=== PATIENT | male | born 1975 | race Caucasian/White ===

== ENCOUNTER → 2018-07-10 08:10 | Outpatient (CLI) | payer OTHER, SELFPAY ==
[2018-07-10 10:08] LABS: Creatinine, Serum 1.18 mg/dL (0.70-1.30); EST Glomerular Filtration Rate 72 mL/min (>60); Est Glom Filt Rate - Afr Amer 87 mL/min (>60)
== END ==
PROVIDERS: Family Provider Family Medicine; PCP Family Medicine; Referring Provider Orthopaedic Surgery; Visit Provider Orthopaedic Surgery
DX: Z79.1 Long term (current) use of non-steroidal anti-inflammatories (NSAID) (principal)
CPT/HCPCS: 36415; 82565

== ENCOUNTER 2018-12-06 01:59 | Observation (INO) | payer OTHER, SELFPAY ==
[2018-12-06] VITALS (11 sets, daily range): BP systolic 124–162; BP diastolic 71–97; PULSE 60–83; RESP 10–16; TEMP 36.5–36.9; O2SAT 94–98; BMI 51.9; BMI 51.3; BMI 51.4
--- NOTE | 2018-12-06 02:00 | ED.RN ---
CALLED FOR EKG PER REQUEST, NO OLD EKGS IN MUSE
--- NOTE | 2018-12-06 02:12 | EKG12_ITS ---
Test Reason : CP Blood Pressure : / mmHG Vent. Rate : 078 BPM Atrial Rate : 078 BPM P-R Int : 154 ms QRS Dur : 104 ms QT Int : 400 ms P-R-T Axes : 046 021 036 degrees QTc Int : 456 ms Normal sinus rhythm Normal ECG Confirmed by POORNIMA PARMAR, JUSTINE ([id number]), publishing editor MARI EVANS ([id number]) on 12/09/2018 1:19:01 PM Referred By: RONEL Confirmed By:JUSTINE NOGUERA MD
--- NOTE | 2018-12-06 02:12 | RAD_ITS ---
HISTORY: chest pain EXAM:XR Chest 1 View portable COMPARISON: None FINDINGS: Portable overpenetrated technique. Mild elevation of the right hemidiaphragm compatible with chronic change. Normal heart size. No vascular congestion, pleural effusion, or acute pulmonary infiltration. No pneumothorax seen. The bony thorax appears intact. RAD/Chest 1 View (Portable) IMPRESSION: 1. No acute cardiopulmonary disease. at 0253 Reported and signed by: Keo Oates MD Electronically Signed: Keo Oates, at 2:52 EDT Tel , Service support ,
--- NOTE | 2018-12-06 02:22 | ED.DCSUM_ITS ---
- ER Visit Summary Date of Service: 12/06/18 Chief Complaint: Chest pain History of Present Illness: The patient is a 43 M presenting with chest pain. Patient states the pain is a tightness in his left and mid chest which radiates to his left arm and jaw. He has had associated diaphoresis and shortness of breath. He has had lightheadedness. This started 1 hour prior to arrival. He does not recall anything that makes this better or worse. He chews tobacco, his father had an OR age over 55. No other CAD risk factors. Denies PE/DVT risk factors. Physical Examination: Vitals are stable. Patient is afebrile. Alert no acute distress. HEENT exam is unremarkable. Neck is supple. Lungs are clear and equal bilaterally. Heart is regular rate and rhythm. Abdomen is soft nontender nondistended. Extremities are unremarkable. Skin is warm and dry. No focal neurologic deficit. Remainder of exam is unremarkable. Emergency Department Course and Treatment: Patient has an allergy to aspirin. EKG is sinus rate of 78 with no acute ischemic changes. Chest x-ray shows no acute process. CBC is normal except for white count 13.0. Chemistries unremarkable. Troponin is negative. On reevaluation patient is chest pain- free. Discussed with the hospitalist for observation. Disposition: Observation Impression: Chest pain This note was generated with [employer] dictation software. It may contain incorrect words, spelling, and punctuation that were not noted in review of the chart prior to signing ED Disposition - Plan for ED Patient: Referrals: Mau Encarnacion MD [Primary Care Provider] -
[2018-12-06 02:34] LABS: Absolute Lymphocyte Count 3.82 X10^3/ul (0.83-4.51); Absolute Neutrophil Count 7.7 X10^3/uL (2.0-7.7); Basophil# 0.04 X10^3/uL; Basophil% 0.3 % (0-1); Eosinophil# 0.24 X10^3/uL; Eosinophils% 1.8 % (0-5); Hematocrit 44.6 % (40-54); Hemoglobin 15.7 g/dl (13.0-16.5); Lymphocyte # 3.82 X10^3/ul (4.0); Lymphocyte % 29.4 % (19-41); Mean Corp Hgb Conc 35.2 g/gl (32-36); Mean Corpuscular Hgb 32.1 pg (27.0-32.0); Mean Corpuscular Volume 91.2 fL (80-94); Mean Platelet Vol. 10.9 fl (6.2-12.0); Monocyte# 1.15 X10^3/uL; Monocyte% 8.8 % (0-10); Neutrophil % 59.3 % (47-70); Platelet Count 268 K/mm3 (150-450); RBC Distribution Width CV 12.2 % (11.6-14.6); RBC Distribution Width SD 40.7 fl (35.1-43.9); Red Blood Count 4.89 M/mm3 (4.6-6.2)
[2018-12-06 02:37] LABS: POSITIVE COUNT NO; POSITIVE DIFFERENTIAL NO; POSITIVE MORPHOLOGY NO
[2018-12-06 02:47] LABS: Anion Gap 3 (5-15); BUN 18 mg/dL (7-18); BUN/Creat Ratio 14.5 RATIO (10-20); Calcium,Total 8.7 mg/dL (8.5-10.1); Chloride 105 mmol/L (98-107); Creatinine, Serum 1.24 mg/dL (0.70-1.30); EST Glomerular Filtration Rate 67 mL/min (>60); Est Glom Filt Rate - Afr Amer 82 mL/min (>60); Estimated Creatinine Clearance 79.31 ml/min; Glucose 94 mg/dL (74-106); Potassium 4.4 mmol/L (3.5-5.1); Sodium Level 138 mmol/L (136-145)
--- NOTE | 2018-12-06 03:41 | HP.PCM_ITS ---
Problem List (1) Chest pain at rest Status: Acute History of Present Illness Date of Admission: 12/06/18 Chief Complaint: chest pain The patient is a 43 year old M with a significant history of super morbid obesity who presented to the emergency department with chest pain at rest. His chest pain began a few hours before presented to the emergency department. His chest pain lasted for 10 minutes. The pain was substernal. It felt like a heaviness on his chest. Also he had a crampy sensation of his left. Further, he had pain in his jaw. He reports previous episodes of pain in his jaw and a crampy-like left arm pain and numbness of his fingers. His chest pain was relieved with walking up. He denies any aggravating factors. He was scared because of the chest pain. He reports restless leg associated with his chest pain. He denies any nausea, vomiting or diaphoresis. Past Medical History Medical History: Medical History (Last Updated 12/06/18 @ 07:17 by Rajinder Rdz MD) Morbid obesity E66.01 Allergies aspirin Allergy (Verified 12/06/18 01:59) Hives Home Medications: Ambulatory Orders Medication Instructions Recorded Celecoxib 200 mg PO DAILY 04/26/17 traMADol [Ultram] 50 - 100 mg PO Q8H PRN PRN #0 04/27/17 Surgical History: herniorrhaphy, - - Two back surgery; and two right ankle surgery. Lives: With Family Smoking Status: Current every day smoker Tobacco Use: Chew Alcohol: None - *Family History Maternal History Items: - - Patient do not know. Paternal History Items: Heart Disease, - - Leukemia Review of Systems Constitutional: Denies: Chills, Fever, Weight Change HEENT: Denies: Head Aches, Sinus Congestion, Sinus Drainage Cardiovascular: Reports: Chest Pain. Denies: Palpitations Respiratory: Denies: Cough, Shortness of breath at rest, Sputum production Gastrointestinal: Denies: Abdominal Pain, Nausea, Vomiting Genitourinary: Denies: Dysuria Musculoskeletal: Reports: Arm Pain. Denies: Joint Pain, Joint Tenderness Skin: Denies: Rash, Wounds Neurological: Denies: Numbness, Tingling, Focal weakness Psychiatric: Denies: Anxiety, Depression, Homicidal Ideations, Suicidal Ideations Hematologic/ Lymphatic: Denies: Easy Bruising, Easy Bleeding VTE Information - Inpt Only VTE Present on Admission: No VTE Mechan Device Prophylaxis: None VTE Pharm Prophylaxis ordered?: Yes Patient Problems: Active and Suspected Problems Chest pain at rest (Acute) - Physical Exam General: Alert, Oriented x3, Cooperative, - - Super morbidly obese. HEENT: Atraumatic, PERRLA, EOMI, Normocephalic Neck: Supple, No JVD, Negative Carotid Bruits Lungs: Clear to auscultation, Normal air movement Cardiovascular: Regular rate, No murmurs Abdomen: Bowel Sounds Present, Soft, Non Tender Extremities: No edema, Capillary Refill Less than 3 Seconds Skin: No rashes, No breakdown Musculoskeletal: No Tenderness to Palpation of Joints or Extremities Neurological: Cranial nerves II-XII grossly intact Psych/Mental Status: Normal Affect, Appropriate Vital Signs Temp Pulse Resp BP Pulse Ox 98.4 F 73 12 130/80 H 98 12/06/18 02:00 12/06/18 03:09 12/06/18 03:09 12/06/18 03:09 12/06/18 03:09 Oxygen Delivery Method Room Air Weight: 164.1 kg Body Mass Index (BMI) 51.9 Laboratory Tests Past 24 Hrs 12/06/18 12/06/18 02:25 02:25 WBC 13.0 H RBC 4.89 Hgb 15.7 Hct 44.6 MCV 91.2 MCH 32.1 H MCHC 35.2 RDW 12.2 RDW Differential 40.7 Plt Count 268 MPV 10.9 Immature Gran % (Auto) 0.400 Neut % (Auto) 59.3 Lymph % (Auto) 29.4 [place] % (Auto) 8.8 Eos % (Auto) 1.8 Baso % (Auto) 0.3 Absolute Neuts (auto) 7.7 Absolute Lymphs (auto) 3.82 Total Counted Not Reportable Sodium 138 Potassium 4.4 Chloride 105 Carbon Dioxide 30.0 Anion Gap 3 L BUN 18 Creatinine 1.24 Estim Creat Clear Calc 79.31 Est GFR (MDRD) Af Amer 82 Est GFR (MDRD) Non-Af 67 BUN/Creatinine Ratio 14.5 Glucose 94 Calcium 8.7 Troponin I < 0.015 Assessment/Plan All Active Problems Chest pain at rest (Acute) Injury of spinal nerve root at S1 level (Acute) Acute back pain (Acute) The patient is a 43 year old M with a significant history of super morbid obesity who presented to the emergency department with chest and numbness as well as pain in his jaw concerning for cardiac source of chest pain. Chest pain Admit to a monitored bed on PCU CXR independently reviewed confirms no acute cardiopulmonary process. EKG independently reviewed confirms EKG ASA 81 mg p.o. daily SL NTG 0.4 mg prn as needed for chest pain Morphine as needed for pain He reported that recently he had lipid level that was unremarkable. First cardiac enzymes was unremarkable. Serial cardiac enzymes Stat EKG as needed for chest pain Chemical stress test in the AM if the cardiac enzymes are negative. Because of right ankle surgery patient reported that he is unable to walk on a treadmill. Chronic pain Home NSAID held because of chest pain Home tramadol held because patient has PRN morphine ordered for pain. Tobacco abuse Chew tobacco . Counselled. DVT prophylaxis Continuous heparin ordered. Code Visit OBSV E&M: 89575 Initial observation care L3
--- NOTE | 2018-12-06 04:22 | EKG12_ITS ---
Test Reason : ADMIT EKG Blood Pressure : / mmHG Vent. Rate : 063 BPM Atrial Rate : 063 BPM P-R Int : 158 ms QRS Dur : 102 ms QT Int : 406 ms P-R-T Axes : 052 030 052 degrees QTc Int : 415 ms Normal sinus rhythm Normal ECG When compared with ECG of 06-DEC-2018 02:06, MANUAL COMPARISON REQUIRED, DATA IS UNCONFIRMED Confirmed by POORNIMA PARMAR, JUSTINE ([id number]), book or script editor MARI EVANS ([id number]) on 12/09/2018 2:02:47 PM Referred By: DR LOVETT Confirmed By:JUSTINE NOGUERA MD
--- NOTE | 2018-12-06 05:55 | NM_ITS ---
CLINICAL: 43-year-old male with reported history of chest discomfort. REST-REGADENOSON 99m Tc SESTAMIBI STRESS MYOCARDIAL PERFUSION SPECT COMPARISON: None available FINDINGS: Following the intravenous administration of 15.0 mCi of 99m Tc sestamibi, the resting myocardial perfusion acquisitions demonstrate relatively uniform perfusion noted throughout all left ventricular myocardial segments. The patient was administered intravenous regadenoson (0.4 mgm). Following the intravenous administration of 45.0 mCi of 99m Tc sestamibi, the post regadenoson images reveal decreased perfusion in the inferior, basal inferior and mid to basal anterior segments. The post stress resting left ventricular ejection fraction is calculated to be 64.0 % by gated SPECT technique. Wall motion and end systolic thickening are considered normal. NM/Nuclear Stress Test - Chemical IMPRESSION: 1. ABNORMAL REST-REGADENOSON STRESS 99m Tc SESTAMIBI MYOCARDIAL PERFUSION SPECT. A. Pharmacologic induced left ventricular ischemia involving the inferior, basal inferior, mid to basal anterior segments. B. Preservation of resting left ventricular myocardial systolic function. (Jodi et al, J Nucl Med 37: 105P, 1996). C. If false positive stress cardiac perfusion SPECT results are a diagnostic consideration, correlation with a stress echocardiogram may be of benefit for further evaluation in the setting of questionable cardiac perfusion SPECT imaging results. (Schinkel et al, Eur J Heart 24: 789, 2003). Electronically Signed: Kenrick Ontiveros DO at 13:55 EDT Tel , Service support ,
[2018-12-06 06:45] LABS: Prothrombin Time (Protime)PT. 13.1 SECONDS (11.7-14.9)
[2018-12-06 09:41] LABS: Bedside Glucose 86 mg/dL (70-110)
--- NOTE | 2018-12-06 14:41 | PN_ITS ---
<Damien Lr - Last Filed: 12/06/18 14:37> Patient Problems: Active and Suspected Problems (Last Updated 12/06/18 @ 07:17 by Rajinder Rdz MD) Chest pain at rest (Acute) Subjective: No further chest pain since admission. He had a positive stress test today. He has no prior hx cardiac dz. + father had UT. + uses chewing tobacco. 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 Chest pain has occurred intermittently for the past several weeks. is frustrated and wants answers. - Physical Exam General: Alert, Oriented x3, Cooperative HEENT: Atraumatic, PERRLA, EOMI, Normocephalic Neck: Supple, No JVD, Negative Carotid Bruits Lungs: Clear to auscultation, Normal air movement Cardiovascular: Regular rate, No murmurs Abdomen: Bowel Sounds Present, Soft, Non Tender, Obese Extremities: No edema, Capillary Refill Less than 3 Seconds Skin: No rashes, No breakdown Musculoskeletal: No Tenderness to Palpation of Joints or Extremities Neurological: Cranial nerves II-XII grossly intact Psych/Mental Status: Normal Affect, Appropriate, Alert and oriented to time, place, person, mood and affect Vital Signs Temp Pulse Resp BP Pulse Ox 97.9 F 83 16 124/71 H 95 12/06/18 14:08 12/06/18 14:08 12/06/18 14:08 12/06/18 14:08 12/06/18 14:08 Oxygen Delivery Method Room Air Weight: 358 lb 14.601 oz Body Mass Index (BMI) 51.3 Laboratory Tests Past 24 Hrs 12/06/18 12/06/18 12/06/18 02:25 02:25 05:30 WBC 13.0 H RBC 4.89 Hgb 15.7 Hct 44.6 MCV 91.2 MCH 32.1 H MCHC 35.2 RDW 12.2 RDW Differential 40.7 Plt Count 268 MPV 10.9 Immature Gran % (Auto) 0.400 Neut % (Auto) 59.3 Lymph % (Auto) 29.4 [place] % (Auto) 8.8 Eos % (Auto) 1.8 Baso % (Auto) 0.3 Absolute Neuts (auto) 7.7 Absolute Lymphs (auto) 3.82 Total Counted Not Reportable PT INR APTT Sodium 138 Potassium 4.4 Chloride 105 Carbon Dioxide 30.0 Anion Gap 3 L BUN 18 Creatinine 1.24 Estim Creat Clear Calc 79.31 Est GFR (MDRD) Af Amer 82 Est GFR (MDRD) Non-Af 67 BUN/Creatinine Ratio 14.5 Glucose 94 Calcium 8.7 Troponin I < 0.015 < 0.015 12/06/18 12/06/18 05:30 08:20 WBC RBC Hgb Hct MCV MCH MCHC RDW RDW Differential Plt Count MPV Immature Gran % (Auto) Neut % (Auto) Lymph % (Auto) [place] % (Auto) Eos % (Auto) Baso % (Auto) Absolute Neuts (auto) Absolute Lymphs (auto) Total Counted PT 13.1 INR 1.0 APTT 32.0 Sodium Potassium Chloride Carbon Dioxide Anion Gap BUN Creatinine Estim Creat Clear Calc Est GFR (MDRD) Af Amer Est GFR (MDRD) Non-Af BUN/Creatinine Ratio Glucose Calcium Troponin I < 0.015 POC Glucose 12/06/18 04:31 POC Glucose 86 Medical Necessity - Tobacco Use Smoking Status: Current every day smoker Tobacco Use: Chew Assessment/Plan All Active Problems (Last Updated 12/06/18 @ 07:17 by Rajinder Rdz MD) Acute back pain (Acute) Injury of spinal nerve root at S1 level (Acute) Chest pain at rest (Acute) 1. Chest pain - troponin neg. Tele neg. EKG neg. -Stress abnormal -Pt agreeable to further eval/cath/staying till saturday if needed -cardiology consulted -risk factors include tobacco use, family hx, obesity -recurrent episodic chest pain for several weeks. -he is allergic to aspirin 2. Tobacco abuse - chewing tobacco - patch if desired 3. Obesity - dietary eval 4. Htn - no prior hx - somewhat elevated, fluctuant while here, continue to trend, defer starting meds at this point. DC planning: pending further workup This patient was seen by Damien Lr PA-C under the supervision of Dr. Feng. <Luann Feng - Last Filed: 12/06/18 14:50> - Physical Exam Vital Signs Temp Pulse Resp BP Pulse Ox 97.9 F 83 16 124/71 H 95 12/06/18 14:08 12/06/18 14:08 12/06/18 14:08 12/06/18 14:08 12/06/18 14:08 Oxygen Delivery Method Room Air Weight: 358 lb 14.601 oz Body Mass Index (BMI) 51.3 Laboratory Tests Past 24 Hrs 12/06/18 12/06/18 12/06/18 02:25 02:25 05:30 WBC 13.0 H RBC 4.89 Hgb 15.7 Hct 44.6 MCV 91.2 MCH 32.1 H MCHC 35.2 RDW 12.2 RDW Differential 40.7 Plt Count 268 MPV 10.9 Immature Gran % (Auto) 0.400 Neut % (Auto) 59.3 Lymph % (Auto) 29.4 [place] % (Auto) 8.8 Eos % (Auto) 1.8 Baso % (Auto) 0.3 Absolute Neuts (auto) 7.7 Absolute Lymphs (auto) 3.82 Total Counted Not Reportable PT INR APTT Sodium 138 Potassium 4.4 Chloride 105 Carbon Dioxide 30.0 Anion Gap 3 L BUN 18 Creatinine 1.24 Estim Creat Clear Calc 79.31 Est GFR (MDRD) Af Amer 82 Est GFR (MDRD) Non-Af 67 BUN/Creatinine Ratio 14.5 Glucose 94 Calcium 8.7 Troponin I < 0.015 < 0.015 12/06/18 12/06/18 05:30 08:20 WBC RBC Hgb Hct MCV MCH MCHC RDW RDW Differential Plt Count MPV Immature Gran % (Auto) Neut % (Auto) Lymph % (Auto) [place] % (Auto) Eos % (Auto) Baso % (Auto) Absolute Neuts (auto) Absolute Lymphs (auto) Total Counted PT 13.1 INR 1.0 APTT 32.0 Sodium Potassium Chloride Carbon Dioxide Anion Gap BUN Creatinine Estim Creat Clear Calc Est GFR (MDRD) Af Amer Est GFR (MDRD) Non-Af BUN/Creatinine Ratio Glucose Calcium Troponin I < 0.015 POC Glucose 12/06/18 04:31 POC Glucose 86 Assessment/Plan Patient seen by Damien Lr PA-C under my supervision Patient was admitted with a complaint of chest pain. Troponins x 3 were negative, and EKG showed no acute ST changes. Patient seen and examined this morning. He had no complaints. Chest pain had not recurred. However he states last day he had similar chest pain. Review of systems otherwise negative. Labs and vitals reviewed. o/e: Vital Signs Height 5 ft 10.08 in Weight: 358 lb 14.601 oz Weight in Pounds 358.9 lbs Pulse Ox 95 Temperature 97.9 F Pulse Rate 83 Respiratory Rate 16 Blood Pressure 124/71 Blood Pressure Position Supine General: Alert, Oriented x3, Cooperative HEENT: Atraumatic, PERRLA, EOMI, Normocephalic Neck: Supple, No JVD, Negative Carotid Bruits Lungs: Clear to auscultation, Normal air movement Cardiovascular: Regular rate, No murmurs Abdomen: Bowel Sounds Present, Soft, Non Tender, Obese Extremities: No edema, Capillary Refill Less than 3 Seconds Skin: No rashes, No breakdown Musculoskeletal: No Tenderness to Palpation of Joints or Extremities Neurological: Cranial nerves II-XII grossly intact Psych/Mental Status: Normal Affect, Appropriate, Alert and oriented to time, place, person, mood and affect Patient had stress test this morning which was abnormal, which showed pharmacologic induced left ventricular ischemia involving the inferior, basal inferior and mid to basal anterior segments. Plan is for cardiac cath on Saturday. Rest of management as per Damien Lr PA-C's note, which I have reviewed and endorsed. Code Visit OBSV E&M: 61062 Subsequent observation care L2
--- NOTE | 2018-12-06 15:00 | CASEMGMT ---
Insurance Review for In Network Facilities if transfer is recommended: Chloe Panchal Aultman, [facility], [facility], , [employer]. Daphnie Iqbal, CASSCM
[2018-12-06] MEDS: Heparin Injection (Vial) 5,000 UNIT/ML VIAL 5000 UNIT SC ×2 (15:45→21:37)
[2018-12-06] MEDS: 0.9% NaCl Peripheral Flush Adult/Peds IV (19:59)
[2018-12-07] VITALS (10 sets, daily range): BP systolic 126–141; BP diastolic 66–86; PULSE 60–90; RESP 16; TEMP 36.4–36.8; O2SAT 95–96
[2018-12-07] MEDS: Heparin Injection (Vial) 5,000 UNIT/ML VIAL 5000 UNIT SC ×3 (05:02→20:14)
[2018-12-07] MEDS: 0.9% NaCl Peripheral Flush Adult/Peds IV (05:03)
[2018-12-07 06:28] LABS: Absolute Lymphocyte Count 3.51 X10^3/ul (0.83-4.51); Absolute Neutrophil Count 5.9 X10^3/uL (2.0-7.7); Basophil# 0.04 X10^3/uL; Basophil% 0.4 % (0-1); Eosinophil# 0.26 X10^3/uL; Eosinophils% 2.5 % (0-5); Hematocrit 43.9 % (40-54); Hemoglobin 15.2 g/dl (13.0-16.5); Lymphocyte # 3.51 X10^3/ul (4.0); Lymphocyte % 33.2 % (19-41); Mean Corp Hgb Conc 34.6 g/gl (32-36); Mean Corpuscular Hgb 31.7 pg (27.0-32.0); Mean Corpuscular Volume 91.6 fL (80-94); Mean Platelet Vol. 11.1 fl (6.2-12.0); Monocyte# 0.79 X10^3/uL; Monocyte% 7.5 % (0-10); Neutrophil # 5.94 X10^3/uL (2.7-7.7); Platelet Count 259 K/mm3 (150-450); RBC Distribution Width CV 12.3 % (11.6-14.6); RBC Distribution Width SD 41.5 fl (35.1-43.9); Red Blood Count 4.79 M/mm3 (4.6-6.2); White Blood Count 10.6 K/mm3 (4.4-11.0)
[2018-12-07 06:32] LABS: POSITIVE COUNT NO; POSITIVE DIFFERENTIAL NO; POSITIVE MORPHOLOGY NO
[2018-12-07 09:03] LABS: Cholesterol 174 mg/dL (200); High Density Lipoprotein 43 mg/dL; Triglycerides 192 mg/dL; Very Low Density Lipoprotein 38 mg/dL (5-40)
[2018-12-07 09:08] LABS: Hemoglobin A1c 5.5 % (4.2-6.3)
--- NOTE | 2018-12-07 09:13 | PCM.CONS.C ---
Problem List (1) Chest pain at rest Status: Acute Reason for Consult Date of Consultation: 12/07/18 History of Present Illness: The patient is a 43 year old M with past medical history significant for morbid obesity. He presented to the emergency room with complaints of anterior chest discomfort with radiation to the left arm neck and jaw. He describes this as pressure. The discomfort lasted about 10 minutes and was relieved on its own. In the hospital, his troponins were noted to be negative. He had a Lexiscan stress Cardiolite done which has been reported as showing possible inferior ischemia. Patient denies any history of exertional angina. According to him, he does get short of breath with moderate exertion. According to his , he snores loudly at night and seems to stop breathing on occasions. Denies any ankle edema. [] Past Medical History Allergies/Adverse Reactions: Allergies aspirin Allergy (Verified 12/06/18 01:59) Hives Home Medications: Ambulatory Orders Medication Instructions Recorded Celecoxib 200 mg PO DAILY 04/26/17 traMADol [Ultram] 50 - 100 mg PO Q8H PRN PRN #0 04/27/17 Surgical History: herniorrhaphy, - - Two back surgery; and two right ankle surgery. - *Family History Maternal History Items: - - Patient do not know. Paternal History Items: Heart Disease, - - Leukemia Lives: With Family Smoking Status: Current every day smoker Tobacco Use: Chew Alcohol: None Review of Systems - Review of Systems General: Denies: Fever, Chills, Anorexia Cardiovascular: Reports: Chest Discomfort at Rest, Shortness of Breath with Exertion, PND. Denies: Orthopnea Skin: Denies: Jaundice Neurological: Denies: History of TIA, History of CVA Hematologic/ Lymphatic: Denies: Easy Brusing, Easy Bleeding Subjectve: Comfortable. No apparent distress Objective: Vital Signs Temp Pulse Resp BP Pulse Ox 97.9 F 72 16 126/81 H 95 12/07/18 08:15 12/07/18 08:15 12/07/18 08:15 12/07/18 08:15 12/07/18 08:15 Oxygen Delivery Method Room Air Weight: 162.8 kg Body Mass Index (BMI) 51.3 Intake and Output for Last 24 Hours 12/05/18 12/06/18 12/07/18 23:59 23:59 23:59 Intake Total 840 / 840 Balance 840 / 840 General: Awake, Alert, Oriented x 3, Obese HEENT: Atraumatic, Normocephalic Oral: Moist Mucosa Neck: Supple Lungs: Clear to auscultation Cardiovascular: Regular Rhythm, Normal S1, Normal S2 Abdomen: Bowel Sounds Present, Soft, Non Tender, Obese Extremities: No edema Neurological: No Focal Motor or Sensory Deficit Psych/Mental Status: Appropriate 12/06/18 08:20: Troponin I < 0.015 12/07/18 06:00: WBC 10.6, RBC 4.79, Hgb 15.2, Hct 43.9, MCV 91.6, MCH 31.7, MCHC 34.6, RDW 12.3, RDW Differential 41.5, Plt Count 259, MPV 11.1, Immature Gran % (Auto) 0.400, Neut % (Auto) 56.0, Lymph % (Auto) 33.2, [place] % (Auto) 7.5, Eos % (Auto) 2.5, Baso % (Auto) 0.4, Absolute Neuts (auto) 5.9, Total Counted Not Reportable 12/07/18 06:00: Triglycerides 192, Cholesterol 174, LDL Cholesterol 93, VLDL Cholesterol 38, HDL Cholesterol 43 12/07/18 06:00: Hemoglobin A1c 5.5 Rhythm: Normal sinus rhythm EKG: Normal sinus rhythm ECHO: Stress Test: Pharmacologic induced left ventricular ischemia involving the inferior, basal inferior, mid to basal anterior segments Cardiac Cath: PCI: CT Surgery: Holter monitor: EPS: PPM: CXR: Chest CT Scan: Assessment/Plan 1. Episode of chest arm and jaw tightness. Abnormal stress test. Consider ischemia. Options discussed with patient. Coronary angiography with possible revascularization was offered. Risks benefits and alternatives were explained. He understands these and wishes to proceed. 2. Patient allergic to aspirin with history of hives. Load with clopidogrel in anticipation of possible revascularization. 3. Obesity. Counseled to lose weight. 4. History of nicotine dependence. Stop smoking. 5. Possible sleep apnea. Consider work-up for sleep apnea.
--- NOTE | 2018-12-07 09:46 | ECHOCS_ITS ---
Reason For Study: Chest Pain Procedure This was a 2D Doppler, Color Flow transthoracic echocardiogram. The study was technically difficult. Contrast injection was performed. Exam performed portable in patient room. Left Ventricle Normal LV size. Left ventricular systolic function is normal. The estimated ejection fraction is 60 %. Normal diastology for age. No regional wall motion abnormalities noted. Right Ventricle Normal RV size. Normal systolic function. Atria Normal left atrium. Normal right atrium. Mitral Valve Normal mitral valve. Tricuspid Valve Normal tricuspid valve. Unable to estimate RV systolic pressure due to inadequate jet, pulmonary artery pressure probably normal. Aortic Valve Normal aortic valve. Pulmonic Valve Normal pulmonic valve. Great Vessels Normal aortic root. The pulmonary artery is normal size. Normal inferior vena cava. Pericardium/Pleural No pericardial effusion. Medication Diluted definity 3ml given slow IV push to enhance endocardial definition. MMode/2D Measurements & Calculations LVIDd: 5.4 cm IVSd: 1.1 cm Ao root diam: 3.4 cm LVIDs: 3.2 cm LVPWd: 1.2 cm RVDd: 3.3 cm FS: 40.8 % LAV(MOD-bp): 35.8 ml LVAd ap4: 37.3 cm2 SV(MOD-sp4): 85.5 ml LAV(MOD-bp) Indexed: 13.4 ml/m2 EDV(MOD-sp4): 134.2 ml LAV(MOD-sp2): 40.1 ml EDV(sp4-el): 140.3 ml LAV(MOD-sp4): 31.2 ml LVAs ap4: 19.8 cm2 ESV(MOD-sp4): 48.8 ml ESV(sp4-el): 47.6 ml EF(MOD-sp4): 63.7 % EF(sp4-el): 66.0 % SV(sp4-el): 92.6 ml LA A4 area: 14.4 cm2 LA dimension(2D): 4.1 cm RA A4 area: 14.9 cm2 Doppler Measurements & Calculations MV E max jose: 87.9 cm/sec Lat Peak E' Jose: 12.9 cm/sec Med Peak E' Jose: 8.6 cm/sec MV A max jose: 72.6 cm/sec E/E' lat: 6.8 E/E' med: 10.2 MV E/A: 1.2 Ao V2 max: 121.7 cm/sec LV V1 max: 108.8 cm/sec PA V2 max: 96.3 cm/sec Ao max P.9 mmHg LV V1 max P.7 mmHg Ao V2 mean: 91.3 cm/sec Ao mean P.6 mmHg Ao V2 VTI: 25.4 cm Interpretation Summary Normal LV size. Left ventricular systolic function is normal. The estimated ejection fraction is 60 %. Normal diastology for age. Contrast injection was performed. Ordering Physician: Iza White Referring Physician: Navdeep Encarnacion Performed By: Svitlana Lo, LUZ, RVT
[2018-12-07] MEDS: Clopidogrel Bisulfate 300 MG Tablet PO (10:44)
--- NOTE | 2018-12-07 12:56 | PCM.PROGNOTE ---
<Damien Lr - Last Filed: 12/07/18 12:56> Patient Problems: Active and Suspected Problems (Last Updated 12/06/18 @ 07:17 by Rajinder Rdz MD) Chest pain at rest (Acute) Subjective: No issues overnight. No further CP, no SOB, no palp, no dizziness, no LH. concerned about possible sleep apnea. She did confirm that he has witnessed apneic episodes. Denies snoring We discussed the need for outpatient sleep study. He is agreeable. Pt agreeable to heart cath in AM. - Physical Exam General: Alert, Oriented x3, Cooperative HEENT: Atraumatic, PERRLA, EOMI, Normocephalic Neck: Supple, No JVD, Negative Carotid Bruits Lungs: Clear to auscultation, Normal air movement Cardiovascular: Regular rate, No murmurs Abdomen: Bowel Sounds Present, Soft, Non Tender, Obese Extremities: No edema, Capillary Refill Less than 3 Seconds Skin: No rashes, No breakdown Musculoskeletal: No Tenderness to Palpation of Joints or Extremities Neurological: Cranial nerves II-XII grossly intact Psych/Mental Status: Normal Affect, Appropriate, Alert and oriented to time, place, person, mood and affect Vital Signs Temp Pulse Resp BP Pulse Ox 97.9 F 72 16 126/81 H 95 12/07/18 08:15 12/07/18 08:15 12/07/18 08:15 12/07/18 08:15 12/07/18 08:15 Oxygen Delivery Method Room Air Weight: 358 lb 14.601 oz Body Mass Index (BMI) 51.3 Intake and Output for Last 24 Hours 12/05/18 12/06/18 12/07/18 23:59 23:59 23:59 Intake Total 840 / 840 Balance 840 / 840 Laboratory Tests Past 24 Hrs 12/07/18 12/07/18 12/07/18 06:00 06:00 06:00 WBC 10.6 RBC 4.79 Hgb 15.2 Hct 43.9 MCV 91.6 MCH 31.7 MCHC 34.6 RDW 12.3 RDW Differential 41.5 Plt Count 259 MPV 11.1 Immature Gran % (Auto) 0.400 Neut % (Auto) 56.0 Lymph % (Auto) 33.2 [place] % (Auto) 7.5 Eos % (Auto) 2.5 Baso % (Auto) 0.4 Absolute Neuts (auto) 5.9 Absolute Lymphs (auto) 3.51 Total Counted Not Reportable Hemoglobin A1c 5.5 Triglycerides 192 Cholesterol 174 LDL Cholesterol 93 VLDL Cholesterol 38 HDL Cholesterol 43 Medical Necessity - Tobacco Use Smoking Status: Current every day smoker Tobacco Use: Chew Assessment/Plan All Active Problems (Last Updated 12/06/18 @ 07:17 by Rajinder Rdz MD) Acute back pain (Acute) Injury of spinal nerve root at S1 level (Acute) Chest pain at rest (Acute) 1. Chest pain - troponin neg. Tele neg. EKG neg. -Stress abnormal -Cardiology following -Cath in AM 2. Tobacco abuse - chewing tobacco - patch if desired 3. Morbid Obesity - dietary eval 4. Htn - no prior hx - somewhat elevated, fluctuant while here, continue to trend, defer starting meds at this point until we see results of Cath. 5. Suspected CITLALLI - STOPBANG at least 4 (htn, morbid obesity, male, witnessed apnea) needs o/p sleep study. Overnight trending pulse ox. DC planning: pending further workup This patient was seen by Damien Lr PA-C under the supervision of Dr. Feng. <Luann Feng - Last Filed: 12/07/18 13:20> - Physical Exam Vital Signs Temp Pulse Resp BP Pulse Ox 97.9 F 72 16 126/81 H 95 12/07/18 08:15 12/07/18 08:15 12/07/18 08:15 12/07/18 08:15 12/07/18 08:15 Oxygen Delivery Method Room Air Weight: 358 lb 14.601 oz Body Mass Index (BMI) 51.3 Intake and Output for Last 24 Hours 12/05/18 12/06/18 12/07/18 23:59 23:59 23:59 Intake Total 840 / 840 Balance 840 / 840 Laboratory Tests Past 24 Hrs 12/07/18 12/07/18 12/07/18 06:00 06:00 06:00 WBC 10.6 RBC 4.79 Hgb 15.2 Hct 43.9 MCV 91.6 MCH 31.7 MCHC 34.6 RDW 12.3 RDW Differential 41.5 Plt Count 259 MPV 11.1 Immature Gran % (Auto) 0.400 Neut % (Auto) 56.0 Lymph % (Auto) 33.2 [place] % (Auto) 7.5 Eos % (Auto) 2.5 Baso % (Auto) 0.4 Absolute Neuts (auto) 5.9 Absolute Lymphs (auto) 3.51 Total Counted Not Reportable Hemoglobin A1c 5.5 Triglycerides 192 Cholesterol 174 LDL Cholesterol 93 VLDL Cholesterol 38 HDL Cholesterol 43 Assessment/Plan Patient seen by Damien Lr PA-C under my supervision Patient was admitted with a complaint of chest pain. Troponins x 3 were negative, and EKG showed no acute ST changes. Patient seen and examined this morning. He had no complaints. Chest pain had not recurred. However he states last day he had similar chest pain. Review of systems otherwise negative. Labs and vitals reviewed. o/e: Vital Signs Height 5 ft 10.08 in Weight: 358 lb 14.601 oz Weight in Pounds 358.9 lbs Pulse Ox 95 Temperature 97.9 F Pulse Rate 72 Respiratory Rate 16 Blood Pressure 126/81 Blood Pressure Position Supine General: Alert, Oriented x3, Cooperative, morbidly obese HEENT: Atraumatic, PERRLA, EOMI, Normocephalic Neck: Supple, No JVD, Negative Carotid Bruits Lungs: Clear to auscultation, Normal air movement Cardiovascular: Regular rate, No murmurs Abdomen: Bowel Sounds Present, Soft, Non Tender, Obese Extremities: No edema, Capillary Refill Less than 3 Seconds Skin: No rashes, No breakdown Musculoskeletal: No Tenderness to Palpation of Joints or Extremities Neurological: Cranial nerves II-XII grossly intact Psych/Mental Status: Normal Affect, Appropriate, Alert and oriented to time, place, person, mood and affect Patient is to have cardiac cath tomorrow o/a of abnormal stress test. Lipid panel checked and was WNL; A1C was also 5.5. Rest of management as per Damien Lr PA-C's note, which I have reviewed and endorsed. Code Visit Inpatient E&M: 87213 Subs Hosp L2
[2018-12-08] VITALS (11 sets, daily range): BP systolic 115–136; BP diastolic 65–89; PULSE 62–84; RESP 16–18; TEMP 36.6–36.9; O2SAT 93–97
[2018-12-08 00:13] LABS: Bacteria 0 SEEN /hpf (None Seen); Mucous, Urine 0 SEEN /hpf (<or=2+); Red Blood Cells-Urine 0 SEEN /hpf (0-5); Squamous Epithelial Cells - UA 0 SEEN /hpf (0-5); White Blood Cells 0 SEEN /hpf (0-5)
[2018-12-08 00:39] LABS: Color, Urine Yellow (Yellow); Glucose, Dipstick Normal (Normal); Ketone-Dipstick Negative (Negative); Leukocyte Esterase-Dipstick Negative /ul (Negative); Nitrite-Dipstick Negative (Negative); Occult Blood-Urine 10 /ul (Negative); Protein-Dipstick Negative (Negative); Urine Bilirubin Dipstick Negative (Negative); Urine Clarity Clear (Clear); Urine Urobilinogen Normal (Normal)
[2018-12-08] MEDS: LORazepam 1 MG Tablet 2 MG PO (03:08)
--- NOTE | 2018-12-08 04:00 | EKG12_ITS ---
Test Reason : AM EKG Blood Pressure : / mmHG Vent. Rate : 070 BPM Atrial Rate : 070 BPM P-R Int : 154 ms QRS Dur : 100 ms QT Int : 390 ms P-R-T Axes : 036 035 026 degrees QTc Int : 421 ms Normal sinus rhythm Normal ECG When compared with ECG of 06-DEC-2018 04:33, MANUAL COMPARISON REQUIRED, DATA IS UNCONFIRMED Confirmed by POORNIMA PARMAR, JUSTINE ([id number]), news copy editor MARI EVANS ([id number]) on 12/09/2018 2:00:18 PM Referred By: BREONNA Confirmed By:JUSTINE NOGUERA MD
[2018-12-08 04:51] LABS: Hemoglobin 14.9 g/dl (13.0-16.5); Mean Corp Hgb Conc 34.7 g/gl (32-36); Mean Corpuscular Hgb 31.2 pg (27.0-32.0); Mean Platelet Vol. 11.1 fl (6.2-12.0); Platelet Count 245 K/mm3 (150-450); RBC Distribution Width CV 12.1 % (11.6-14.6); RBC Distribution Width SD 39.6 fl (35.1-43.9); Red Blood Count 4.78 M/mm3 (4.6-6.2); White Blood Count 10.8 K/mm3 (4.4-11.0)
[2018-12-08 04:54] LABS: Prothrombin Time (Protime)PT. 12.7 SECONDS (11.7-14.9)
[2018-12-08 04:55] LABS: Partial Thromboplast Time 32.3 Seconds (24.1-36.2)
[2018-12-08 04:59] LABS: Scan Indicated on CBC? Y/N NO
[2018-12-08 05:00] LABS: Anion Gap 7 (5-15); BUN 18 mg/dL (7-18); BUN/Creat Ratio 14.9 RATIO (10-20); Chloride 108 mmol/L (98-107); Creatinine, Serum 1.21 mg/dL (0.70-1.30); EST Glomerular Filtration Rate 69 mL/min (>60); Est Glom Filt Rate - Afr Amer 84 mL/min (>60); Estimated Creatinine Clearance 81.28 ml/min; Glucose 94 mg/dL (74-106); Potassium 4.1 mmol/L (3.5-5.1); Sodium Level 141 mmol/L (136-145)
[2018-12-08] MEDS: Clopidogrel Bisulfate 75 MG Tablet PO (06:19)
--- NOTE | 2018-12-08 06:45 | NURSING ---
report called to lab support service tech. spoke with CASS Umana. patient okay to go down.
--- NOTE | 2018-12-08 08:01 | PCM.PN.CARD ---
Subjectve: Patient seen and evaluated. Appears to be doing well. Objective: Vital Signs Temp Pulse Resp BP Pulse Ox 98.1 F 72 16 136/89 H 95 12/08/18 06:16 12/08/18 06:16 12/08/18 06:16 12/08/18 06:16 12/08/18 06:16 Oxygen Flow Rate (L/min) 80 Oxygen Delivery Method Room Air Weight: 358 lb 14.601 oz Body Mass Index (BMI) 51.3 Intake and Output for Last 24 Hours 12/06/18 12/07/18 12/08/18 23:59 23:59 23:59 Intake Total 1440 / 1440 60 / 60 Balance 1440 / 1440 60 / 60 General: Awake, Alert, Oriented x 3 HEENT: PERRL, EOMI, Sclera Non Icteric Neck: Supple, Good ROM, No Lymph Node Enlargement Lungs: Clear to auscultation Cardiovascular: Regular Rhythm, Normal S1, Normal S2, No Murmurs, No Rubs, No Gallops Vascular: No Carotid Bruits, Normal Femoral Pulses, Normal Radial Pulses, Normal Dorsalis Pedal Pulse, Normal Posterior Tibial Pulses Abdomen: Bowel Sounds Present, Soft, Non Tender, No HSM, No Organomegaly Extremities: No Cyanosis, No Clubbing, No edema Neurological: No Focal Motor or Sensory Deficit 12/07/18 06:00: Triglycerides 192, Cholesterol 174, LDL Cholesterol 93, VLDL Cholesterol 38, HDL Cholesterol 43 12/07/18 06:00: Hemoglobin A1c 5.5 12/07/18 23:45: Urine Color Yellow, Urine Clarity Clear, Urine pH 6.0, Ur Specific [place] 1.020, Urine Protein Negative, Urine Glucose (UA) Normal, Urine Ketones Negative, Urine Occult Blood 10 H, Urine Nitrite Negative, Urine Bilirubin Negative, Urine Urobilinogen Normal, Ur Leukocyte Esterase Negative, Urine RBC 0 SEEN, Urine WBC 0 SEEN 12/08/18 04:32: WBC 10.8, RBC 4.78, Hgb 14.9, Hct 43.0, MCV 90.0, MCH 31.2, MCHC 34.7, RDW 12.1, RDW Differential 39.6, Plt Count 245, MPV 11.1 12/08/18 04:32: PT 12.7, INR 1.0, APTT 32.3 12/08/18 04:32: Sodium 141, Potassium 4.1, Chloride 108 H, Carbon Dioxide 26.0, Anion Gap 7, BUN 18, Creatinine 1.21, Est GFR (MDRD) Af Amer 84, Est GFR (MDRD) Non-Af 69, BUN/Creatinine Ratio 14.9, Glucose 94, Calcium 9.0 Rhythm: EKG: ECHO: Stress Test: Cardiac Cath: PCI: CT Surgery: Holter monitor: EPS: PPM: CXR: Chest CT Scan: Medical Necessity - Tobacco Use Smoking Status: Current every day smoker Tobacco Use: Chew Assessment/Plan 1. Chest pain with abnormal stress test Patient underwent cardiac catheterization which demonstrated essentially normal coronary arteries. At this juncture I would suggest discharge the patient for outpatient follow-up. Thank you for allowing me to participate in the care of your patient. Please don't hesitate to call if any issues arise
--- NOTE | 2018-12-08 08:05 | PN.CARD_ITS ---
Subjectve: Patient seen and evaluated. Appears to be doing well. Objective: Vital Signs Temp Pulse Resp BP Pulse Ox 98.1 F 72 16 136/89 H 95 12/08/18 06:16 12/08/18 06:16 12/08/18 06:16 12/08/18 06:16 12/08/18 06:16 Oxygen Flow Rate (L/min) 80 Oxygen Delivery Method Room Air Weight: 358 lb 14.601 oz Body Mass Index (BMI) 51.3 Intake and Output for Last 24 Hours 12/06/18 12/07/18 12/08/18 23:59 23:59 23:59 Intake Total 1440 / 1440 60 / 60 Balance 1440 / 1440 60 / 60 General: Awake, Alert, Oriented x 3 HEENT: PERRL, EOMI, Sclera Non Icteric Neck: Supple, Good ROM, No Lymph Node Enlargement Lungs: Clear to auscultation Cardiovascular: Regular Rhythm, Normal S1, Normal S2, No Murmurs, No Rubs, No Gallops Vascular: No Carotid Bruits, Normal Femoral Pulses, Normal Radial Pulses, Normal Dorsalis Pedal Pulse, Normal Posterior Tibial Pulses Abdomen: Bowel Sounds Present, Soft, Non Tender, No HSM, No Organomegaly Extremities: No Cyanosis, No Clubbing, No edema Neurological: No Focal Motor or Sensory Deficit 12/07/18 06:00: Triglycerides 192, Cholesterol 174, LDL Cholesterol 93, VLDL Cholesterol 38, HDL Cholesterol 43 12/07/18 06:00: Hemoglobin A1c 5.5 12/07/18 23:45: Urine Color Yellow, Urine Clarity Clear, Urine pH 6.0, Ur Specific [place] 1.020, Urine Protein Negative, Urine Glucose (UA) Normal, Urine Ketones Negative, Urine Occult Blood 10 H, Urine Nitrite Negative, Urine Bilirubin Negative, Urine Urobilinogen Normal, Ur Leukocyte Esterase Negative, Urine RBC 0 SEEN, Urine WBC 0 SEEN 12/08/18 04:32: WBC 10.8, RBC 4.78, Hgb 14.9, Hct 43.0, MCV 90.0, MCH 31.2, MCHC 34.7, RDW 12.1, RDW Differential 39.6, Plt Count 245, MPV 11.1 12/08/18 04:32: PT 12.7, INR 1.0, APTT 32.3 12/08/18 04:32: Sodium 141, Potassium 4.1, Chloride 108 H, Carbon Dioxide 26.0, Anion Gap 7, BUN 18, Creatinine 1.21, Est GFR (MDRD) Af Amer 84, Est GFR (MDRD) Non-Af 69, BUN/Creatinine Ratio 14.9, Glucose 94, Calcium 9.0 Rhythm: EKG: ECHO: Stress Test: Cardiac Cath: PCI: CT Surgery: Holter monitor: EPS: PPM: CXR: Chest CT Scan: Medical Necessity - Tobacco Use Smoking Status: Current every day smoker Tobacco Use: Chew Assessment/Plan 1. Chest pain with abnormal stress test * Patient underwent cardiac catheterization which demonstrated essentially normal coronary arteries. At this juncture I would suggest discharge the patient for outpatient follow-up. * * Thank you for allowing me to participate in the care of your patient. Please don't hesitate to call if any issues arise
--- NOTE | 2018-12-08 08:44 | CL.D_ITS ---
Patient Name: NABEEL IBARRA Study Date: 12/08/2018 Performing: Alfredito Tamayo MD Ht: 70 inches 178 cm : 1975 Wt: 359.8 lbs 163 kg Age: 43 Gender: male BSA: 2.68 PROCEDURE(S) PERFORMED [id number]-AHW/COR/LV CLINICAL PROFILE AND INDICATIONS Indications: Suspected CAD Heart Failure: None Stress/Imaging Date: 12/06/2018Stress Test with SPECT MPI: Positive Low Risk CAD Presentations: Symptom unlikely to be ischemic. CONCLUSIONS Normal coronary arteries Normal LV size, wall motion,and systolic function RECOMMENDATIONS Medical therapy DESCRIPTION OF PROCEDURE The patient arrived to the procedure lab. The risks and benefits of the procedure as well as a full d escription of our services here and current unavailability of surgical backup were fully explained to the patient and/or their significant other prior to the catheterization. The Timeout was completed, verifying the correct patient and procedure. The patient's procedural site was prepped and draped in the usual fashion. Local anesthetic was given subcutaneously to right radial region with Lidocaine 2% . Using a modified Seldinger technique, arterial access was obtained via the right radial artery, a 6 Fr sheath was inserted. Left Coronary Artery selective angiography was performed in multiple views u sing a 5 Fr. 4.0 [place] catheter. Right Coronary Artery selective angiography was then performed in mu ltiple views using a 5 Fr. 4.0 [place] catheter. Left Ventriculography was performed in MILLER projection using a 5 Fr. Pig[place] catheter. LV to AO pullback pressures were then recorded.The arterial sheath was pulled and a TR Band was applied for hemostasis CORONARY ANGIOGRAPHY DOMINANCE: Right Dominant LEFT HEART ASSESSMENT Left Ventricular Ejection Fraction: by LV Gram 60 % Normal Left Ventricular systolic function Normal Left Ventricular systolic function LEFT MAIN: Angiographically normal LEFT ANTERIOR DECENDING ARTERY: Angiographically normal CIRCUMFLEX ARTERY: Angiographically normal RIGHT CORONARY ARTERY: Angiographically normal COMPLICATIONS No Complications PROCEDURE MEDICATIONS Fentanyl 50 mcg IV Versed 1 mg IV Versed 1 mg IV Oxygen: 2 L/min via nasal cannula Heparin diluted in 23cc Heparinized saline. Patient given 10cc IA of this solution. 12/08/2018 07:32:3 0 Verapamil 2.5mg, Ntg 100mcgs, 2000 units of Heparin diluted in 23cc Heparinized saline. Patient give n 10cc IA of this solution. 12/08/2018 07:32:30 SUMMARY OF HEMODYNAMIC DATA Time AIR REST ECG 07:13:31 AO 105/81 (89) SA 07:35:41 LV 109/3, 10 07:43:38 LV 94/4, 10 07:43:44 LV 115/-5, 7 07:44:35 LV 114/-5, 7 07:44:41 LVp 120/0, 9 07:44:44 AOp 115/71 (90) 07:44:49 Signed By Alfredito Tamayo MD On 12/08/2018 08:43:37 Alfredito Tamayo MD
--- NOTE | 2018-12-08 10:59 | PCM.CONS.PUL ---
Reason for Consult Date of Consultation: 12/08/18 Reason for Consultation: Suspected CITLALLI History of Present Illness: The patient is a 43-year-old male, with a history as outlined below, who initially presented to the emergency department on December 06 with complaints of chest pain. The patient was subsequently evaluated by cardiology and underwent a cardiac catheterization, which demonstrated essentially normal coronary arteries. Medical management was recommended. The patient does have a history of smokeless tobacco dependency. His , who is present at the bedside, does admit that the patient not only audibly snores when sleeping, but also becomes apneic at times throughout the night. The patient does report that he sleeps on average 6 to 7 hours per night. He does endorse the presence of daytime fatigue/hypersomnolence. He does report falling asleep easily with mundane tasks like watching TV. The patient has never undergone a diagnostic PSG previously. An overnight oximetry study was completed last evening which did reveal significant oxygen desaturation with sleeping. Past Medical History Medical History: Medical History (Last Updated 12/06/18 @ 07:17 by Rajinder Rdz MD) Morbid obesity E66.01 Allergies aspirin Allergy (Verified 12/06/18 01:59) Hives Home Medications: Ambulatory Orders Medication Instructions Recorded Celecoxib 200 mg PO DAILY 04/26/17 traMADol [Ultram] 50 - 100 mg PO Q8H PRN PRN #0 04/27/17 Surgical History: herniorrhaphy, - - Two back surgery; and two right ankle surgery. Lives: With Family Smoking Status: Current every day smoker Tobacco Use: Chew Alcohol: None - *Family History Maternal History Items: - - Patient do not know. Paternal History Items: Heart Disease, - - Leukemia Review of Systems Constitutional: Denies: Chills, Fever, Weight Change HEENT: Denies: Head Aches, Sinus Congestion, Sinus Drainage Cardiovascular: Reports: Chest Pain Respiratory: Denies: Cough, Shortness of breath at rest, Sputum production Gastrointestinal: Denies: Abdominal Pain, Nausea, Vomiting Genitourinary: Denies: Dysuria Musculoskeletal: Denies: Joint Pain, Joint Tenderness Skin: Denies: Rash, Wounds Neurological: Denies: Numbness, Tingling, Focal weakness Psychiatric: Denies: Anxiety, Depression, Homicidal Ideations, Suicidal Ideations Hematologic/ Lymphatic: Denies: Easy Bruising, Easy Bleeding Patient Problems: Active and Suspected Problems (Last Updated 12/06/18 @ 07:17 by Rajinder Rdz MD) Chest pain at rest (Acute) Objective: The patient's most recent lab work, culture data and imaging studies have all been personally reviewed. - Physical Exam General: Alert, Oriented x3, Cooperative, No apparent distress HEENT: Atraumatic, PERRLA, Normocephalic Oral: No Gingival or Mucosal Lesions/ Ulcerations Neck: Supple, No Nodes, Trachea Midline, - - Large neck circumference with redundant soft tissue Lungs: No rhonchi, No wheeze, No rales, Diminished Cardiovascular: Regular rate, Regular Rhythm, Normal S1, Normal S2, No murmurs Abdomen: Bowel Sounds Present, Soft, Non Tender, Obese Extremities: No clubbing, No cyanosis, No edema Skin: No breakdown Musculoskeletal: No Tenderness to Palpation of Joints or Extremities, No Muscle Wasting Lymphatic: No Cervical, Supraclavicular, or Inguinal Adenopathy Neurological: Cranial nerves II-XII grossly intact, Neuro grossly intact Psych/Mental Status: Alert and oriented to time, place, person, mood and affect Vital Signs Temp Pulse Resp BP Pulse Ox 97.8 F 74 18 126/84 H 93 12/08/18 09:00 12/08/18 09:30 12/08/18 09:30 12/08/18 09:30 12/08/18 10:52 Oxygen Flow Rate (L/min) 80 Oxygen Delivery Method Room Air Weight: 358 lb 14.601 oz Body Mass Index (BMI) 51.3 Intake and Output for Last 24 Hours 12/06/18 12/07/18 12/08/18 23:59 23:59 23:59 Intake Total 1440 / 1440 710 / 710 Balance 1440 / 1440 710 / 710 Laboratory Tests Past 24 Hrs 12/07/18 12/08/18 12/08/18 23:45 04:32 04:32 WBC 10.8 RBC 4.78 Hgb 14.9 Hct 43.0 MCV 90.0 MCH 31.2 MCHC 34.7 RDW 12.1 RDW Differential 39.6 Plt Count 245 MPV 11.1 PT 12.7 INR 1.0 APTT 32.3 Sodium Potassium Chloride Carbon Dioxide Anion Gap BUN Creatinine Estim Creat Clear Calc Est GFR (MDRD) Af Amer Est GFR (MDRD) Non-Af BUN/Creatinine Ratio Glucose Calcium Urine Color Yellow Urine Clarity Clear Urine pH 6.0 Ur Specific [place] 1.020 Urine Protein Negative Urine Glucose (UA) Normal Urine Ketones Negative Urine Occult Blood 10 H Urine Nitrite Negative Urine Bilirubin Negative Urine Urobilinogen Normal Ur Leukocyte Esterase Negative Urine RBC 0 SEEN Urine WBC 0 SEEN Ur Squamous Epith Cells 0 SEEN Urine Bacteria 0 SEEN Urine Mucus 0 SEEN 12/08/18 04:32 WBC RBC Hgb Hct MCV MCH MCHC RDW RDW Differential Plt Count MPV PT INR APTT Sodium 141 Potassium 4.1 Chloride 108 H Carbon Dioxide 26.0 Anion Gap 7 BUN 18 Creatinine 1.21 Estim Creat Clear Calc 81.28 Est GFR (MDRD) Af Amer 84 Est GFR (MDRD) Non-Af 69 BUN/Creatinine Ratio 14.9 Glucose 94 Calcium 9.0 Urine Color Urine Clarity Urine pH Ur Specific [place] Urine Protein Urine Glucose (UA) Urine Ketones Urine Occult Blood Urine Nitrite Urine Bilirubin Urine Urobilinogen Ur Leukocyte Esterase Urine RBC Urine WBC Ur Squamous Epith Cells Urine Bacteria Urine Mucus Clinical Impression(s) from Imaging Studies Chest X-Ray 12/06/18 02:12 IMPRESSION: 1. No acute cardiopulmonary disease. at 0253 Reported and signed by: Keo Oates MD Electronically Signed: Keo Oates at 2:52 EDT Tel , Service support , Stress Test Nuclear Medicine 12/06/18 05:55 IMPRESSION: 1. ABNORMAL REST-REGADENOSON STRESS 99m Tc SESTAMIBI MYOCARDIAL PERFUSION SPECT. A. Pharmacologic induced left ventricular ischemia involving the inferior, basal inferior, mid to basal anterior segments. B. Preservation of resting left ventricular myocardial systolic function. (Jodi et al, J Nucl Med 37: 105P, 1996). C. If false positive stress cardiac perfusion SPECT results are a diagnostic consideration, correlation with a stress echocardiogram may be of benefit for further evaluation in the setting of questionable cardiac perfusion SPECT imaging results. (Suman et al, Eur J Heart 24: 789, 2003). Electronically Signed: Kenrick Ontiveros DO at 13:55 EDT Tel , Service support , Assessment/Plan All Active Problems (Last Updated 12/06/18 @ 07:17 by Rajinder Rdz MD) Acute back pain (Acute) Injury of spinal nerve root at S1 level (Acute) Chest pain at rest (Acute) RECOMMENDATIONS: 1. Outpatient diagnostic polysomnogram. 2. 2 L/min of supplemental oxygen nightly until sleep study completion. 3. Outpatient pulmonary follow-up upon completion of sleep study. IMPRESSIONS: 1. Suspected obstructive sleep apnea The patient's symptoms along with his pulse oximetry study are certainly concerning for underlying obstructive sleep apnea. The patient undoubtedly should be referred to the sleep lab to undergo a polysomnogram. He is agreeable to doing so. Orders will be placed accordingly. In the interim, would recommend that the patient be placed on 2 L/min of supplemental oxygen nightly, until the completion of his polysomnogram. The patient should follow-up in the pulmonary medicine clinic upon completion of his sleep study. This note was generated with [employer] dictation software. It may contain incorrect words, spelling, and punctuation that were not noted in checking the note before signing. Code Visit Inpatient E&M: 54408 Init Hosp L2
--- NOTE | 2018-12-08 11:05 | DCINST_ITS ---
- Discharge Diagnoses Current Active Problems: Current Active and Chronic Problems (Last Updated 12/06/18 @ 07:17 by Rajinder Rdz MD) Chest pain at rest (Acute) You will use the following diet at home:: Cardiac - <3000 mg sodium daily Your food should be the consistency of: Regular Your liquids should be the consistency of: Regular/Thin Discharge Activity: Return to Normal Activity Allergies/Adverse Reactions: Allergies aspirin Allergy (Verified 12/06/18 01:59) Hives Medications to take at Discharge Celecoxib 200 mg PO DAILY 04/26/17 traMADol [Ultram] 50 - 100 mg PO Q8H PRN PRN #0 04/27/17 Primary Care Physician: Mau Encarnacion MD [Primary Care Provider] - Please follow up with your Primary Care Physician in: 1-2 weeks Test Results: Test results from this visit will be discussed in further detail at your follow- up appointment, if applicable. Please Follow Up With: Chaim Meier DO When: 2 weeks Proposed Discharge Date: 12/08/18
--- NOTE | 2018-12-08 11:53 | CASEMGMT ---
Addendum entered by Kristal Gallagher 12/08/18 12:55: F2F faxed to [facility] [place] at this time. Bhavin ODELL CM Original Note: Pt had overnight trending pulse ox and is going to need to have a sleep study set up but does qualify for home oxygen at bedtime until sleep study completed. This RN CM to room to speak with pt/ at this time and pt/ state [employer] is good for referral at this time. Referral faxed to [facility] [place] at this time and F2F will be faxed once obtained. Pt/ voice no further questions/concerns/needs at this time. Bhavin ODELL CM
--- NOTE | 2018-12-08 12:24 | PCM.DC.SUM ---
<Damien Lr - Last Filed: 12/08/18 12:24> Discharge Date and Diagnosis Date of Admission: 12/06/18 Date of Discharge: 12/08/18 - Primary Discharge Diagnosis Chest pain - musculoskeletal Suspected CITLALLI Morbid obesity Nicotine abuse Osteoarthritis Mild htn Hospital Course and Treatment Imaging Results: RAD/Chest 1 View (Portable) IMPRESSION: 1. No acute cardiopulmonary disease. at 0253 Reported and signed by: Keo Oates MD NM/Nuclear Stress Test - Chemical IMPRESSION: 1. ABNORMAL REST-REGADENOSON STRESS 99m Tc SESTAMIBI MYOCARDIAL PERFUSION SPECT. A. Pharmacologic induced left ventricular ischemia involving the inferior, basal inferior, mid to basal anterior segments. B. Preservation of resting left ventricular myocardial systolic function. (Jodi et al, J Nucl Med 37: 105P, 1995). C. If false positive stress cardiac perfusion SPECT results are a diagnostic consideration, correlation with a stress echocardiogram may be of benefit for further evaluation in the setting of questionable cardiac perfusion SPECT imaging results. (Suman et al, Eur J Heart 24: 789, 2003). Left Heart Cath: CONCLUSIONS Normal coronary arteries Normal LV size, wall motion,and systolic function RECOMMENDATIONS Medical therapy ECHO: Results pending. Consults: Cardiology - [facility] Pulmonology - [place] Operations: None Procedures: 2-D Echocardiogram, Cardiac catheterization, Stress test Summary of Care Provided: Hospital course: The patient is a 43 year old M with pmhx morbid obesity, nicotine abuse, osteoarthritis, who presented the emergency room with complaints of several weeks of intermittent chest pain. This was described as substernal, heaviness, with pain in his jaw and left arm. He has risk factors for coronary disease including morbid obesity, hypertension in the ER, nicotine abuse, and a positive family history of heart disease. In the ER chest x-ray was negative, troponin was negative, and EKG was negative. He was admitted to the PCU and placed on telemetry. He had no events overnight on telemetry. Troponin was negative x3. He underwent a stress test which was positive. Cardiology was consulted. Patient underwent a heart catheterization that was essentially normal. The patient and his also expressed concern about difficulty sleeping, witnessed apneic events at night, hypersomnolence, snoring. An overnight pulse oximeter was done which revealed desaturation to 61%, and multiple apneic events. Pulmonology was consulted. They recommended a outpatient sleep study. With his overnight hypoxia he will need to go home with 2 L/min nasal cannula supplemental oxygen until he is able to have a sleep study and have further recommendations from there. The patient was discharged home in stable condition. He will need to follow-up with his PCP in 1 to 2 weeks, and pulmonology in 2 weeks. This patient was seen by Damien Lr PA-C under the supervision of Doctor Ping. [] - Physical Exam Vital Signs Temp Pulse Resp BP Pulse Ox 97.8 F 74 18 126/84 H 93 12/08/18 09:00 12/08/18 09:30 12/08/18 09:30 12/08/18 09:30 12/08/18 10:52 Oxygen Flow Rate (L/min) 80 Oxygen Delivery Method Room Air Weight: 358 lb 14.601 oz Body Mass Index (BMI) 51.3 Intake and Output for Last 24 Hours 12/06/18 12/07/18 12/08/18 23:59 23:59 23:59 Intake Total 1440 / 1440 710 / 710 Balance 1440 / 1440 710 / 710 Laboratory Tests Past 24 Hrs 12/07/18 12/08/18 12/08/18 23:45 04:32 04:32 WBC 10.8 RBC 4.78 Hgb 14.9 Hct 43.0 MCV 90.0 MCH 31.2 MCHC 34.7 RDW 12.1 RDW Differential 39.6 Plt Count 245 MPV 11.1 PT 12.7 INR 1.0 APTT 32.3 Sodium Potassium Chloride Carbon Dioxide Anion Gap BUN Creatinine Estim Creat Clear Calc Est GFR (MDRD) Af Amer Est GFR (MDRD) Non-Af BUN/Creatinine Ratio Glucose Calcium Urine Color Yellow Urine Clarity Clear Urine pH 6.0 Ur Specific [place] 1.020 Urine Protein Negative Urine Glucose (UA) Normal Urine Ketones Negative Urine Occult Blood 10 H Urine Nitrite Negative Urine Bilirubin Negative Urine Urobilinogen Normal Ur Leukocyte Esterase Negative Urine RBC 0 SEEN Urine WBC 0 SEEN Ur Squamous Epith Cells 0 SEEN Urine Bacteria 0 SEEN Urine Mucus 0 SEEN 12/08/18 04:32 WBC RBC Hgb Hct MCV MCH MCHC RDW RDW Differential Plt Count MPV PT INR APTT Sodium 141 Potassium 4.1 Chloride 108 H Carbon Dioxide 26.0 Anion Gap 7 BUN 18 Creatinine 1.21 Estim Creat Clear Calc 81.28 Est GFR (MDRD) Af Amer 84 Est GFR (MDRD) Non-Af 69 BUN/Creatinine Ratio 14.9 Glucose 94 Calcium 9.0 Urine Color Urine Clarity Urine pH Ur Specific [place] Urine Protein Urine Glucose (UA) Urine Ketones Urine Occult Blood Urine Nitrite Urine Bilirubin Urine Urobilinogen Ur Leukocyte Esterase Urine RBC Urine WBC Ur Squamous Epith Cells Urine Bacteria Urine Mucus Discharge Diet: Low fat/ Low Cholesterol, - - <3000 mg sodium daily Discharge Activity: Return to Normal Activity Home Medications: Medications to take at Discharge Celecoxib 200 mg PO DAILY 04/26/17 traMADol [Ultram] 50 - 100 mg PO Q8H PRN PRN #0 04/27/17 Primary Care Physician: Mau Encarnacion MD [Primary Care Provider] - Please follow up with your Primary Care Physician in: 1-2 weeks Please Follow Up With: Chaim Meier DO When: 2 weeks Disposition: Home Minutes spent on discharge:: 35 Patient Condition:: Stable Medical Necessity - Tobacco Use Smoking Status: Current every day smoker Tobacco Use: Chew Meaningful Use Info Meaningful Use Diagnoses (Choose all that apply): None applicable <Luann Feng - Last Filed: 12/08/18 13:18> Hospital Course and Treatment Summary of Care Provided: Patient seen by Damien Lr PA-C under my supervision The patient is a 43 year old M was admitted through the ED on 12/06/2018 with a complaint of chest pain. Troponins x3 were negative. He had a positive stress test which showed pharmacologic induced left ventricular ischemia involving the inferior, basal inferior and mid to basal anterior segments. Cardiology was consulted and he had a cardiac cath on 12/08/2018 which showed clean coronaries. His lipid panel was also within normal limits. Of note, patient was noted to desaturate during the night and had an overnight pulse oximeter which showed desaturation to 61% and multiple apneic events. Pulmonology was consulted and they recommended an outpatient sleep study. He was also discharged home with 2 L of nasal cannula supplemental oxygen for overnight hypoxia until he is able to have the sleep study. He was discharged home on 12/08/2018 and is follow-up with his primary care doctor and pulmonology in 1 to 2 weeks. Patient seen and examined prior to discharge. He had no complaints and felt well. Review of systems otherwise negative. Labs and vitals reviewed. Home medication reviewed and reconciled. o/e: Vital Signs Height 5 ft 10.08 in Weight: 358 lb 14.601 oz Weight in Pounds 358.9 lbs Pulse Ox 93 Temperature 97.8 F Pulse Rate 74 Respiratory Rate 18 Blood Pressure 126/84 Blood Pressure Position Semi-Fowlers General: Alert, Oriented x3, Cooperative, morbidly obese HEENT: Atraumatic, PERRLA, EOMI, Normocephalic Neck: Supple, No JVD, Negative Carotid Bruits Lungs: Clear to auscultation, Normal air movement Cardiovascular: Regular rate, No murmurs Abdomen: Bowel Sounds Present, Soft, Non Tender, Obese Extremities: No edema, Capillary Refill Less than 3 Seconds Skin: No rashes, No breakdown Musculoskeletal: No Tenderness to Palpation of Joints or Extremities Neurological: Cranial nerves II-XII grossly intact Psych/Mental Status: Normal Affect, Appropriate, Alert and oriented to time, place, person, mood and affect Plan as above. Rest of management as per Damien Lr PA-C's note, which I have reviewed and endorsed. [] - Physical Exam Vital Signs Temp Pulse Resp BP Pulse Ox 97.8 F 74 18 126/84 H 93 12/08/18 09:00 12/08/18 09:30 12/08/18 09:30 12/08/18 09:30 12/08/18 10:52 Oxygen Flow Rate (L/min) 80 Oxygen Delivery Method Room Air Weight: 358 lb 14.601 oz Body Mass Index (BMI) 51.3 Intake and Output for Last 24 Hours 12/06/18 12/07/18 12/08/18 23:59 23:59 23:59 Intake Total 1440 / 1440 710 / 710 Balance 1440 / 1440 710 / 710 Laboratory Tests Past 24 Hrs 12/07/18 12/08/18 12/08/18 23:45 04:32 04:32 WBC 10.8 RBC 4.78 Hgb 14.9 Hct 43.0 MCV 90.0 MCH 31.2 MCHC 34.7 RDW 12.1 RDW Differential 39.6 Plt Count 245 MPV 11.1 PT 12.7 INR 1.0 APTT 32.3 Sodium Potassium Chloride Carbon Dioxide Anion Gap BUN Creatinine Estim Creat Clear Calc Est GFR (MDRD) Af Amer Est GFR (MDRD) Non-Af BUN/Creatinine Ratio Glucose Calcium Urine Color Yellow Urine Clarity Clear Urine pH 6.0 Ur Specific [place] 1.020 Urine Protein Negative Urine Glucose (UA) Normal Urine Ketones Negative Urine Occult Blood 10 H Urine Nitrite Negative Urine Bilirubin Negative Urine Urobilinogen Normal Ur Leukocyte Esterase Negative Urine RBC 0 SEEN Urine WBC 0 SEEN Ur Squamous Epith Cells 0 SEEN Urine Bacteria 0 SEEN Urine Mucus 0 SEEN 12/08/18 04:32 WBC RBC Hgb Hct MCV MCH MCHC RDW RDW Differential Plt Count MPV PT INR APTT Sodium 141 Potassium 4.1 Chloride 108 H Carbon Dioxide 26.0 Anion Gap 7 BUN 18 Creatinine 1.21 Estim Creat Clear Calc 81.28 Est GFR (MDRD) Af Amer 84 Est GFR (MDRD) Non-Af 69 BUN/Creatinine Ratio 14.9 Glucose 94 Calcium 9.0 Urine Color Urine Clarity Urine pH Ur Specific [place] Urine Protein Urine Glucose (UA) Urine Ketones Urine Occult Blood Urine Nitrite Urine Bilirubin Urine Urobilinogen Ur Leukocyte Esterase Urine RBC Urine WBC Ur Squamous Epith Cells Urine Bacteria Urine Mucus Code Visit OBSV E&M: 74110 Observation care discharge
--- NOTE | 2018-12-08 16:23 | STRESSREP ---
Stress Test Report Pharmacologic myocardial perfusion stress test. 43-year-old male with a history of chest pain. Resting EKG demonstrates normal sinus rhythm with a rate of 79 bpm. Stress protocol. 0.4 mg of regadenoson was infused per usual protocol followed by rapid intravenous saline flush injection. The resting heart rate susana from 79 bpm her maximum [address]-T wave changes were noted with no criteria for ischemia. The resting blood pressure was 124/72 with a final blood pressure 118/74. Myocardial perfusion protocol. Technetium 99m sestamibi was injected at rest. 0.4 mg of regadenoson was infused. At peak infusion technetium 99m sestamibi was injected. Stress and rest images were reconstructed and compared in the short axis vertical and horizontal long axis. Gated images were also obtained per Myocardial perfusion scan will be reported under separate cover. Conclusion: Pharmacologic myocardial perfusion stress test with no EKG changes for ischemia. Nuclear images dictated separately by radiologist.
== END 2018-12-08 11:05 | disposition home or self-care (01) ==
LOC: ED 03:29 → PCU 04:32
PROVIDERS: Internal Medicine Cardiovascular Disease; Physician Assistant; Admitting Provider Hospitalist; Emergency Provider Emergency Medicine; Family Provider Family Medicine; PCP Family Medicine; Visit Provider Student in an Organized Health Care Education/Training Program
DX: R07.89 Other chest pain (principal); R06.02 Shortness of breath; F17.220 Nicotine dependence, chewing tobacco, uncomplicated; R42 Dizziness and giddiness; E66.01 Morbid (severe) obesity due to excess calories; M79.602 Pain in left arm; R20.0 Anesthesia of skin; G25.81 Restless legs syndrome; G89.29 Other chronic pain; M13.872 Other specified arthritis, left ankle and foot; R94.39 Abnormal result of other cardiovascular function study; I10 Essential (primary) hypertension; Z79.899 Other long term (current) drug therapy; Z82.49 Family history of ischemic heart disease and other diseases of the circulatory system; Z68.43 Body mass index [BMI] 50.0-59.9, adult; Z71.3 Dietary counseling and surveillance; G47.10 Hypersomnia, unspecified
CPT/HCPCS: 36415; 71045; 78452; 80048; 80061; 81001; 82962; 83036; 84484; 85025; 85027; 85610; 85730; 93005; 93017; 93306; 93458; 94762; 96372; 99152; 99153; 99218; 99285; A9500; J7040; Q9957; A4216; C1769; C1894; C8929; G0378; J2785; Q9967

== ENCOUNTER → 2018-12-10 20:00 | Outpatient (CLI) | payer OTHER, SELFPAY ==
[2018-12-06 04:23] VITALS: BMI 51.3
== END ==
PROVIDERS: Family Provider Family Medicine; PCP Family Medicine; Visit Provider Internal Medicine Critical Care Medicine
DX: G47.10 Hypersomnia, unspecified (principal)
CPT/HCPCS: 95811

== ENCOUNTER → 2020-05-26 06:39 | Outpatient (CLI) | payer OTHER, SELFPAY ==
[2019-03-26 08:48] VITALS: BMI 53.1
[2020-05-26 07:43] LABS: Creatinine, Serum 1.23 mg/dL (0.70-1.30); EST Glomerular Filtration Rate 68 mL/min (>60); Est Glom Filt Rate - Afr Amer 82 mL/min (>60)
== END ==
PROVIDERS: PCP Family Medicine
DX: M19.171 Post-traumatic osteoarthritis, right ankle and foot (principal); Z79.1 Long term (current) use of non-steroidal anti-inflammatories (NSAID)
CPT/HCPCS: 36415; 82565

== ENCOUNTER → 2020-09-23 15:15 | Outpatient (CLI) | payer OTHER, SELFPAY ==
[2020-09-23 14:02] VITALS: BMI 57.1
[2020-09-23 15:37] LABS: Mucous, Urine 0 SEEN /hpf (<or=2+); Red Blood Cells-Urine 0 SEEN /hpf (0-5); Squamous Epithelial Cells - UA 0 SEEN /hpf (0-5)
[2020-09-23 16:00] LABS: Color, Urine Yellow (Yellow); Glucose, Dipstick Normal (Normal); Ketone-Dipstick Negative (Negative); Leukocyte Esterase-Dipstick 500 /ul (Negative); Nitrite-Dipstick Negative (Negative); Occult Blood-Urine 10 /ul (Negative); Protein-Dipstick Negative (Negative); Urine Bilirubin Dipstick Negative (Negative); Urine Clarity Sl. Cloudy (Clear); Urine Urobilinogen Normal (Normal)
[2020-09-23 16:24] LABS: Bacteria RARE /hpf (None Seen); White Blood Cells 5-10 SEEN /hpf (0-5)
== END ==
PROVIDERS: PCP Family Medicine; Referring Provider Physician Assistant Surgical; Visit Provider Physician Assistant Surgical
DX: R39.15 Urgency of urination (principal)
CPT/HCPCS: 81001; 87086; 87088; 87186

== ENCOUNTER → 2024-03-20 | Outpatient (CLI) | payer OTHER, SELFPAY ==
[2024-03-20 17:56] LABS: Cholesterol 188 mg/dL (200); High Density Lipoprotein 48 mg/dL; PSA,Total - Annual Screen 0.76 ng/mL (0.00-4.00); Triglycerides 173 mg/dL; Very Low Density Lipoprotein 35 mg/dL (5-40)
[2024-03-20 18:00] LABS: Hemoglobin A1c 5.5 % (3.8-5.6)
== END | disposition home or self-care (01) ==
PROVIDERS: PCP Family Medicine; Referring Provider Family Medicine; Visit Provider Family Medicine
DX: Z13.220 Encounter for screening for lipoid disorders (principal); Z12.5 Encounter for screening for malignant neoplasm of prostate; Z13.1 Encounter for screening for diabetes mellitus
CPT/HCPCS: 36415; 80061; 83036; 84153; G0103

== ENCOUNTER 2024-11-16 10:22 | Emergency (ER) | payer OTHER, SELFPAY ==
[2024-11-16 10:23] VITALS: BP 174/99; PULSE 74; RESP 16; TEMP 36.8; O2SAT 98; BMI 53.0
--- NOTE | 2024-11-16 10:26 | ED.RN ---
No stroke alert called per ED MD
--- NOTE | 2024-11-16 11:13 | CT_ITS ---
PROCEDURE: CTA HEAD AND NECK W/ CONTRAST 11/16/2024 REASON FOR EXAM: LEFT VISUAL DISTURBANCE TECHNIQUE: CTA imaging of the head and neck from the aortic arch to the skull vertex with out constrast and with intravenous contrast. Coronal and Sagittal reconstruction series were provided. 3D post processing with reformations, Maximum intensity projection (MIPs) Volume rendering and Shaded surface rendering was provided. CONTRAST: Isovue 370 VOLUME: 100 mL One or more dose reduction techniques were used (e.g., Automated exposure control, adjustment of the mA and/or kV according to patient size, use of iterative reconstruction technique). RADIATION DOSE SUMMARY: CTDlvol: 25 mGy DLP: 856.3 mGycm COMPARISON: Prior unenhanced CT scan of the head done earlier in the day. FINDINGS: Aortic Arch: Normal size and branching pattern. No significant atherosclerotic plaque. Brachiocephalic and Subclavians: Unremarkable RIGHT Carotid: Right CCA: Unremarkable. Right ICA: Unremarkable. Right ECA: Unremarkable. LEFT Carotid: Left CCA: Unremarkable. Left ICA: Unremarkable. Left ECA: Unremarkable. Vertebrals: Codominant. Arise from the subclavians. Both vertebrals form the basilar. RIGHT Vertebral: Unremarkable. LEFT Vertebral: Unremarkable. Anatomy: Knik of Miranda anatomy is normal. Aneurysm or avm: No intracranial aneurysms or large vascular malformations are identified. Anterior cerebral arteries: Unremarkable: Middle cerebral arteries: Unremarkable. Basilar artery: Unremarkable. Posterior cerebral arteries: Unremarkable. Other major branches of the posterior circulation: Unremarkable. Major venous structures: Unremarkable. Other findings: Neck: No lymphadenopathy. Lungs: Bones: CT/CTA Head AND Neck W/ Contrast IMPRESSION: Unremarkable examination. Reading Location: [facility]-
--- NOTE | 2024-11-16 11:13 | CT_ITS ---
PROCEDURE: BRAIN/HEAD WITHOUT CONTRAST 11/16/2024 REASON FOR EXAM: VISION DISTURBANCE TECHNIQUE: Head CT without intravenous contrast. Coronal and Sagittal reconstruction series were provided. One or more dose reduction techniques were used (e.g., Automated exposure control, adjustment of the mA and/or kV according to patient size, use of iterative reconstruction technique. RADIATION DOSE SUMMARY: CTDlvol: 44.99 mGy DLP: 880.47 mGycm COMPARISON: None FINDINGS: Brain: Normal CSF Spaces: Normal Sinuses/Mastoids: Clear at visualized levels Bones: Unremarkable CT/Brain/Head without Contrast IMPRESSION: NO ACUTE FINDINGS Reading Location: [place] [id number]
--- NOTE | 2024-11-16 11:14 | EX.ED.VIS.EY ---
HPI <WALT Diallo - Last Filed: 11/16/24 13:31> History of Present Illness Chief Complaint: Vision Prob Narrative Narrative: 49-year-old male with PMH of obesity states he was driving to work this morning when he developed small blurry spots or floaters in his right eye. He then developed this in his left eye and the temporal portion of his left eye had a black obstruction which lasted a few minutes and then resolved on its own. His vision now feels back to normal. He wears contacts. He denies headache or ocular pain. PFSH <WALT Diallo - Last Filed: 11/16/24 13:31> PFSH Medical History (Updated 11/16/24 @ 13:15 by WALT Diallo) Chronic back pain Morbid obesity Home Medications ?Medication ?Instructions ?Recorded ?Last Taken ?Type acetaminophen 325 mg capsule 325 mg PO ONCE PRN 09/23/20 Unknown History (Tylenol) celecoxib 200 mg capsule mg PO DAILY 08/25/24 Unknown History tramadol 50 mg tablet mg PO 08/25/24 Unknown History Allergy/AdvReac Type Severity Reaction Status Date / Time aspirin Allergy Hives Verified 11/16/24 10:25 Family History Father Heart disease Myocardial infarction Cancer Surgical History History of back surgery History of ankle surgery History of left heart catheterization (12/08/18) Social History (Updated 11/16/24 @ 11:35 by Tracey Sanabria) household members: spouse housing: house Smoking Status: Never smoker alcohol intake: never ROS <WALT Diallo - Last Filed: 11/16/24 13:31> ROS ED ROS Narrative Constitutional: Negative for fever, chills, malaise. Eyes: Positive for visual change. GI: Negative for nausea, vomiting Neuro: Negative for headache. EXAM <WALT Diallo - Last Filed: 11/16/24 13:31> Physical Exam Narrative Exam Narrative: CONST: Patient sitting in no acute distress. EYES: Normal inspection. PERRL, EOMI. No major abnormalities on funduscopic exam. NECK: Normal inspection. RESP: No respiratory distress, CTAB. CVS: Regular rate and rhythm, no murmur, no gallop. SKIN: Color normal, no rash, warm, dry, intact. EXTREMITIES: Normal appearance, no pedal edema. NEURO: Alert and answering questions appropriately. PSYCH: Normal affect. Const Vital Signs: 11/16/24 10:23 Temperature 98.2 F Temperature Source Oral Pulse Rate 74 Respiratory Rate 16 Blood Pressure 174/99 H Blood Pressure Mean 124 Pulse Ox 98 Oxygen Delivery Method Room Air [facility] <WALT Diallo - Last Filed: 11/16/24 13:31> [facility] Narrative Medical decision making narrative: Differential includes but not limited to, retinal detachment, intraocular process, amaurosis fugax/CVA 49-year-old male presents with visual disturbance. He initially had blurry floaters in the right eye which then occurred in the left eye. He subsequently developed a black curtain like vision loss in the left temporal field which has resolved. He is back to baseline. His vital signs are stable and his exam is unremarkable. Basic labs are obtained and are unremarkable. CT and CTA of the head and neck show no acute abnormalities. I consulted ophthalmology and Dr. Verma will see him in the office at 3 PM this afternoon. He was discharged in stable condition. I have personally performed a face to face assessment of the patient and have reviewed the LEONARD Note. I performed a substantive portion of the visit including all aspects of the following. My helton findings include: History is [patient presents to the emergency department complaint of vision loss. Patient states initially had some symptoms that started in his right eye while driving where he would have just patchy loss of vision. Subsequently then symptoms developed in his left eye where he had patchy vision loss but not complete vision loss in that eye. While waiting in the waiting room in the ED he had like a curtain come over the left eye lasted several seconds and then it resolved. His vision is currently totally resolved. He has never had symptoms like that before. He denies headache. Denies recent illness. He did not have any difficulty with speech. He did not have any focal weakness or paresthesias. Patient currently on tirzepatide and did have a dose today.] Exam is [HEENT-PERRLA, EOMI. Cranial nerves II through XII grossly intact. TMs clear. Mucous membranes moist. No adenopathy. Cardiovascular-regular rate and rhythm without murmur or ectopy Lungs-clear to auscultation, chest wall stable without crepitus or subcu emphysema Abdomen-normoactive bowel sounds, soft, nontender, no rebound or rigidity, no peritoneal signs. Extremities-intact ?4, normal range of motion, normal pulses, atraumatic] Medical Decison Making [ ] Other additions or changes: [None] <Dr. Jose L Gan, DO - Last Filed: 11/16/24 13:34> [facility] Narrative Medical decision making narrative: Differential includes but not limited to, retinal detachment, intraocular process, amaurosis fugax/CVA 49-year-old male presents with visual disturbance. He initially had blurry floaters in the right eye which then occurred in the left eye. He subsequently developed a black curtain like vision loss in the left temporal field which has resolved. He is back to baseline. His vital signs are stable and his exam is unremarkable. Basic labs are obtained and are unremarkable. CT and CTA of the head and neck show no acute abnormalities. I consulted ophthalmology and Dr. Verma will see him in the office at 3 PM this afternoon. He was discharged in stable condition. I have personally performed a face to face assessment of the patient and have reviewed the LEONARD Note. I performed a substantive portion of the visit including all aspects of the following. My helton findings include: History is [patient presents to the emergency department complaint of vision loss. Patient states initially had some symptoms that started in his right eye while driving where he would have just patchy loss of vision. Subsequently then symptoms developed in his left eye where he had patchy vision loss but not complete vision loss in that eye. While waiting in the waiting room in the ED he had like a curtain come over the left eye lasted several seconds and then it resolved. His vision is currently totally resolved. He has never had symptoms like that before. He denies headache. Denies recent illness. He did not have any difficulty with speech. He did not have any focal weakness or paresthesias. Patient currently on tirzepatide and did have a dose today.] Exam is [HEENT-PERRLA, EOMI. Cranial nerves II through XII grossly intact. TMs clear. Mucous membranes moist. No adenopathy. Cardiovascular-regular rate and rhythm without murmur or ectopy Lungs-clear to auscultation, chest wall stable without crepitus or subcu emphysema Abdomen-normoactive bowel sounds, soft, nontender, no rebound or rigidity, no peritoneal signs. Extremities-intact ?4, normal range of motion, normal pulses, atraumatic] Medical Decison Making [patient presents with odd symptoms of vision change. Currently resolved. CBC with differential was normal. Chemistries unremarkable. CTA head and neck were unremarkable. We discussed case with ophthalmology who will see him this afternoon at 3 PM. Patient discharged to home stable condition. Etiology of symptoms unclear. Low suspicion for TIA as patient's symptoms were bilateral.] Other additions or changes: [None] Lab Data Attestation: I reviewed the patient's lab results. Discharge Plan Triage Chief Complaint: Vision Prob ED Midlevel Provider: Lupis Vu ED Provider: Jose L Gan Dx/Rx/DC Orders Clinical Impression: Visual disturbance Instructions: Understanding Vision Problems Prescriptions: No Action acetaminophen [Tylenol] 325 mg capsule 325 mg PO ONCE PRN celecoxib 200 mg capsule PO DAILY tramadol 50 mg tablet PO Primary Care Provider: Navdeep Encarnacion Referrals: cheve [Other] Navdeep Encarnacion MD [Primary Care Provider] - Devendra Verma MD [Med Staff - Active Staff] - Activity Restrictions/Additional Instructions: You have an appointment at the ophthalmology office at [address] Verma at the address above. Please arrive 10 minutes early. Print Language: Burkinan Disposition Disposition: Home, Self Care Discharge Date/Time: 11/16/24 13:30
[2024-11-16 11:32] LABS: Absolute Lymphocyte Count 1.76 X10^3/uL (0.83-4.51); Absolute Neutrophil Count 4.1 X10^3/uL (2.0-7.7); Basophil# 0.07 X10^3/uL; Eosinophil# 0.17 X10^3/uL; Eosinophils% 2.5 % (0-5); Hematocrit 42.1 % (40-54); Hemoglobin 14.6 g/dL (13.0-16.5); Lymphocyte # 1.76 X10^3/ul (0.83-4.51); Lymphocyte % 26.1 % (19-41); Mean Corp Hgb Conc 34.7 g/dL (32-36); Mean Corpuscular Volume 92.3 fL (80-94); Mean Platelet Vol. 11.6 fl (6.2-12.0); Monocyte# 0.57 X10^3/uL; Monocyte% 8.5 % (0-10); NRBC Flagged by Analyzer 0 % (0-5); Neutrophil # 4.12 X10^3/uL (2.7-7.7); Neutrophil % 61.2 % (47-70); Platelet Count 223 K/mm3 (150-450); RBC Distribution Width CV 11.9 % (11.6-14.6); RBC Distribution Width SD 40.4 fl (35.1-43.9); Red Blood Count 4.56 M/mm3 (4.6-6.2); White Blood Count 6.7 K/mm3 (4.4-11.0)
[2024-11-16 11:34] VITALS: BP 138/78; PULSE 81; RESP 16; O2SAT 98
[2024-11-16 12:00] VITALS: BP 128/78; PULSE 70; RESP 18; O2SAT 98
[2024-11-16 12:14] LABS: Anion Gap 10 (5-15); BUN 14 mg/dL (4-19); BUN/Creat Ratio 12.6 RATIO (10-20); Calcium,Total 9.2 mg/dL (7.6-11.0); Carbon Dioxide 25.9 mmol/L (21.0-32.0); Chloride 104 mmol/L (98-108); EST Glomerular Filtration Rate 82 (>60); Estimated Creatinine Clearance 123.58 ml/min (50-250); Glucose 85 mg/dL (70-99); Potassium 4.1 mmol/L (3.3-5.1); Sodium Level 139 mmol/L (133-145)
[2024-11-16 13:00] VITALS: BP 141/81
[2024-11-16 13:29] VITALS: BP 141/81; PULSE 78; RESP 16; TEMP 36.6; O2SAT 99
== END 2024-11-16 13:30 | disposition home or self-care (01) ==
PROVIDERS: Physician Assistant; Emergency Provider Emergency Medicine; PCP Family Medicine; Visit Provider Emergency Medicine
DX: H53.9 Unspecified visual disturbance (principal); E66.01 Morbid (severe) obesity due to excess calories
CPT/HCPCS: 70450; 70496; 70498; 80048; 85025; 99283; Q9967; A4216

== ENCOUNTER → 2024-12-04 | Outpatient (CLI) | payer OTHER, SELFPAY ==
--- NOTE | 2024-12-04 07:39 | ECHOCS_ITS ---
Reason For Study Reason For Study: Amaurosis Fugax Procedure This was a 2D Doppler, Color Flow transthoracic echocardiogram. The study was technically difficult. Contrast injection was performed. Exam performed in department. Left Ventricle Normal LV size. Left ventricular systolic function is normal. The left ventricular ejection fraction is 60 %. No regional wall motion abnormalities noted. Right Ventricle Normal RV size. Normal systolic function. Atria Normal left atrium. Normal right atrium. Bubble contrast study is negative for PFO/ASD. Mitral Valve Normal mitral valve. Tricuspid Valve Normal tricuspid valve. Aortic Valve Trisinus/trileaflet aortic valve. Pulmonic Valve Normal pulmonic valve. Great Vessels Normal aortic root. The pulmonary artery is normal size. Inferior vena cava collapse with respiration. Pericardium/Pleural No pericardial effusion. Medication 22 gauge I.V. with prn adaptor inserted into right arm. Diluted definity 2ml given slow IV push to enhance endocardial definition. Performed a rapid injection of agitated mix of 9 cc saline and 1cc air to assess for atrial septal defect. MMode/2D Measurements & Calculations LVIDd: 5.7 cm IVSd: 1.2 cm Ao root diam: 3.6 cm LVIDs: 4.2 cm LVPWd: 1.5 cm RVDd: 3.8 cm FS: 26.5 % LAV(MOD-bp): 53.8 ml LVAd ap4: 38.1 cm2 SV(MOD-sp4): 77.7 ml LAV(MOD-bp) Indexed: 20.6 ml/m2 LVLd ap4: 8.5 cm SI(MOD-sp4): 29.7 ml/m2 LAV(MOD-sp2): 52.4 ml EDV(MOD-sp4): 140.2 ml LAV(MOD-sp4): 47.1 ml EDV(sp4-el): 145.9 ml LVAs ap4: 23.2 cm2 LVLs ap4: 7.0 cm ESV(MOD-sp4): 62.6 ml ESV(sp4-el): 65.6 ml EF(MOD-sp4): 55.4 % EF(sp4-el): 55.0 % SV(sp4-el): 80.3 ml LA A4 area: 18.0 cm2 LA dimension(2D): 4.4 cm RA A4 area: 17.7 cm2 TAPSE: 2.4 cm Time Measurements MV dec time: 0.24 sec Doppler Measurements & Calculations MV E max jose: 98.8 cm/sec Lat Peak E' Jose: 11.0 cm/sec Med Peak E' Jose: 9.5 cm/sec MV A max jose: 93.3 cm/sec E/E' lat: 9.0 E/E' med: 10.4 MV E/A: 1.1 MV V2 max: 99.7 cm/sec MV P1/2t max jose: 99.7 cm/sec Ao V2 max: 136.9 cm/sec MV max P.0 mmHg MV P1/2t: 78.3 msec Ao max P.5 mmHg MV V2 mean: 57.3 cm/sec MV dec slope: 372.7 cm/sec2 Ao V2 mean: 97.3 cm/sec MV mean P.5 mmHg MVA(P1/2t): 2.8 cm2 Ao mean P.3 mmHg MV V2 VTI: 36.0 cm Ao V2 VTI: 31.3 cm AV (velocity ratio): 0.85 LV V1 max: 126.3 cm/sec PA V2 max: 103.0 cm/sec LV V1 max P.4 mmHg LV V1 mean P.3 mmHg LV V1 mean: 83.1 cm/sec LV V1 VTI: 26.7 cm ECHO/Echo Complete W/ Contrast Interpretation Summary Normal LV size. Left ventricular systolic function is normal. The left ventricular ejection fraction is 60 %. Contrast injection was performed. Ordering Physician: Devendra Verma Referring Physician: Devendra Verma Performed By: Edy Gerber RCS
== END | disposition home or self-care (01) ==
LOC: CVS 07:38
PROVIDERS: PCP Family Medicine; Referring Provider Ophthalmology; Visit Provider Ophthalmology
DX: G45.3 Amaurosis fugax (principal)
CPT/HCPCS: 93306; Q9957; A4216; C8929

== ENCOUNTER → 2025-05-26 | Outpatient (CLI) | payer OTHER, SELFPAY ==
--- OUTSIDE RECORDS SUMMARY | 2025-05-26 11:54 | XMS RPT_ITS | CCD ---
Author Organization [facility] Care Team Providers Care Plumber Cub Name Role Phone Jewels Encarnacion MD Primary Care Provider Shashank PARMAR, Dr. Sethi Primary Care Provider Shashank PARMAR, Dr. Sethi Referring Provider Shala Ontiveros Attending Provider Dr. Jose L Gan DO Emergency Provider Jewels Encarnacion MD Primary Care Provider JEWELS ENCARNACION Primary Care UnavailAMAN Newsome Referring Unavailable AMAN STEVENS Attending Unavailable JEWELS ENCARNACION Primary Care UnavailAMAN Newsome Attending Unavailable AMAN STEVENS Referring Unavailable JEWELS ENCARNACION Primary Care UnavailDevendra Morales Attending Unavailable Devendra Verma Referring Unavailable Jewels Encarnacion Primary Care Unavailable Jewels Encarnacion Primary Care Unavailable Jose L Gan Attending Unavailable Rylie Cabrera Attending Unavailable Jewels Encarnacion Primary Care Unavailable Jewels Encarnacion Primary Care Unavailable Jewels Encarnacion Referring Unavailable Shala Foster NP Attending Unavailable Alfredito Tamayo Attending [facility]available [facility] Unavailable Allergies Allergy Classification Reported Allergen(s) Allergy Type Date of Onset Reaction(s) Facility (20 sources) Aspirin; Translations: [ASPIRIN] Drug Allergy 4 Swelling, Anaphylaxis [facility] (1 source) Aspirin Drug Allergy 5 [facility] Repository Medications Current Medications Medication Drug Class(es) Dates Sig (Normalized) Sig (Original) acetaminophen 325 mg oral capsule (1 source) Start: 02-19-2021 take 1 capsule by mouth once as needed Acetaminophen (Tylenol) 325 mg capsule Active 325 mg PO ONCE as needed September 23, 2020 1:00am Completed/Discontinued Medications Medication Drug Class(es) Dates Sig (Normalized) Sig (Original) amoxicillin 875 mg / clavulanate 125 mg oral tablet (3 sources) Penicillin-class Antibacterial Start: 04-25-2024 End: 05-02-2024 Amoxicillin-Pot Clavulanate 875-125 mg tablet Discontinued 1 {tbl} PO TWICE A DAY 14 April 25, 2024 12:00am May 01, 2024 12:00am May 02, 2024 12:12am Start: 10-21-2022 End: 10-28-2022 Amoxicillin-Pot Clavulanate 875-125 mg tablet Discontinued 1 {tbl} PO TWICE A DAY 14 October 21, 2022 12:00am October 27, 2022 12:00am October 28, 2022 12:04am Start: 11-17-2021 End: 11-27-2021 Amoxicillin-Pot Clavulanate 875-125 mg tablet Discontinued 1 {tbl} PO Q12H 20 November 17, 2021 12:00am November 26, 2021 12:00am November 27, 2021 12:03am celecoxib 200 mg oral capsule (20 sources) Nonsteroidal Anti-inflammatory Drug Start: 06-26-2021 End: 01-04-2025 take 1 capsule by mouth once daily celecoxib (CELEBREX) 200 mg capsule Take 1 capsule by mouth once daily. 30 capsule 3 02/21/2024 01/04/2025 Discontinued Start: 04-26-2017 End: 09-23-2020 take 1 capsule by mouth once daily Celecoxib 200 MG capsule Discontinued 200 mg PO DAILY April 26, 2017 12:00am September 23, 2020 3:04pm Comment on above: Take 1 capsule by mo [facility] once daily. ciprofloxacin 500 mg oral tablet (1 source) Quinolone Antimicrobial Start: 09-23-19 End: 09-30-19 take 1 tablet by mouth every twelve hours Ciprofloxacin Hcl (Cipro) 500 mg tablet Discontinued 500 mg PO Q12H 14 September 23, 2020 1:00am September 29, 2020 1:00am September 30, 2020 1:03am doxycycline monohydrate 100 mg oral tablet (1 source) Tetracycline-class Drug Start: 05-07-20 End: 05-17-20 take 1 tablet by mouth twice daily Doxycycline Monohydrate 100 mg tablet Discontinued 100 mg PO TWICE A DAY 24 05May 07, 2024 12:00am May 16, 2024 12:00am May 17, 2024 12:08am ibuprofen 100 mg oral tablet (6 sources) Nonsteroidal Anti-inflammatory Drug Start: 09-23-19 End: 08-25-19 take 2 tablets by mouth every six hours Ibuprofen 100 mg tablet Discontinued 200 mg PO EVERY 6 HOURS September 23, 2020 1:00am August 25, 2024 4:15pm End: 03-16-2022 ibuprofen (MOTRIN ORAL) Take by mouth. 0 03/16/2022 Discontinued (Changing Therapy/Dosage Form) ibuprofen (MOTRI N ORAL) Take by mouth. 0 Active Comment on above: Take by mouth. methylPREDNISolone 4 mg oral tablet (1 source) Corticosteroid Start: End: take 1 tablet by mouth once Methylprednisolone (Medrol (Maximiliano)) 4 mg tablets,dose pack Discontinued 4 mg PO per package directions 23 01May 07, 2024 12:00am May 12, 2024 12:00am May 13, 2024 12:08am phenazopyridine hydrochloride 100 mg oral tablet (1 source) Start: End: take 1 tablet by mouth three times daily at mealtime for pain Phenazopyridine (Pyridium) 100 mg tablet Discontinued 100 mg PO THREE TIMES A DAY as needed for pain 7 0 September 23, 2020 1:00am April 25, 2024 8:48am administer with a full glass of water after each meal traMADol hydrochloride 50 mg oral tablet (20 sources) Opioid Agonist Start: End: take 1 tablet by mouth every eight hours as needed for pain traMADol (ULTRAM) 50 mg tablet Indications: Post-traumatic arthritis of ankle, right , Chronic pain of right ankle Take 1 tablet by mouth every 8 hours as needed for pain for up to 7 days. 21 tablet 11/23/2024 01/04/2025 Discontinued Start: 07-26-2023 End: 01-01-2024 take 1 tablet by mouth every eight hours as needed for pain traMADol (ULTRAM) 50 mg tablet Indications: Post-traumatic arthritis of ankle, right , Chronic pain of right ankle Take 1 tablet by mouth every 8 hours as needed for pain for up to 7 days. 21 tablet 0 12/25/2023 Active Start: 05-27-2023 take 1 tablet by margaret th every eight hours as needed for pain traMADol (ULTRAM) 50 mg tablet Indications: Post-traumatic arthritis of ankle, right , Chronic pain of right ankle Take 1 tablet by mouth every 8 hours as needed for pain for up to 7 days. 21 tablet 0 05/27/2023 Active Start: 06-12-2022 End: 02-26-2023 take 1 tablet by mouth every eight hours as needed for pain traMADol (ULTRAM) 50 mg tablet Indications: Post-traumatic arthritis of ankle, right , Chronic pain of right ankle Take 1 tablet by mouth every 8 hours as needed for pain for up to 7 days. 21 tablet 0 02/19/2023 Active Start: 08-16-2021 End: 02-22-2022 take 1 tablet by mouth every eight hours as needed for pain traMADol (ULTRAM) 50 mg tablet Indications: Post-traumatic arthritis of ankle, right , Chronic pain of right ankle Take 1 tablet by mouth every 8 hours as needed for pain for up to 7 days. 21 tablet 0 02/15/2022 Active Start: 04-26-2017 End: 09-23-2020 take 50-100 mg by mouth every eight hours as needed for pain Tramadol 50 MG tablet Discontinued 50 - 100 mg PO EVERY 8 HOURS NEEDED as needed for Pain 0 April 27, 2017 1:22pm September 23, 2020 3:05pm Comment on above: Take 1 tablet by margaret th every 8 hours as needed for pain for up to 7 days. Problems Active Problems Problem Classification Problem Date Documented Date Episodic/Chronic Abdominal pain (1 source) Left flank pain; Translations: [Unspecified abdominal pain] 09-23-2020 Episodic Joint disorders and dislocations; trauma-related (20 sources) Disorder of articular cartilage of ankle; Translations: [Other articular cartilage disorders, unspecified ankle] Onset: 11-06-2011 11-06-2011 Chronic Malaise and fatigue (1 source) Other fatigue; Translations: [Other fatigue] Onset: 05-14-2025 Episodic Nonspecific chest pain (1 source) Chest pain at rest; Translations: [Chest pain, unspecified] 12-06-2018 Episodic Osteoarthritis (20 sources) Arthritis of right ankle due to trauma; Translations: [Post-traumatic osteoarthritis, right ankle and foot] Onset: 03-15-2011 Chronic Other aftercare (1 source) Patient encounter status; Translations: [[facility] (current) use of non-steroidal anti-inflammatories (NSAID)] 03-25-2023 Episodic Other injuries and conditions due to external causes (1 source) Sacral nerve root injury - S1 ; Translations: [Injury of nerve root of sacral spine, initial encounter] 12-08-2018 Episodic Other non-traumatic joint disorders (17 sources) Chronic ankle pain; Translations: [Pain in right ankle and joints of right foot] Episodic Other nutritional; endocrine; and metabolic disorders (2 sources) Morbid obesity; Translations: [Morbid (severe) obesity due to excess calories] 08-25-2024 Chronic Other nutritional; endocrine; and metabolic disorders (1 source) Body mass index 40+ - severely obese; Translations: [Body mass index (BMI) 50.0-59.9, adult] 12-23-2018 Chronic Other screening for suspected conditions (not mental disorders or infectious disease) (3 sources) Thallium stress test abnormal; Translations: [Abnormal result of other cardiovascular function study] Onset: 05-14-2025 12-08-2018 Episodic Other upper respiratory infections (1 source) Sinusitis; Translations: [Chronic sinusitis, unspecified] 04-25-2024 Chronic Other upper respiratory infections (1 source) Acute sinusitis; Translations: [Acute sinusitis, unspecified] 11-17-2021 Episodic Residual codes; unclassified (2 sources) Obstructive sleep apnea syndrome; Translations: [Obstructive sleep apnea (adult) (pediatric)] 08-25-2024 Chronic Comment on above: BiPAP 19/15 cmH2O wi th a back-up rate of 10 Spondylosis; intervertebral disc disorders; other back problems (1 source) Backache; Translations: [Dorsalgia, unspecified] 12-08-2018 Episodic Transient cerebral ischemia (1 source) Amaurosis fugax; Translations: [Amaurosis fugax] Onset: 12-07-2024 Chronic Urinary tract infections (1 source) Urinary tract infectious disease; Translations: [Urinary tract infection, site not specified] 09-23-2020 Episodic Past or Other Problems Problem Classification Problem Date Documented Da te Episodic/Chronic Blindness and vision defects (2 sources) Visual disturbance; Translations: [Unspecified visual disturbance] Onset: 11-20-2024 11-16-2024 Episodic Fracture of lower limb (20 sources) Fracture of ankle; Translations: [Other fracture of right lower leg, initial encounter for closed fracture] Onset: 10-30-2010 10-30-2010 Episodic Results Test Name Value Interpretation Reference Range Facility XR Ankle - right AP and Late ral and obliqueon 12-25-2024 IMPRESSION: Degenerative changes. No acute abnormality Supervisor Inspection Department: [facility] Transcribe Date/Time: Dec 25 2024 7:12A Dictated by : MARIA ELENA BASS MD This examination was interpreted and the report reviewed and electronically signed by: MARIA ELENA BASS MD on Dec 25 2024 7:14AM [facility] * * *Final Report* * * DATE OF EXAM: Dec 23 2024 8:33AM FUNMILAYO 5297 - XR ANKLE 3V AP/LAT/OBL RT / PROCEDURE REASON: M19.265-[id number] tic arthritis of ankle, right * * * * Physician Interpretation * * * * PROCEDURE: Right ankle INDICATION: Post-traumatic arthritis of ankle, right .Follow-up for right ankle TECHNIQUE: XR ANKLE 3V AP/LAT/OBL RT COMPARISON: 12/20/2023 FINDINGS: Remote, healed distal fibular fracture with intact fixation hardware. Mild tibiotalar joint osteoarthrosis again noted. Well corticated ossification distal to the medial malleolus. No acute fracture or osseous lesion. Significant talonavicular joint osteoarthrosis. [facility] Provider, [facility] - 12/25/2024 * * *Final Report* * * DATE OF EXAM: Dec 23 2024 8:33AM FUNMILAYO 5297 - XR ANKLE 3V AP/LAT/OBL RT / PROCEDURE REASON: M19.007-Gero-[id number] tic arthritis of ankle, right * * * * Physician Interpretation * * * * PROCEDURE: Right ankle INDICATION: Post-traumatic arthritis of ankle, right .Follow-up for right ankle TECHNIQUE: XR ANKLE 3V AP/LAT/OBL RT COMPARISON: 12/20/2023 FINDINGS: Remote, healed distal fibular fracture with intact fixation hardware. Mild tibiotalar joint osteoarthrosis again noted. Well corticated ossification distal to the medial malleolus. No acute fracture or osseous lesion. Significant talonavicular joint osteoarthrosis. IMPRESSION IMPRESSION: Degenerative changes. No acute abnormality Supervisor Inspection Department: [facility] Transcribe Date/Time: Dec 25 2024 7:12A Dictated by : MARIA ELENA BASS MD This examination was interpreted and the report reviewed and electronically signed by: MARIA ELENA BASS MD on Dec 25 2024 7:14AM EST [facility] XR Ankle - right AP and Late ral and obliqueOrdered By: [facility] Provider on 12-25-2024 [facility] CNOVon 12-23-2024 CNOV Office Visit (ORMDNA) ---- NABEEL PITTS ([id number]) 1975 M Date Time Provider Department 12/23/24 8:00 AM AMAN STEVENS During your visit today, we recorded the following information about you: Aman Stevens MD 01/18/2025 9:54 AM Signed REASON FOR VISIT / CHIEF COMPLAINT CHIEF COMPLAINT: Nabeel Pitts is a 44 year old male who presents today for follow up office visit. Patient presents with: Right Ankle - Follow Up, Pain HISTORY OF PRESENT ILLNESS (HPI) PAIN EVALUATION 12/21/20242035 Pain Level: 5 Pain Location: Ankle-Right Description: Aching;Sharp;Throbb ing Duration Amount of Time: 6 Duration Units: Hours Frequency: Intermittent Intervention/Comfor t measure: Medication;Repositi on;Relaxation;Cold; Heat;Pillow support F/u right ankle arthritis s/p fracture dislocation of ankle . He reports that over the last month or so he is had an increase in his ankle pain feels it may be related to activity level and it may be related to weather changes. He has gone from taking his Celebrex intermittently to taking it on a daily basis. Any new injury, since being seen last: No Is there any overall improvement in your condition? No Does anything make it worse?: Yes, wt bearing Does anything make it better?: Yes, rest REVIEW OF SYMPTOMS: Integumentary: Any recent skin changes or rashes? No Neurologic: Any numbness or tingling in the LOCAL AREA? No Endocrine: Any diagnosis of diabetes? No Hematologic: Any recent bleeding episodes? No ALLERGIES ALLERGIES Allergen Reactions Aspirin Swelling, Anaphylaxis Took with percocet PAST MEDICAL HISTORY History reviewed. No pertinent past medical history. History reviewed. No pertinent surgical history. PHYSICAL EXAMINATION Vitals: There were no vitals taken for this visit. Body Habitus:no acute distress and alert and oriented Orientation: Normal: Oriented to person, place and time Psych: normal Sensation: sensation to light touch is grossly normal bilaterally Skin: Color, texture, turgor normal. No rashes or lesions Swelling: swelling noted of the ankle Stance: normal cervical posture, shoulder alignment, and no joint deformities or swelling noted Right Ankle Exam Tenderness The patient is experiencing tenderness in the medial malleolus (Patient is tender to palpation over the anterior joint line.). Swelling: mild Range of Motion Dorsiflexion: 10 Plantar flexion: 20 Eversion: 5 Inversion: 5 Muscle Strength Dorsiflexion: 4/5 Plantar flexion: 5/5 Anterior tibial: 4/5 Posterior tibial: 4/5 Gastrocsoleus: 5/5 Peroneal muscle: 4/5 Tests Anterior drawer: negative Varus tilt: negative Other Erythema: absent Scars: present Sensation: normal Pulse: present Imaging : X-rays of the ankle today show the ankle joint has maintained as previously noted alignment. There is still some mild narrowing of the tibial talar joint but it does not appear to have progressed since his last visit The fibular fracture remains healed and the hardware is in good position. 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 This plan was recommended he continue with Celebrex as needed for pain. If his symptoms progress we could consider a corticosteroid injection although these have had variable results in the past Plan: 1. Continue Celebrex daily and tramadol . He is using this sparingly. 2. Continue independent range of motion exercises and weightbearing as tolerated 3. Follow-up 6 months. He will need a BUN/creatinine at the time of his next Celebrex refill request Aman Stevens M.D. Department of Orthopaedic Surgery [facility] Referring Provider: AMAN STEVENS [[id number]] Allergies As of Date: 12/23/2024 Noted Allergy Reaction ASPIRIN 03/31/2014 7 - Swelling 10 - Anaphylaxis Comments: Took with percocet Date Reviewed: 12/23/2024 Reviewed by: Misty Andrade MA - Fully Assessed Reason for Visit: Follow Up [171] Pain [78] Primary Visit Diagnosis:Post-trau matic arthritis of ankle, right [M19.171] Order(s):XR ANKLE GENERAL 3V AP/LAT/OBL RIGHT [[id number]] Order #: [id number] FUTURE Prescriptions as of 01/18/2025 - traMADol (ULTRAM) 50 mg tablet Take 1 tablet by mouth every 8 hours as needed for pain for up to 7 days. - celecoxib (CELEBREX) 200 mg capsule Take 1 capsule by mouth once daily. 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 Follow-up and Disposition History for Encoun (more content not included)... Normal [facility] XR ANKLE 3V AP/LAT/OBL RTon 12-23-2024 XR ANKLE 3V AP/LAT/OBL RT * * *Final Rep ort* * * DATE OF EXAM: Dec 23 2024 8:33AM FUNMILAYO 5297 - XR ANKLE 3V AP/LAT/OBL RT / PROCEDURE REASON: M19.454-Rsdm-bbcuvf tic arthritis of ankle, right * * * * Physician Interpretation * * * * PROCEDURE: Right ankle INDICATION: Post-traumatic arthritis of ankle, right .Follow-up for right ankle TECHNIQUE: XR ANKLE 3V AP/LAT/OBL RT COMPARISON: 12/20/2023 FINDINGS: Remote, healed distal fibular fracture with intact fixation hardware. Mild tibiotalar joint osteoarthrosis again noted. Well corticated ossification distal to the medial malleolus. No acute fracture or osseous lesion. Significant talonavicular joint osteoarthrosis. IMPRESSION: Degenerative changes. No acute abnormality Supervisor Inspection Department: JACQUELYN Transcribe Date/Time: Dec 25 2024 7:12A Dictated by : MARIA ELENA BASS MD This examination was interpreted and the report reviewed and electronically signed by: MARIA ELENA BASS MD on Dec 25 2024 7:14AM EST [id number] ACN Normal [facility] XR Ankle - right AP and Late ral and obliqueon 12-23-2024 Radiology Study observation (narrative) [facility] Echo Complete W/ Contraston 12-04-2024 Echo Complete W/ Contrast [facility] [address] [place] [address] Echo Complete W/ Contrast 12/04/24 0803 MR#: [id number] Acct: [id number] Name: NABEEL PITTS Rep #: [id number] : 1975 49 From: Alfredito Tamayo MD Attending Dr: Dr. Devendra Verma MD Status: REG CLI Ordering Dr: Devendra Verma MD Date: 12/04/24 Location: [facility] Sex: M C Admitted: Reason For Study Reason For Study: Amaurosis Fugax Procedure This was a 2D Doppler, Color Flow transthoracic echocardiogram. The study was technically difficult. Contrast injection was performed. Exam performed in department. Left Ventricle Normal LV size. Left ventricular systolic function is normal. The left ventricular ejection fraction is 60 %. No regional wall motion abnormalities noted. Right Ventricle Normal RV size. Normal systolic function. Atria Normal left atrium. Normal right atrium. Bubble contrast study is negative for PFO/ASD. Mitral Valve Normal mitral valve. Tricuspid Valve Normal tricuspid valve. Aortic Valve Trisinus/trileaflet aortic valve. Pulmonic Valve Normal pulmonic valve. Great Vessels Normal aortic root. The pulmonary artery is normal size. Inferior vena cava collapse with respiration. Pericardium/Pleural No pericardial effusion. Medication 22 gauge I.V. with prn adaptor inserted into right arm. Diluted definity 2ml given slow IV push to enhance endocardial definition. Performed a rapid injection of agitated mix of 9 cc saline and 1cc air to assess for atrial septal defect. MMode/2D Measurements Calculations LVIDd: 5.7 cm IVSd: 1.2 cm Ao root diam: 3.6 cm LVIDs: 4.2 cm LVPWd: 1.5 cm RVDd: 3.8 cm FS: 26.5 % __ LAV(MOD-bp): 53.8 ml LVAd ap4: 38.1 cm2 SV(MOD-sp4): 77.7 ml LAV(MOD-bp) Indexed: 20.6 ml/m2 LVLd ap4: 8.5 cm SI(MOD-sp4): 29.7 ml/m2 LAV(MOD-sp2): 52.4 ml EDV(MOD-sp4): 140.2 ml LAV(MOD-sp4): 47.1 ml EDV(sp4-el): 145.9 ml LVAs ap4: 23.2 cm2 LVLs ap4: 7.0 cm ESV(MOD-sp4): 62.6 ml ESV(sp4-el): 65.6 ml EF(MOD-sp4): 55.4 % EF(sp4-el): 55.0 % __ SV(sp4-el): 80.3 ml LA A4 area: 18.0 cm2 LA dimension(2D): 4.4 cm __ RA A4 area: 17.7 cm2 TAPSE: 2.4 cm Time Measurements MV dec time: 0.24 sec Doppler Measurements Calculations MV E max jose: 98.8 cm/sec Lat Peak E' Jose: 11.0 cm/sec Med Peak E' Jose: 9.5 cm/sec MV A max jose: 93.3 cm/sec E/E' lat: 9.0 E/E' med: 10.4 MV E/A: 1.1 __ MV V2 max: 99.7 cm/sec MV P1/2t max jose: 99.7 cm/sec Ao V2 max: 136.9 cm/sec MV max P.0 mmHg MV P1/2t: 78.3 msec Ao max P.5 mmHg MV V2 mean: 57.3 cm/sec MV dec slope: 372.7 cm/sec2 Ao V2 mean: 97.3 cm/sec MV mean P.5 mmHg MVA(P1/2t): 2.8 cm2 Ao mean P.3 mmHg MV V2 VTI: 36.0 cm Ao V2 VTI: 31.3 cm AV (velocity ratio): 0.85 __ LV V1 max: 126.3 cm/sec PA V2 max: 103.0 cm/sec LV V1 max P.4 mmHg LV V1 mean P.3 mmHg LV V1 mean: 83.1 cm/sec LV V1 VTI: 26.7 cm ECHO/Echo Complete W/ Contrast Interpretation Summary Normal LV size. Left ventricular systolic function is normal. The left ventricular ejection fraction is 60 %. Contrast injection was performed. __ Ordering Physician: Devendra Verma Referring Physician: Devendra Verma Performed By: Edy Gerber, [facility] 12/04/24938 Date Alfredito Tamayo MD CC: Dr. Jewels Encarnacion MD; Dr. Devendra Verma MD Date Dictated: 12/04/24802 Date Transcribed: 12/04/24938 Supervisor Inspection Department: Signed Normal [facility] Absolute neutrophil countOrd ered By: Lupis Vu on 11-16-2024 Neutrophils (Bld) [#/Vol] 4.1 10*3/uL 2.0-7.7 [facility] Anion gap in Serum or Plasma Ordered By: Lupis Vu on 11-16-2024 Anion gap [Moles/Vol] 10 mmol/L 12-17 [facility] BUN/creatinine ratioOrdered By: Lupis Vu on 11-16-2024 Urea nitrogen/Creatinine [Mass ratio] 12.6 mg/mg - [facility] Basic Metabolic Profile (BMP )on 11-16-2024 BUN/CRE 12.6 RATIO Normal 10-20 [facility] Comment on above: Performed By: #### L 100.0100, L500.2500 #### [facility] [address] [place], [address] Calcium [Mass/Vol] 9.2 mg/dL Normal 7.6-11.0 [facility] Comment on above: Performed By: #### L 100.0100, L500.2500 #### [facility] [address] [place], [address] Chloride [Moles/Vol] 104 mmol/L Normal 98-[address] [facility] Comment on above: Performed By: #### L 100.0100, L500.2500 #### [facility] [address] [place], [address] CO2 [Moles/Vol] 25.9 mmol/L Normal 21.0-32.0 [facility] Comment on above: Performed By: #### L 100.0100, L500.2500 #### [facility] [address] [place], [address] Creatinine [Mass/Vol] 1.10 mg/dL Normal 0.70-1.20 [facility] Comment on above: Performed By: #### L 100.0100, L500.2500 #### [facility] [address] [place], [address] ECRCL 123.58 ml/min Normal 50-250 [facility] Comment on above: Performed By: #### L 100.0100, L500.2500 #### [facility] [address] [place], [address] GAP 10 Normal 5-15 [facility] Comment on above: Performed By: #### L 100.0100, L500.2500 #### [facility] [address] [place], [address] GFR/1.73 sq M.predicted among non-blacks MDRD (S/P/Bld) [Vol rate/Area] 82 mL/min/{1.73_m2} Normal >60 [facility] Comment on above: Result Comment: mL/m in/1.73m2 CKD-EPI Creatinine Equation (2020) Performed By: #### L 100.0100, L500.2500 #### [facility] [address] [place], [address] Glucose [Mass/Vol] 85 mg/dL Normal 70-99 [facility] Comment on above: Performed By: #### L 100.0100, L500.2500 #### [facility] [facility] [address] [place], [address] Potassium [Moles/Vol] 4.1 mmol/L Normal 3.3-5.1 [facility] Comment on above: Performed By: #### L 100.0100, L500.2500 #### [facility] [address] [place], [address] Sodium [Moles/Vol] 139 mmol/L Normal 133-145 [facility] Comment on above: Performed By: #### L 100.0100, L500.2500 #### [facility] [address] [place], [address] Urea nitrogen [Mass/Vol] 14 mg/dL Normal 4-19 [facility] Comment on above: Performed By: #### L 100.0100, L500.2500 #### [facility] [address] [place], [address] Basophil percentageOrdered B y: Lupis Vu on 11-16-2024 Basophils/100 WBC (Bld) 1.0 % 0-1 [facility] Brain/Head without Contrasto n 11-16-2024 Brain/Head without Contrast [facility] Imaging Services [address] [place] [address] Brain/Head without Contrast MR#: [id number] Acct: [id number] Name: NABEEL PITTS Rep #: [id number] : 1975 M 49 From: Bam pichardo MD PCP: Dr. Jewels Encarnacion MD Status: REG ER Study: Brain/Head without Contrast Date of Exam: 11/03 11/27 Exam# [id number] Ordering Dr: Lupis Vu PROCEDURE: BRAIN/HEAD WITHOUT CONTRAST 11/16/2024 REASON FOR EXAM: VISION DISTURBANCE TECHNIQUE: Head CT without intravenous contrast. Coronal and Sagittal reconstruction series were provided. One or more dose reduction techniques were used (e.g., Automated exposure control, adjustment of the mA and/or kV according to patient size, use of iterative reconstruction technique. RADIATION DOSE SUMMARY: CTDlvol: 44.99 mGy DLP: 880.47 mGycm COMPARISON: None FINDINGS: Brain: Normal CSF Spaces: Normal Sinuses/Mastoids: Clear at visualized levels Bones: Unremarkable CT/Brain/Head without Contrast IMPRESSION: NO ACUTE FINDINGS Reading Location: [place] [address] CC: Dr. Jewels Encarnacion MD; WALT Diallo Supervisor Inspection Department: Signed Normal [facility] CBC W/Diff, Automatedon 11-03 Absolute Lymph 1.76 X10 3/uL Normal 0.83-4.51 [facility] Comment on above: Performed By: #### L 100.0100, L500.2500 #### [facility] [address] [place], [address] Absolute Neut 4.1 X10 3/uL Normal 2.0-7.7 [facility] Comment on above: Performed By: #### L 100.0100, L500.2500 #### [facility] [address] [place], [address] Basophils/100 WBC (Bld) 1.0 % Normal 0-1 [facility] Comment on above: Performed By: #### L 100.0100, L500.2500 #### [facility] [address] [place], [address] Eosinophils/100 WBC (Bld) 2.5 % Normal 0-5 [facility] Comment on above: Performed By: #### L 100.0100, L500.2500 #### [facility] [address] [place], [address] Erythrocyte distribution width (RBC) [Ratio] 11.9 % Normal 11.6-14.6 [facility] Comment on above: Performed By: #### L 100.0100, L500.2500 #### [facility] [address] [place], [address] Hematocrit (Bld) [Volume fraction] 42.1 % Normal 40-54 [facility] Comment on above: Performed By: #### L 100.0100, L500.2500 #### [facility] [address] [place], [address] Hemoglobin (Bld) [Mass/Vol] 14.6 g/dL Normal 13.0-16.5 [facility] Comment on above: Performed By: #### L 100.0100, L500.2500 #### [facility] [address] [place], [address] IG% 0.700 Normal 0.0-0.9 [facility] Comment on above: Result Comment: IG% - Immature Granulocytes (promyelocytes, myelocytes and metamyelocytes) > 1% indicates that a LEFT SHIFT is Present. Performed By: #### L 100.0100, L500.2500 #### [facility] [address] [place], [address] Lymphocytes/100 WBC (Bld) 26.1 % Normal 19-41 [facility] Comment on above: Performed By: #### L 100.0100, L500.2500 #### [facility] [address] [place], [address] MCH (RBC) [Entitic mass] 32.0 pg Normal 27.0-32.0 [facility] Comment on above: Performed By: #### L 100.0100, L500.2500 #### [facility] [address] [place], [address] MCHC (RBC) [Mass/Vol] 34.7 g/dL Normal 32-36 [facility] Comment on above: Performed By: #### L 100.0100, L500.2500 #### [facility] [address] [place], [address] MCV (RBC) [Entitic vol] 92.3 fL Normal 80-94 [facility] Comment on above: Performed By: #### L 100.0100, L500.2500 #### [facility] [address] [place], [address] Monocytes/100 WBC (Bld) 8.5 % Normal 0-10 [facility] Comment on above: Performed By: #### L 100.0100, L500.2500 #### [facility] [address] [place], [address] Neutrophils/100 WBC (Bld) 61.2 % Normal 47-70 [facility] Comment on above: Performed By: #### L 100.0100, L500.2500 #### [facility] [address] [place], [address] Nucleated RBC (Bld) [#/Vol] 0 10*3/uL Normal 0-5 [facility] Comment on above: Performed By: #### L 100.0100, L500.2500 #### [facility] [address] [place], [address] Platelet mean volume (Bld) [Entitic vol] 11.6 fL Normal 6.2-12.0 [facility] Comment on above: Performed By: #### L 100.0100, L500.2500 #### [facility] [address] [place], [address] Platelets (Bld) [#/Vol] 223 10*3/uL Normal 150-450 [facility] Comment on above: Performed By: #### L 100.0100, L500.2500 #### [facility] [address] [place], [address] RBC (Bld) [#/Vol] 4.56 10*6/uL Low 4.6-6.2 [facility] Comment on above: Performed By: #### L 100.0100, L500.2500 #### [facility] [address] [place], [address] RDW SD 40.4 fl Normal 35.1-43.9 [facility] Comment on above: Performed By: #### L 100.0100, L500.2500 #### [facility] [address] [place], [address] WBC (Bld) [#/Vol] 6.7 10*3/uL Normal 4.4-11.0 [facility] Comment on above: Performed By: #### L 100.0100, L500.2500 #### [facility] [address] [place], [address] CTA Head AND Neck W/ Contras ton 11-16-2024 CTA Head AND Neck W/ Contrast [facility] Imaging Services [address] [place] [address] CTA Head AND Neck W/ Contrast MR#: [id number] Acct: [id number] Name: NABEEL PITTS Rep #: [id number] : 1975 M 49 From: Bam pichardo MD PCP: Dr. Jewels Encarnacion MD Status: [facility] ER Study: CTA Head AND Neck W/ Contrast Date of Exam: Exam# [id number] Ordering Dr: Lupis Vu PROCEDURE: CTA HEAD AND NECK W/ CONTRAST 11/16/2024 REASON FOR EXAM: LEFT VISUAL DISTURBANCE TECHNIQUE: CTA imaging of the head and neck from the aortic arch to the skull vertex with out constrast and with intravenous contrast. Coronal and Sagittal reconstruction series were provided. 3D post processing with reformations, Maximum intensity projection (MIPs) Volume rendering and Shaded surface rendering was provided. CONTRAST: Isovue 370 VOLUME: 100 mL One or more dose reduction techniques were used (e.g., Automated exposure control, adjustment of the mA and/or kV according to patient size, use of iterative reconstruction technique). RADIATION DOSE SUMMARY: CTDlvol: 25 mGy DLP: 856.3 mGycm COMPARISON: Prior unenhanced CT scan of the head done earlier in the day. FINDINGS: Aortic Arch: Normal size and branching pattern. No significant atherosclerotic plaque. Brachiocephalic and Subclavians: Unremarkable RIGHT Carotid: Right CCA: Unremarkable. Right ICA: Unremarkable. Right ECA: Unremarkable. LEFT Carotid: Left CCA: Unremarkable. Left ICA: Unremarkable. Left ECA: Unremarkable. Vertebrals: Codominant. Arise from the subclavians. Both vertebrals form the basilar. RIGHT Vertebral: Unremarkable. LEFT Vertebral: Unremarkable. Anatomy: [place] anatomy is normal. Aneurysm or avm: No intracranial aneurysms or large vascular malformations are identified. Anterior cerebral arteries: Unremarkable: Middle cerebral arteries: Unremarkable. Basilar artery: Unremarkable. Posterior cerebral arteries: Unremarkable. Other major branches of the posterior circulation: Unremarkable. Major venous structures: Unremarkable. Other findings: Neck: No lymphadenopathy. Lungs: Bones: CT/CTA Head AND Neck W/ Contrast IMPRESSION: Unremarkable examination. Reading Location: [place] [address] CC: Dr. Jewels Encarnacion MD; WALT Diallo Supervisor Inspection Department: Signed Normal [facility] Carbon dioxide, total [Moles /volume] in Central venous bloodOrdered By: Lupis Vu on 11-16-2024 CO2 [Moles/Vol] 25.9 mmol/L 21.0-32.0 [facility] Chloride assayOrdered By: Marcela Vu on 11-16-2024 Chloride [Moles/Vol] 104 mmol/L 98-[address] [facility] Emergency Department Summary on 11-16-2024 Emergency Department Summary [facility] Medical Records Department [address] [place] [address] Emergency Department Summary 11/16/24 MR#: [id number] Acct: [id number] Name: NABEEL PITTS Rep #: [id number] : 1975 49 From: Jose L Gan DO PCP: Dr. Jewels Encarnacion MD Status:DEP ER Location: ED HPI History of Present Illness Chief Complaint: Vision Prob Narrative Narrative: 49-year-old male with PMH of obesity states he was driving to work this morning when he developed small blurry spots or floaters in his right eye. He then developed this in his left eye and the temporal portion of his left eye had a black obstruction which lasted a few minutes and then resolved on its own. His vision now feels back to normal. He wears contacts. He denies headache or ocular pain. [facility] Medical History (Updated 11/16/24 @ 13:15 by WALT Diallo) Chronic back pain Morbid obesity Home Medications ???Medication ???Instructions ???Recorded ???Last Taken ???Type acetaminophen 325 mg capsule 325 mg PO ONCE PRN 09/23/20 Unknow n History (Tylenol) celecoxib 200 mg capsule mg PO DAILY 08/25/24 Unknown Histo ry tramadol 50 mg tablet mg PO 08/25/24 Unknown History Allergy/AdvReac Type Severity Reaction Status Date / Time aspirin Allergy Hives Verified 11/16/24 10:25 Family History Father Heart disease Myocardial infarction Cancer Surgical History History of back surgery History of ankle surgery History of left heart catheterization (12/08/18) Social History (Updated 11/16/24 @ 11:35 by Tracey Sanabria) household members: spouse housing: house Smoking Status: Never smoker alcohol intake: never ROS ROS ED ROS Narrative Constitutional: Negative for fever, chills, malaise. Eyes: Positive for visual change. GI: Negative for nausea, vomiting Neuro: Negative for headache. EXAM Physical Exam Narrative Exam Narrative: CONST: Patient sitting in no acute distress. EYES: Normal inspection. PERRL, EOMI. No major abnormalities on funduscopic exam. NECK: Normal inspection. RESP: No respiratory distress, CTAB. CVS: Regular rate and rhythm, no murmur, no gallop. SKIN: Color normal, no rash, warm, dry, intact. EXTREMITIES: Normal appearance, no pedal edema. NEURO: Alert and answering questions appropriately. PSYCH: Normal affect. Const Vital Signs: 11/16/24 10:23 Temperature 98.2 F Temperature Source Oral Pulse Rate 74 Respiratory Rate 16 Blood Pressure 174/99 H Blood Pressure Mean 124 Pulse Ox 98 Oxygen Delivery Method Room Air MDM MDM MDM Narrative Medical decision making narrative: Differential includes but not limited to, retinal detachment, intraocular process, amaurosis fugax/CVA 49-year-old male presents with visual disturbance. He initially had blurry floaters in the right eye which then occurred in the left eye. He subsequently developed a black curtain like vision loss in the left temporal field which has resolved. He is back to baseline. His vital signs are stable and his exam is unremarkable. Basic labs are obtained and are unremarkable. CT and CTA of the head and neck show no acute abnormalities. I consulted ophthalmology and Dr. Verma will see him in the office at 3 PM this afternoon. He was discharged in stable condition. I have personally performed a face to face assessment of the patient and have reviewed the LEONARD Note. I performed a substantive portion of the visit including all aspects of the following. My [place] findings include: History is [patient presents to the emergency department complaint of vision loss. Patient states initially had some symptoms that started in his right eye while driving where he would have just patchy loss of vision. Subsequently then symptoms developed in his left eye where he had patchy vision loss but not complete vision loss in that eye. While waiting in the waiting room in the ED he had like a curtain come over the left eye lasted several seconds and then it resolved. His vision is currently totally resolved. He has never had symptoms like that before. He denies headache. Denies recent illness. He did not have any difficulty with speech. He did not have any focal weakness or paresthesias. Patient currently on tirzepatide and did have a dose today.] Exam is [HEENT-PERRLA, EOMI. Cranial nerves II through XII grossly intact. TMs clear. Mucous membranes moist. No adenopathy. Cardiovascular-regu lar rate and rhythm without murmur or ectopy Lungs-clear to auscultation, chest wall stable without crepitus or subcu emphysema Abdomen-normoactive bowel sounds, soft, nontender, no rebound or rigidity, no peritoneal signs. Extremities-intact ???4, normal ra (more content not included)... Normal [facility] Eosinophil percentageOrdered By: Lupis Vu on 11-16-2024 Eosinophils/100 WBC (Bld) 2.5 % 0-5 [facility] Erythrocyte distribution wid th (RBC) [Ratio]Ordered By: Lupis Vu on 11-16-2024 Erythrocyte distribution width (RBC) [Entitic vol] 40.4 fL 35.1-43.9 [facility] Erythrocyte distribution wid th ratioOrdered By: Lupis Vu on 11-16-2024 Erythrocyte distribution width (RBC) [Ratio] 11.9 % 11.6-14.6 [facility] Estimation of creatinine kayla aranceOrdered By: Lupis Vu on 11-16-2024 Estimated Creatinine Clearance Calc 123.58 ml/min 50-250 [facility] GFR/1.73 sq M.predicted sean g non-blacks MDRD (S/P/Bld) [Vol rate/Area]Ordered By: Lupis Vu on 11-16-2024 Estimated GFR (MDRD) Non-Af Amer 82 >60 [facility] Comment on above: mL/min/1.73m2 CKD-EP I Creatinine Equation (2020) Hematocrit Auto (Bld) [Volum e fraction]Ordered By: Lupis Vu on 11-16-2024 Hematocrit (Bld) [Volume fraction] 42.1 % 40-54 [facility] Hemoglobin measurementOrdere d By: Lupis Vu on 11-16-2024 Hemoglobin (Bld) [Mass/Vol] 14.6 g/dL 13.0-16.5 [facility] Immature granulocytes/100 WB C Auto (Bld)Ordered By: Lupis Vu on 11-16-2024 Immature granulocytes/100 WBC (Bld) 0.700 % 0.0-0.9 [facility] Comment on above: IG% - Immature Granu locytes (promyelocytes, myelocytes and metamyelocytes) > 1% indicates that a LEFT SHIFT is Present. Lymphocytes Auto (Unsp spec) [#/Vol]Ordered By: Lupis Vu on 11-16-2024 Lymphocytes (Bld) [#/Vol] 1.76 10*3/uL 0.83-4.5 1 [facility] Lymphocytes/100 WBC Auto (Un sp spec)Ordered By: Lupis Vu on 11-16-2024 Lymphocytes/100 WBC (Bld) 26.1 % 19-41 [facility] MCV (mean corpuscular volume ) determinationOrdered By: Lupis Vu on 11-16-2024 MCV (RBC) [Entitic vol] 92.3 fL 80-94 [facility] Mean corpuscular hemoglobin (MCH) determinationOrdered By: Lupis Vu on 11-16-2024 MCH (RBC) [Entitic mass] 32.0 pg 27.0-32.0 [facility] Mean corpuscular hemoglobin concentration (MCHC) determinationOrdered By: Lupis Vu on 11-16-2024 MCHC (RBC) [Mass/Vol] 34.7 g/dL 32-36 [facility] Mean platelet volume determi nationOrdered By: Lupis Vu on 11-16-2024 Platelet mean volume (Bld) [Entitic vol] 11.6 fL 6.2-12.0 [facility] Monocyte percentageOrdered B y: Lupis Vu on 11-16-2024 Monocytes/100 WBC (Bld) 8.5 % 0-10 [facility] Neutrophil percentageOrdered By: Lupis Vu on 11-16-2024 Neutrophils/100 WBC (Bld) 61.2 % 47-70 [facility] Nucleated red blood cell per centageOrdered By: Lupis Vu on 11-16-2024 Nucleated RBC/100 WBC (Bld) [Ratio] 0 % 0-5 [facility] Platelet countOrdered By: Marcela Vu on 11-16-2024 Platelets (Bld) [#/Vol] 223 10*3/uL 150-450 [facility] Potassium (Unsp spec) [Mass/ Vol]Ordered By: Lupis Vu on 11-16-2024 Potassium [Moles/Vol] 4.1 mmol/L 3.3-5.1 [facility] RBC Auto (Bld) [#/Vol]Ordere d By: Lupis Vu on 11-16-2024 RBC (Bld) [#/Vol] 4.56 10*6/uL Low 4.6-6.2 [facility] Serum creatinine measurement (mass/volume)Ordered By: Lupis Vu on 11-16-2024 Creatinine [Mass/Vol] 1.10 mg/dL 0.70-1.20 [facility] Serum glucose measurement (m ass/volume)Ordered By: Lupis Vu on 11-16-2024 Glucose [Mass/Vol] 85 mg/dL 70-99 [facility] Serum or plasma calcium ne urement (mass/volume)Ordered By: Lupis Vu on 11-16-2024 Calcium [Mass/Vol] 9.2 mg/dL 7.6-11.0 [facility] Serum or plasma urea nitroge n measurement (mass/volume)Ordered By: Lupis Vu on 11-16-2024 Urea nitrogen [Mass/Vol] 14 mg/dL 4-19 [facility] Sodium levelOrdered By: Lupis Vu on 11-16-2024 Sodium [Moles/Vol] 139 mmol/L 133-145 [facility] White blood cell (WBC) count Ordered By: Lupis Vu on 11-16-2024 WBC (Bld) [#/Vol] 6.7 10*3/uL 4.4-11.0 [facility] Pulmonary Visit Reporton Pulmonary Visit Report [facility] [address] [place] [address] OFFICE VISIT Date of Service: 08/25/24 MR#: [id number] Acct: [id number] Name: NABEEL PITTS Rep #: [id number] : 1975 Provider: DAWNA Foster Age/Sex: 49/M [facility] Status: Signed Assessment and Plan Assessment and Plan (1) CITLALLI (obstructive sleep apnea): Status: Chronic Comment: BiPAP 19/15 cmH2O with a back-up rate of 10 Plan: He is using and benefiting from Pap therapy. No indication for titration study at this time. He is eligible for a new machine, which will be ordered. Contact the office for any new or worsening symptoms in the meantime. Follow-up in 1 year. (2) Morbid obesity: Status: Chronic Plan: Complicates exam, plan, care and prognosis. Encourage healthy weight loss. HPI HPI Comments Details: This patient presents to the office today to reestablish care regarding his obstructive sleep apnea. He is ambulatory and currently on room air. He has not recently been seen in the ED or urgent care for any respiratory illness. He has not required any antibiotics or prednisone for any breathing problems. If you recall, he was previously established with the office and being treated for sleep apnea. He states he "I was doing so good I did not think I needed to come back to the doctor". He continues to have excellent compliance with PAP therapy. He wakes feeling rested refreshed. He is not having difficulty with dry mouth or mask leaks. He is not requiring naps and is not nodding off to sleep unintentionally. 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 He sometimes works from home. He admits to a mostly sedentary lifestyle. He does have some concerns about weight loss. He states that is very difficult for him to lose weight. He has been successful in the past by counting calories and remaining in a 500-calorie deficit daily. He has a history of playing lots of sports and weight training. He is wondering if those new weight loss drugs" might be something that could help him. He denies any difficulty with shortness of breath. He denies any cough, sputum production or hemoptysis. He denies any wheezing, chest tightness, chest pain or palpitations. He has not had any fever, chills or body aches. Compliance report for the past 30 days shows 97% compliance and average use of 7 hours and 20 minutes per night. Current setting is BiPAP 19/15 cm with backup rate of 10 breaths/min. Residual AHI 0.7 events per hour. Leaks do not appear to be problematic. 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: [employer] Accompanied by: Self Allergies aspirin Allergy (Verified 08/25/24 15:13) Hives Medications ???Medication ???Instructions ???Recorded ???Confirmed ???Type acetaminophen 325 mg capsule 325 mg PO ONCE PRN 09/23/20 08/25/24 History (Tylenol) celecoxib 200 mg capsule mg PO DAILY 08/25/24 08/25/24 History tramadol 50 mg tablet mg PO 08/25/24 08/25/24 History PFSH Medical History (Updated 08/25/24 @ 16:12 by Shala Foster NP, WEATHERIZATION DIRECTOR-C) Chronic back pain Morbid obesity Surgical History History of back surgery History of ankle surgery History of left heart catheterization (12/08/18) Family History Father Heart disease Myocardial infarction Cancer Social History Smoking Status: Never smoker alcohol intake: never Review of Systems Resp Respiratory: Yes as per HPI Exam Const Constitutional: Positive conversant, cooperative, in no acute respiratory distress, healthy appearing, well developed, well nourished, good hygiene and obese Head Head: Yes normocephalic, Yes atraumatic and No cyanosis of lips/distal nose Eyes Eye: Positive clear conjunctiva; Negative nystagmus or scleral abnormality Ears Ear: Positive hearing normal and external ears normal Nose Nose: Yes external nose normal Mouth Mouth: Positive oral mucosae normal Neck Neck: Positive normal visual inspection, thick neck, full ROM and trachea midline Chest Wall Chest: Positive normal inspection of the chest and symmetric chest movement; (more content not included)... Normal [facility] Office Visit (ORMDNA) ---- NABEEL PITTS ([id number]) 1975 M Date Time Provider Department 06/24/24 8:45 AM AMAN STEVENS During your visit today, we recorded the following information about you: Aman Stevens MD 07/20/2024 8:23 AM Signed REASON FOR VISIT / CHIEF COMPLAINT CHIEF COMPLAINT: Nabeel Pitts is a 44 year old male who presents today for follow up office visit. Patient presents with: Right Ankle - Established Patient, Follow Up, Pain HISTORY OF PRESENT ILLNESS (HPI) PAIN EVALUATION 06/24/2024 0621 Pain Level: 5 Pain Location: Ankle-Right Description: Aching Duration Units: Days Frequency: Continuous Intervention/Comfor t measure: Medication;Repositi on;Cold;Pillow support F/u right ankle arthritis s/p fracture dislocation of ankle . He reports that over the last month or so he is had an increase in his ankle pain feels it may be related to activity level and it may be related to weather changes. He has gone from taking his Celebrex intermittently to taking it on a daily basis. Any new injury, since being seen last: No Is there any overall improvement in your condition? No Does anything make it worse?: Yes, wt bearing Does anything make it better?: Yes, rest REVIEW OF SYMPTOMS: Integumentary: Any recent skin changes or rashes? No Neurologic: Any numbness or tingling in the LOCAL AREA? No Endocrine: Any diagnosis of diabetes? No Hematologic: Any recent bleeding episodes? No ALLERGIES ALLERGIES Allergen Reactions Aspirin Swelling, Anaphylaxis Took with percocet PAST MEDICAL HISTORY No past medical history on file. No past surgical history on file. PHYSICAL EXAMINATION Vitals: There were no vitals taken for this visit. Body Habitus:no acute distress and alert and oriented Orientation: Normal: Oriented to person, place and time Psych: normal Sensation: sensation to light touch is grossly normal bilaterally Skin: Color, texture, turgor normal. No rashes or lesions Swelling: swelling noted of the ankle Stance: normal cervical posture, shoulder alignment, and no joint deformities or swelling noted Right Ankle Exam Tenderness The patient is experiencing tenderness in the medial malleolus (Patient is tender to palpation over the anterior joint line.). Swelling: mild Range of Motion Dorsiflexion: 10 Plantar flexion: 20 Eversion: 5 Inversion: 5 Muscle Strength Dorsiflexion: 4/5 Plantar flexion: 5/5 Anterior tibial: 4/5 Posterior tibial: 4/5 Gastrocsoleus: 5/5 Peroneal muscle: 4/5 Tests Anterior drawer: negative Varus tilt: negative Other Erythema: absent Scars: present Sensation: normal Pulse: present Imaging : X-rays of the ankle today show the ankle joint has maintained as previously noted alignment. There is still some mild narrowing of the tibial talar joint but it does not appear to have progressed since his last visit The fibular fracture remains healed and the hardware is in good position. 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 This plan was recommended he continue with Celebrex as needed for pain. If his symptoms progress we could consider a corticosteroid injection although these have had variable results in the past Plan: 1. Continue Celebrex new prescription for tramadol given. He is using this sparingly. 2. Continue independent range of motion exercises and weightbearing as tolerated 3. Follow-up 6 months Aman Stevens M.D. Department of Orthopaedic Surgery [facility] Referring Provider: SELF [200] Allergies As of Date: 06/24/2024 Noted Allergy Reaction ASPIRIN 03/31/2014 7 - Swelling 10 - Anaphylaxis Comments: Took with percocet Date Reviewed: 12/20/2023 Reviewed by: Aman Stevens MD - Fully Assessed Reason for Visit: Established Patient [175] Follow Up [171] Pain [78] Visit Diagnoses:Post-trau matic arthritis of ankle, right [M19.171] Chronic pain of right ankle [M25.571, G89.29] Order(s):traMADol (ULTRAM) 50 mg tabletTake 1 tablet by mouth every 8 hours as needed for pain for up to 7 days.Disp: 21 tabletRfl: 0 Prescriptions as of 07/20/2024 - traMADol (ULTRAM) 50 mg tablet Take 1 tablet by mouth every 8 hours as needed for pain for up to 7 days. - celecoxib (CELEBREX) 200 mg capsule Take 1 capsule by mouth once daily. 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 Normal [facility] XR Ankle - right AP and Late ral and obliqueon 12-21-2023 IMPRESSION: No acute abnormality. Remote postoperative change and degenerative change. Supervisor Inspection Department: JACQUELYN Transcribe Date/Time: Dec 21 2023 9:41A Dictated by : MARIA ELENA BASS MD This examination was interpreted and the report reviewed and electronically signed by: MARIA ELENA BASS MD on Dec 21 2023 9:42AM EST [facility] * * *Final Report* * * DATE OF EXAM: Dec 20 2023 8:46AM FUNMILAYO 5297 - XR ANKLE 3V AP/LAT/OBL RT / PROCEDURE REASON: M19.375-[id number] tic arthritis of ankle, right * * * * Physician Interpretation * * * * PROCEDURE: Right ankle INDICATION: Post-traumatic arthritis of ankle, right .pt states he has been having pain in his right ankle TECHNIQUE: XR ANKLE 3V AP/LAT/OBL RT COMPARISON: 12/25/2021 FINDINGS: Stable plate and screws in the distal fibula. No hardware fracture or loosening. No residual fracture line. No acute fracture or dislocation. There is mild asymmetric narrowing of the superolateral tibiotalar joint, little changed compared to previous and thought to be degenerative. Stable ossifications distal to the medial malleolus. Mild midfoot osteoarthrosis. [facility] Provider, [facility] - 12/21/2023 * * *Final Report* * * DATE OF EXAM: Dec 20 2023 8:46AM FUNMILAYO 5297 - XR ANKLE 3V AP/LAT/OBL RT / PROCEDURE REASON: M19.429-[id number] tic arthritis of ankle, right * * * * Physician Interpretation * * * * PROCEDURE: Right ankle INDICATION: Post-traumatic arthritis of ankle, right .pt states he has been having pain in his right ankle TECHNIQUE: XR ANKLE 3V AP/LAT/OBL RT COMPARISON: 12/25/2021 FINDINGS: Stable plate and screws in the distal fibula. No hardware fracture or loosening. No residual fracture line. No acute fracture or dislocation. There is mild asymmetric narrowing of the superolateral tibiotalar joint, little changed compared to previous and thought to be degenerative. Stable ossifications distal to the medial malleolus. Mild midfoot osteoarthrosis. IMPRESSION IMPRESSION: No acute abnormality. Remote postoperative change and degenerative change. Supervisor Inspection Department: JACQUELYN Transcribe Date/Time: Dec 21 2023 9:41A Dictated by : MARIA ELENA BASS MD This examination was interpreted and the report reviewed and electronically signed by: MARIA ELENA BASS MD on Dec 21 2023 9:42AM EST [facility] XR Ankle - right AP and Late ral and obliqueOrdered By: [facility] Provider on 12-21-2023 [facility] XR Ankle - right AP and Late ral and obliqueon 12-20-2023 Radiology Study observation (narrative) [facility] No Panel Informationon 12-25 [facility] Vital Signs Date Time Vital Sign Value Performing Clinician Octavio loza 11-16-2024 13:29-0400 Body temperature 98 [degF] Dr. Jewels Encarnacion MD Work Phone: [facility] 11-16-2024 13:29-0400 Diastolic blood pressure 81 mm[Hg] Dr. Jewels Encarnacion MD Work Phone: [facility] 11-16-2024 13:29-0400 Heart rate 78 /min Dr. Jewels Encarnacion MD Work Phone: [facility] 11-16-2024 13:29-0400 Respiratory rate 16 /min Dr. Jewels Encarnacion MD Work Phone: [facility] 11-16-2024 13:29-0400 SaO2% (BldA) [Mass fraction] 99 % Dr. Jewels Encarnacion MD Work Phone: [facility] 11-16-2024 13:29-0400 Systolic blood pressure 141 mm[Hg] Dr. Jewels Encarnacion MD Work Phone: 0(134)[phone] [place] [address] 11-16-2024 10:23-0400 Body height 175.[address] Jewels Encarnacion MD Work Phone: 5([phone])[phone] [place] [address] 11-16-2024 10:23-0400 Body mass index (BMI) [Ratio] 53 kg/m2 Dr. Jewels Encarnacion MD Work Phone: 2(431)[phone] [place] [address] 11-16-2024 10:23-0400 Body weight 162.[address] Jewels Encarnacion MD Work Phone: 6(898)[phone] [place] [address] 08-25-2024 08:50-0500 Body mass index (BMI) [Ratio] 57.6 kg/m2 Dr. Jewels Encarnacion MD Work Phone: 1(900)923-376123 [address] 08-25-2024 08:50-0500 Body temperature 96.9 [degF] Dr. Jewels Encarnacion MD Work Phone: 8(091)[phone] [place] [address] 08-25-2024 08:50-0500 Body weight 176.[address] Jewels Encarnacion MD Work Phone: 1(305)[phone] [address] 08-25-2024 08:50-0500 Diastolic blood pressure 90 mm[Hg] Dr. Jewels Encarnacion MD Work Phone: 2(616)925-835053 [place] [address] 08-25-2024 08:50-0500 Heart rate 69 /min Dr. Jewels Encarnacion MD Work Phone: 5([phone])[phone] [address] 08-25-2024 08:50-0500 Respiratory rate 18 /min Dr. Jewels Encarnacion MD Work Phone: [facility] 08-25-2024 08:50-0500 SaO2% (BldA) [Mass fraction] 96 % Dr. Jewels Encarnacion MD Work Phone: [facility] 08-25-2024 08:50-0500 Systolic blood pressure 158 mm[Hg] Dr. Jewels Encarnacion MD Work Phone: [facility] Encounters Encounter Date Encounter Type Care Provider Facility Start: 05-14-2025 ambulatory Rylie Cabrera Facility :[facility] Start: 01-04-2025 End: 01-04-2025 Refill Mo Ramsay PA-C Work Phone: Orthopaedics Comment on above: Refill Request Start: 12-23-2024 End: 12-23-2024 Patient encounter procedure Aman Stevens MD Work Phone: Orthopaedics Comment on above: Post-traumatic arthr itis of ankle, right (Primary Dx) Start: 12-23-2024 End: 12-23-2024 ambulatory JEWELS ENCARNACION Facility:[facility] Start: 12-04-2024 ambulatory Alfredito Tamayo Facility:[facility] Start: 12-04-2024 End: 12-04-2024 ambulatory Devendra Verma Facility:[facility] Start: 11-23-2024 End: 11-23-2024 Refill Aman Stevens MD Work Phone: Orthopaedics Comment on above: Refill Request Start: 11-21-2024 End: 11-23-2024 Refill Aman Stevens MD Work Phone: Orthopaedics Comment on above: Refill Request Start: 11-16-2024 End: 11-16-2024 Emergency department patient visit Dr. Jewels Encarnacion MD Work Phone: -Emergency Department Work Phone: Start: 08-25-2024 End: 08-25-2024 Patient encounter procedure Shala TONEY -[facility] Work Phone: Start: 08-25-2024 End: 08-25-2024 ambulatory Jewels Encarnacion Facility:[facility] Start: 06-24-2024 End: 06-24-2024 ambulatory AMAN STEVENS Facility:[facility] Start: 06-24-2024 End: 06-24-2024 Patient encounter procedure Aman Stevens MD Work Phone: Orthopaedics Comment on above: Post-traumatic arthr itis of ankle, right; Chronic pain of right ankle Start: 06-05-2024 End: 06-05-2024 ambulatory Aman Stevens MD Work Phone: Orthopaedics Comment on above: Tramadol Start: 06-03-2024 End: 06-05-2024 Refill Saleem Banks PA-C Work Phone: Orthopaedics Comment on above: Refill Request Start: 02-20-2024 Refill Saleem Banks PA-C Work Phone: Orthopaedics Comment on above: Refill Request Start: 02-12-2024 ambulatory Aman desir MD Work Phone: Orthopaedics Comment on above: Medical Records Start: 12-24-2023 Refill Saleem Banks PA-C Work Phone: Orthopaedics Comment on above: Refill Request Start: 12-20-2023 End: 12-20-2023 Subsequent hospital visit by physician Radio General Kelly Michael Work Phone: Radiology Comment on above: Post-traumatic arthr itis of ankle, right [M19.171] Start: 12-20-2023 End: 12-20-2023 Patient encounter procedure Aman Stevens MD Work Phone: Orthopaedics Comment on above: Post-traumatic arthr itis of ankle, right (Primary Dx) Start: 10-02-2023 Refill Saleem GODOY-C Work Phone: Orthopaedics Comment on above: Refill Request Start: 09-16-2023 Telephone encounter Aman Stevens MD Work Phone: Orthopaedics Comment on above: Appointment Cancelle d Start: 06-17-2023 End: 06-17-2023 Patient encounter procedure Aman Stevens MD Work Phone: Orthopaedics Comment on above: Post-traumatic arthr itis of ankle, right (Primary Dx) Start: 03-25-2023 Refill Saleem Banks PA-C Work Phone: Orthopaedics Comment on above: Refill Request Start: 03-25-2023 Refill Saleem Banks PA-C Work Phone: Orthopaedics Comment on above: Refill Request Start: 02-19-2023 Refill Aman desir MD Work Phone: Orthopaedics Comment on above: Refill Request Start: 12-24-2022 End: 12-24-2022 Patient encounter procedure Aman Stevens MD Work Phone: Orthopaedics Comment on above: Post-traumatic arthr itis of ankle, right; Chronic pain of right ankle Start: 09-18-2022 Refill Saleem GODOY-C Work Phone: Orthopaedics Comment on above: Refill Request Start: 08-02-2022 Refill Saleem Banks PA-C Work Phone: Orthopaedics Comment on above: Refill Request Start: 07-02-2022 End: 07-02-2022 Patient encounter procedure Aman Stevens MD Work Phone: Orthopaedics Comment on above: Post-traumatic arthr itis of ankle, right (Primary Dx); Chronic pain of right ankle Start: 03-16-2022 Refill Aman desir MD Work Phone: Orthopaedics Comment on above: Refill Request Start: 02-15-2022 Refill Aman desir MD Work Phone: Orthopaedics Comment on above: Refill Request Start: 12-25-2021 End: 12-25-2021 Subsequent hospital visit by physician Radio General Kelly Michael Work Phone: Radiology Comment on above: Post-traumatic arthr itis of ankle, right [M19.171] Start: 12-25-2021 End: 12-25-2021 Patient encounter procedure Aman Stevens MD Work Phone: Orthopaedics Comment on above: Post-traumatic arthr itis of ankle, right (Primary Dx); Chronic pain of right ankle Start: 11-22-2021 Refill Aman desir MD Work Phone: Orthopaedics Comment on above: Refill Request Procedures Date Procedure Procedure Detail Performing Clinician Start: 11-16-2024 CT angiography of he ad and neck Dr. Jewels Encarnacoin MD Work Phone: Start: 11-16-2024 CT of head without contrast Dr. Jewels Encarnacion MD Work Phone: Start: 12-20-2023 Radex ankle complete minimum 3 views Aman Stevens MD Work Phone: Start: 12-25-2021 Radex ankle complete minimum 3 views Aman Stevens MD Work Phone: Plan of Treatment Date Care Activity Detail Author Start: 06-25-2025 End: 06-25-2025 Patient encounter procedure 06/25/2025 8:00 AM EST Office Visit Orthopaedics [address] [phone] Aman Stevens MD [address] [phone] 6 m f/u, right ankle Orthopa[facility]ics Comment on above: 6 m f/u, right ankle Start: 04-05-2025 Influenza vaccination Influenz a Vaccine (Season Ended) [facility] Start: 12-23-2024 End: 12-23-2024 Patient encounter procedure 12/23/2024 8:00 AM EDT Office Visit Orthopa[facility]ics [address] [phone] Aman Stevens MD [address] [phone] 6 month follow up, right ankle, [facility] Orthopaedics Comment on above: 6 month follow up, r ight ankle, [facility] Start: 11-16-2024 [facility] Start: 06-24-2024 End: 06-24-2024 Patient encounter procedure 06/24/2024 8:45 AM EST Office Visit Orthopaedics [address] [phone] Aman Stevens MD [address] [phone] 6 month follow up, right ankle, [facility] Orthopaedics Comment on above: 6 month follow up, r ight ankle, [facility] Start: 04-05-2024 Covid-19 Vaccine ( season) Covid-19 Vaccine ( season) [facility] Start: 04-05-2024 Covid-19 Vaccine ( season) Covid-19 Vaccine ( season) [facility] Start: 04-05-2024 Influenza vaccination C [facility] Start: 08-05-2023 Behavioral Health Screening Behavioral Health Screening [facility] Start: 08-05-20[address] 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 non-steroidal anti-inflammatories (NSAID) Expected: 03/25/2023, Expires: 05/25/2023 [facility] Work Phone: Comment on above: Expected: 03/25/2023 , Expires: 05/25/2023 Start: 08-05-2022 DEPRESSION ASSESSMENT DEPRESSION ASS ESSMENT [facility] Start: 04-05-2022 Influenza vaccination C [facility] Start: 08-05-2021 DEPRESSION ASSESSMENT DEPRESSION ASS ESSMENT [facility] Start: 2020 COLOGUARD (FIT-DNA) COLOGUARD (FIT-D NA) [facility] Start: 2020 Colonoscopy COLONOSCOPY [facility] Start: 2020 COLORECTAL CANCER SCREENING COLORECTAL CANCER SCREENING [facility] Start: [address]GR[facility] Start: 2020 [facility] Start: 2020 Diabetes Screening Diabetes Screenin g [facility] Start: 2020 FECAL OCCULT BLOOD FECAL OCCULT BLOO D [facility] Start: 2020 Screening for malign ant neoplasm of colon [facility] Start: 2020 SIGMOIDOSCOPY SIGMOIDOSCOPY [facility] Start: 2010 Lipid 1996 panel - Serum or Plasma Lipid Screening [facility] Start: 2010 Lipid panel Lipid Screening [facility] Start: 2010 LIPID SCREEN LIPID SCREEN [facility] Start: 1994 Hepatitis B Vaccine (1 of 3 - 19+ 3-dose series) Hepatitis B Vaccine (1 of 3 - 19+ 3-dose series) [facility] Start: 1994 Urine microalbumin profile [facility] Start: 1993 Anxiety Screening Anxiety Screening [facility] Start: 1993 Depression Screening Depression Scre ening [facility] Start: 1993 HEPATITIS C SCREENING HEPATITIS C SC [facility] Start: 1993 Hepatitis C screening Hepatitis C Sc [facility] Start: 1993 HIV SCREENING HIV SCREENING [facility] Start: 1993 HIV screening HIV Screening [facility] Start: 1987 Adult depression screening assessment DEPRESSION SCREENING [facility] Start: 1980 COVID-19 VACCINE (#1) COVID-19 VACCI NE (#1) [facility] Start: 1980 COVID-19 VACCINE (1) COVID-19 VACCIN E (1) [facility] Start: 1975 COVID-19 VACCINE (#1) COVID-19 VACCI NE (#1) [facility] Start: 1975 HEPATITIS B (1 of 3 - 3-dose series) HEPATITIS B (1 of 3 - 3-dose series) [facility] Start: 1975 Hepatitis B Vaccine (1 of 3 - 3-dose series) Hepatitis B Vaccine (1 of 3 - 3-dose series) [facility] Patient Education Understanding Vision Problems [facility] Work Phone: Patient referral [facility] Work Phone: End: 01-18-2025 XR Ankle - right AP and Lateral and oblique XR ANKLE GENERAL 3V AP/LAT/OBL RIGHT Radiology Routine Post-traumatic arthritis of ankle, right 1 Occurrences starting 12/20/2023 until 01/18/2025 [facility] Work Phone: Comment on above: 1 Occurrences starti ng 12/20/2023 until 01/18/2025 XR Ankle - right AP and Lateral and oblique XR ANKLE GENERAL 3V AP/LAT/OBL RIGHT Radiology Routine Post-traumatic arthritis of ankle, right 12/20/2023 8:46 AM EDT [facility] [place] [facility] Payers Date Payer Category Payer Self-pay 2024 Unknown [id number] 2022 Private Health Insurance [id number] 2006 Government (not [employer] or Medicaid) [facility] [place] Address: [address] [place] [address] [id number] 2006 Unknown [facility] [id number] 2006-Present [phone] [address] [place] [address] [facility] [id number] 2006 Unknown [facility] [id number] 2006-Present [phone] [address] [place] [address] O [id number] 2006 Unknown [id number] Unknown [id number] Unknown [id number] Unknown [id number] Unknown [id number] Unknown [id number] Social History Date Type Detail Facility Start: 05-03-2011 End: 07-02-2022 Tobacco smoking status NYIS Never smoked tobacco [facility] Start: 05-03-2011 End: 07-02-2022 Tobacco use and exposure Former smokeless tobacco user [facility] End: 01-13-2019 History of tobacco use Chews Tobacco [facility] Start: 06-26-2021 End: 12-23-2024 Alcohol intake Not Asked [facility] Start: 1975 Sex Assigned At Not on file C [facility] Start: 1975 Sex Assigned At Male C [facility] Start: 12-15-2021 End: 12-25-2021 Exposure to SARS-CoV-2 (event) Not sure [facility] Start: 12-24-2022 End: 12-21-2024 History of Social function [facility] Start: 12-24-2022 End: 12-21-2024 Tobacco use panel [facility] National Score (1-10 0), lower number is lower risk 50 [facility] Start: 12-21-2021 Gender identity Identifies as male gender (finding) [facility] Start: 12-21-2021 Sexual orientation Heterosexual (fin ding) [facility] Start: 12-08-2018 None None [facility] Start: 12-08-2018 With Family With Family [facility] Start: 12-08-2018 Chew Chew [facility] Start: 11-16-2024 Sex Male (finding) [facility] Functional Status Date Assessment Result Facility 01-31-2015 Are you deaf, or do you have serious difficulty hearing No 01/31/2015 8:10 AM EDT Sanaz Stone MA No [facility] 01-31-2015 Are you blind, or do you have serious difficulty seeing, even when wearing glasses No 01/31/2015 8:10 AM EDT Sanaz Stone MA No [facility] 01-31-2015 Do you have serious difficulty walking or climbing stairs Yes 01/31/2015 8:10 AM EDT Sanza Stone MA Yes [facility] 01-31-2015 Do you have difficul ty dressing or bathing No 01/31/2015 8:10 AM EDT Sanaz Stone MA No [facility] 01-31-2015 Because of a physica l, mental, or emotional condition, do you have difficulty doing errands alone such as visiting a physician's office or shopping No 01/31/2015 8:10 AM EDT Sanaz Stone MA No [facility] Mental Status Date Assessment Result Facility 01-31-2015 Because of a physica l, mental, or emotional condition, do you have serious difficulty concentrating, remembering, or making decisions No 01/31/2015 8:10 AM EDT Sanaz Stone MA No [facility] Clinical Notes 11-22-2021 to 01-04-2025 Telephone Encounter - Saleem Banks PA-C - 01/04/2025 10:02 AM EDTTelephone Encounter - Saleem Banks PA-C - 01/04/2025 10:02 AM Aman Casarez MD - 12/23/2024 8:06 AM EDT Note Date & Type Note Facility 01-04-2025 Telephone encounter Note PDMP website reviewed and validated. Patient has been compliant and taking medication appropriately without evidence of suspicious activity. Will refill Rx. Saleem Banks PA-C [facility] 01-04-2025 Miscellaneous Notes PDMP website reviewed and validated. Patient has been compliant and taking medication appropriately without evidence of suspicious activity. Will refill Rx. Saleem Banks PA-C documented in this encounter [facility] 12-23-2024 Note HNO ID: [id number] Author: SANAZ STANFORD Tech Service: Radiology Author Type: Installers Mechanical Type: Progress Notes Filed: 12/23/2024 08:34 Note Text: Radiology Service Progress Note PATIENT NAME: Nabeel Pitts DATE OF SERVICE: December 23, 2024 TIME: 8:33 AM PATIENT IDENTITY VERIFICATION COMPLETED USING TWO (2) IDENTIFIERS: Name and Date of confirmed by patient verbally. FALL SCREENING: Has the patient had 2 falls in the last year or 1 fall with injury or currently using an Ambulatory Assistive Device (Walker, Cane, Wheelchair, Crutches, etc.)? No PATIENT GENDER DATA: Assigned male at PATIENT RELEVANT IMPLANT DATA REVIEWED: Not Applicable PATIENT PRESENTS WITH AN IMPLANTABLE OR ATTACHED CAGE CLERK: No RADIOLOGY DEPARTMENT: General X-ray: Exam(s) Completed: Lower Extremity X-Ray(s): Ankle, Right and Wt. Bearing PERIPHERAL IV DATA: Not applicable SIGNED BY: Chao Quesada December 23, 2024 8:33 AM [facility] 12-23-2024 Note HNO ID: [id number] Author: AMAN STEVENS MD Service: ? Author Type: Physician Type: Progress Notes Filed: 01/18/2025 09:54 Note Text: REASON FOR VISIT / CHIEF COMPLAINT CHIEF COMPLAINT: Nabeel Pitts is a 44 year old male who presents today for follow up office visit. Patient presents with: Right Ankle - Follow Up, Pain HISTORY OF PRESENT ILLNESS (HPI) PAIN EVALUATION 12/21/20242035 Pain Level: 5 Pain Location: Ankle-Right Description: Aching;Sharp;Throbbing Duration Amount of Time: 6 Duration Units: Hours Frequency: Intermittent Intervention/Comfort measure: Medication;Reposition;Relaxatio n;Cold;Heat;Pillow support F/u right ankle arthritis s/p fracture dislocation of ankle . He reports that over the last month or so he is had an increase in his ankle pain feels it may be related to activity level and it may be related to weather changes. He has gone from taking his Celebrex intermittently to taking it on a daily basis. Any new injury, since being seen last: No Is there any overall improvement in your condition? No Does anything make it worse?: Yes, wt bearing Does anything make it better?: Yes, rest REVIEW OF SYMPTOMS: Integumentary: Any recent skin changes or rashes? No Neurologic: Any numbness or tingling in the LOCAL AREA? No Endocrine: Any diagnosis of diabetes? No Hematologic: Any recent bleeding episodes? No ALLERGIES ALLERGIES Allergen Reactions Aspirin Swelling, Anaphylaxis Took with percocet PAST MEDICAL HISTORY History reviewed. No pertinent past medical history. History reviewed. No pertinent surgical history. PHYSICAL EXAMINATION Vitals: There were no vitals taken for this visit. Body Habitus:no acute distress and alert and oriented Orientation: Normal: Oriented to person, place and time Psych: normal Sensation: sensation to light touch is grossly normal bilaterally Skin: Color, texture, turgor normal. No rashes or lesions Swelling: swelling noted of the ankle Stance: normal cervical posture, shoulder alignment, and no joint deformities or swelling noted Right Ankle Exam Tenderness The patient is experiencing tenderness in the medial malleolus (Patient is tender to palpation over the anterior joint line.). Swelling: mild Range of Motion Dorsiflexion: 10 Plantar flexion: 20 Eversion: 5 Inversion: 5 Muscle Strength Dorsiflexion: 4/5 Plantar flexion: 5/5 Anterior tibial: 4/5 Posterior tibial: 4/5 Gastrocsoleus: 5/5 Peroneal muscle: 4/5 Tests Anterior drawer: negative Varus tilt: negative Other Erythema: absent Scars: present Sensation: normal Pulse: present Imaging : X-rays of the ankle today show the ankle joint has maintained as previously noted alignment. There is still some mild narrowing of the tibial talar joint but it does not appear to have progressed since his last visit The fibular fracture remains healed and the hardware is in good position. 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 This plan was recommended he continue with Celebrex as needed for pain. If his symptoms progress we could consider a corticosteroid injection although these have had variable results in the past Plan: 1. Continue Celebrex daily and tramadol . He is using this sparingly. 2. Continue independent range of motion exercises and weightbearing as tolerated 3. Follow-up 6 months. He will need a BUN/creatinine at the time of his next Celebrex refill request Aman Stevens M.D. Department of Orthopaedic Surgery [facility] 12-23-2024 History of Presen t illness Narrative Images from the original note were not included. REASON FOR VISIT / CHIEF COMPLAINT CHIEF COMPLAINT: Naebel Pitts is a 44 year old male who presents today for follow up office visit. Patient presents with: Right Ankle - Follow Up, Pain HISTORY OF PRESENT ILLNESS (HPI) PAIN EVALUATION 12/21/20242035 Pain Level: 5 Pain Location: Ankle-Right Description: Aching;Sharp;Throbbing Duration Amount of Time: 6 Duration Units: Hours Frequency: Intermittent Intervention/Comfort measure: Medication;Reposition;Relaxatio n;Cold;Heat;Pillow support F/u right ankle arthritis s/p fracture dislocation of ankle . He reports that over the last month or so he is had an increase in his ankle pain feels it may be related to activity level and it may be related to weather changes. He has gone from taking his Celebrex intermittently to taking it on a daily basis. Any new injury, since being seen last: No Is there any overall improvement in your condition? No Does anything make it worse?: Yes, wt bearing Does anything make it better?: Yes, rest REVIEW OF SYMPTOMS: Integumentary: Any recent skin changes or rashes? No Neurologic: Any numbness or tingling in the LOCAL AREA? No Endocrine: Any diagnosis of diabetes? No Hematologic: Any recent bleeding episodes? No ALLERGIES ALLERGIES Allergen Reactions Aspirin Swelling, Anaphylaxis Took with percocet PAST MEDICAL HISTORY History reviewed. No pertinent past medical history. History reviewed. No pertinent surgical history. PHYSICAL EXAMINATION Vitals: There were no vitals taken for this visit. Body Habitus:no acute distress and alert and oriented Orientation: Normal: Oriented to person, place and time Psych: normal Sensation: sensation to light touch is grossly normal bilaterally Skin: Color, texture, turgor normal. No rashes or lesions Swelling: swelling noted of the ankle Stance: normal cervical posture, shoulder alignment, and no joint deformities or swelling noted Right Ankle Exam Tenderness The patient is experiencing tenderness in the medial malleolus (Patient is tender to palpation over the anterior joint line.). Swelling: mild Range of Motion Dorsiflexion: 10 Plantar flexion: 20 Eversion: 5 Inversion: 5 Muscle Strength Dorsiflexion: 4/5 Plantar flexion: 5/5 Anterior tibial: 4/5 Posterior tibial: 4/5 Gastrocsoleus: 5/5 Peroneal muscle: 4/5 Tests Anterior drawer: negative Varus tilt: negative Other Erythema: absent Scars: present Sensation: normal Pulse: present Imaging : X-rays of the ankle today show the ankle joint has maintained as previously noted alignment. There is still some mild narrowing of the tibial talar joint but it does not appear to have progressed since his last visit The fibular fracture remains healed and the hardware is in good position. 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 This plan was recommended he continue with Celebrex as needed for pain. If his symptoms progress we could consider a corticosteroid injection although these have had variable results in the past Plan: 1. Continue Celebrex daily and tramadol . He is using this sparingly. 2. Continue independent range of motion exercises and weightbearing as tolerated 3. Follow-up 6 months. He will need a BUN/creatinine at the time of his next Celebrex refill request Aman Stevens M.D. Department of Orthopaedic Surgery [facility] documented in this encounter [facility] 11-23-2024 Telephone encounter Note PDMP website reviewed and validated. Patient has been compliant and taking medication appropriately without evidence of suspicious activity. Will refill Rx. Saleem Banks PA-C [facility] 11-23-2024 Miscellaneous Notes PDMP website reviewed and validated. Patient has been compliant and taking medication appropriately without evidence of suspicious activity. Will refill Rx. Saleem Banks PA-C Patients called stating they received a message an appt is needed. They are leaving for vacation and he will need his refill for the pain. She said he only asks for 1 rx per month. They are asking if he can still have this refill and come in after vacation. documented in this encounter [facility] 11-23-2024 Telephone encounter Note Patients called stating they received a message an appt is needed. They are leaving for vacation and he will need his refill for the pain. She said he only asks for 1 rx per month. They are asking if he can still have this refill and come in after vacation. [facility] 11-16-2024 Radiology Diagnostic study note [facility] Imaging Services [address] [place] [address] [id number] CTA Head AND Neck W/ Contrast MR#: [id number] Acct: [id number] Name: NABEEL PITTS Rep #: [id number] : 1975 M 49 From: Umer Baig MD PCP: Dr. Jewels Encarnacion MD Status: REG ER Study:CTA Head AND Neck W/ Contrast Date of E xam: 11/16/24 Exam# [id number] Ordering Dr: Lupis Ascencio PROCEDURE: CTA HEAD AND NECK W/ CONTRAST 11/16/2024 REASON FOR EXAM: LEFT VISUAL DISTURBANCE TECHNIQUE: CTA imaging of the head and neck from the aortic arch to the skull vertex with out constrast and with intravenous contrast. Coronal and Sagittal reconstruction series were provided. 3D post processing with reformations, Maximum intensity projection (MIPs) Volume rendering and Shaded surface rendering was provided. CONTRAST: Isovue 370 VOLUME: 100 mL One or more dose reduction techniques were used (e.g., Automated exposure control, adjustment of the mA and/or kV according to patient size, use of iterative reconstruction technique). RADIATION DOSE SUMMARY: CTDlvol: 25 mGy DLP: 856.3 mGycm COMPARISON: Prior unenhanced CT scan of the head done earlier in the day. FINDINGS: Aortic Arch: Normal size and branching pattern. No significant atherosclerotic plaque. Brachiocephalic and Subclavians: Unremarkable RIGHT Carotid: Right CCA: Unremarkable. Right ICA: Unremarkable. Right ECA: Unremarkable. LEFT Carotid: Left CCA: Unremarkable. Left ICA: Unremarkable. Left ECA: Unremarkable. Vertebrals: Codominant. Arise from the subclavians. Both vertebrals form the basilar. RIGHT Vertebral: Unremarkable. LEFT Vertebral: Unremarkable. Anatomy: [place] anatomy is normal. Aneurysm or avm: No intracranial aneurysms or large vascular malformations are identified. Anterior cerebral arteries: Unremarkable: Middle cerebral arteries: Unremarkable. Basilar artery: Unremarkable. Posterior cerebral arteries: Unremarkable. Other major branches of the posterior circulation: Unremarkable. Major venous structures: Unremarkable. Other findings: Neck: No lymphadenopathy. Lungs: Bones: CT/CTA Head AND Neck W/ Contrast IMPRESSION: Unremarkable examination. Reading Location: [place] [address] CC: Dr. Jewels Encarnacion MD; WALT Diallo ~ Supervisor Inspection Department: Signed [facility] 11-16-2024 Radiology Diagnostic study note [facility] Imaging Services [address] [place] [id number] Brain/Head without Contrast MR#: [id number] Acct: [id number] Name: NABEEL PITTS Rep #: [id number] : 1975 M 49 From: Umer Baig MD PCP: Dr. Jewels Encarnacion MD Status: REG ER Study:Brain/Head without Contrast Date of Exa m: 11/16/24 Exam# [id number] Ordering Dr: Lupis Ascencio PROCEDURE: BRAIN/HEAD WITHOUT CONTRAST 11/16/2024 REASON FOR EXAM: VISION DISTURBANCE TECHNIQUE: Head CT without intravenous contrast. Coronal and Sagittal reconstruction serieswere provided. One or more dose reduction techniques were used (e.g., Automated exposure control, adjustment of the mA and/or kV according to patient size, use of iterative reconstruction technique. RADIATION DOSE SUMMARY: CTDlvol: 44.99 mGy DLP: 880.47 mGycm COMPARISON: None FINDINGS: Brain: Normal CSF Spaces: Normal Sinuses/Mastoids: Clear at visualized levels Bones: Unremarkable CT/Brain/Head without Contrast IMPRESSION: NO ACUTE FINDINGS Reading Location: [place] [address] CC: Dr. Jewels Encarnacion MD; WALT Diallo ~ Supervisor Inspection Department: Signed [facility] 08-25-2024 Evaluation note Diagnosis Onset Date Resolution Morbid obesity chronic August 252024 3:02pm CITLALLI (obstructive sleep apnea) chronic August 25 3:02pm [facility] Work Phone: 1(216) 927-273111-20-2024 NoteHNO ID: [id number] Author: AMAN STEVENS MD Service: ? Author Type: Physician Type: Progress Notes Filed: 07/20/2024 08:23 Note Text: REASON FOR VISIT / CHIEF COMPLAINT CHIEF COMPLAINT: Nabeel Pitts is a 44 year old male who presents today for follow up office visit. Patient presents with: Right Ankle - Established Patient, Follow Up, Pain HISTORY OF PRESENT ILLNESS (HPI) PAIN EVALUATION 06/24/2024 0621 Pain Level: 5 Pain Location: Ankle-Right Description: Aching Duration Units: Days Frequency: Continuous Intervention/Comfort measure: Medication;Reposition;Cold;Pillow support F/u right ankle arthritis s/p fracture dislocation of ankle . He reports that over the last month or so he is had an increase in his ankle pain feels it may be related to activity level and it may be related to weather changes. He has gone from taking his Celebrex intermittently to taking it on a daily basis. Any new injury, since being seen last: No Is there any overall improvement in your condition? No Does anything make it worse?: Yes, wt bearing Does anything make it better?: Yes, rest REVIEW OF SYMPTOMS: Integumentary: Any recent skin changes or rashes? No Neurologic: Any numbness or tingling in the LOCAL AREA? No Endocrine: Any diagnosis of diabetes? No Hematologic: Any recent bleeding episodes? No ALLERGIES ALLERGIES Allergen Reactions Aspirin Swelling, Anaphylaxis Took with percocet PAST MEDICAL HISTORY No past medical history on file. No past surgical history on file. PHYSICAL EXAMINATION Vitals: There were no vitals taken for this visit. Body Habitus:no acute distress and alert and oriented Orientation: Normal: Oriented to person, place and time Psych: normal Sensation: sensation to light touch is grossly normal bilaterally Skin: Color, texture, turgor normal. No rashes or lesions Swelling: swelling noted of the ankle Stance: normal cervical posture, shoulder alignment, and no joint deformities or swelling noted Right Ankle Exam Tenderness The patient is experiencing tenderness in the medial malleolus (Patient is tender to palpation over the anterior joint line.). Swelling: mild Range of Motion Dorsiflexion: 10 Plantar flexion: 20 Eversion: 5 Inversion: 5 Muscle Strength Dorsiflexion: 4/5 Plantar flexion: 5/5 Anterior tibial: 4/5 Posterior tibial: 4/5 Gastrocsoleus: 5/5 Peroneal muscle: 4/5 Tests Anterior drawer: negative Varus tilt: negative Other Erythema: absent Scars: present Sensation: normal Pulse: present Imaging : X-rays of the ankle today show the ankle joint has maintained as previously noted alignment. There is still some mild narrowing of the tibial talar joint but it does not appear to have progressed since his last visit The fibular fracture remains healed and the hardware is in good position. 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 This plan was recommended he continue with Celebrex as needed for pain. If his symptoms progress we could consider a corticosteroid injection although these have had variable results in the past Plan: 1. Continue Celebrex new prescription for tramadol given. He is using this sparingly. 2. Continue independent range of motion exercises and weightbearing as tolerated 3. Follow-up 6 months Aman Stevens M.D. Department of Orthopaedic Surgery [facility]11-20-2024 History of Present illness Narrative* Aman Stevens MD - 06/24/2024 9:08 AM EST Images from the original note were not included. REASON FOR VISIT / CHIEF COMPLAINT CHIEF COMPLAINT: Nabeel Pitts is a 44 year old male who presents today for follow up office visit. Patient presents with: Right Ankle - Established Patient, Follow Up, Pain HISTORY OF PRESENT ILLNESS (HPI) PAIN EVALUATION 06/24/2024 0621 Pain Level: 5 Pain Location: Ankle-Right Description: Aching Duration Units: Days Frequency: Continuous Intervention/Comfort measure: Medication;Reposition;Cold;Pillow support F/u right ankle arthritis s/p fracture dislocation of ankle . He reports that over the last month or so he is had an increase in his ankle pain feels it may be related to activity level and it may berelated to weather changes. He has gone from taking his Celebrex intermittently to taking it on a daily basis. Any new injury, since being seen last: No Is there any overall improvement in your condition? No Does anything make it worse?: Yes, wt bearing Does anything make it better?: Yes, rest REVIEW OF SYMPTOMS: Integumentary: Any recent skin changes or rashes? No Neurologic: Any numbness or tingling in the LOCAL AREA? No Endocrine: Any diagnosis of diabetes? No Hematologic: Any recent bleeding episodes? No ALLERGIES ALLERGIES Allergen Reactions Aspirin Swelling, Anaphylaxis Took with percocet PAST MEDICAL HISTORY No past medical history on file. No past surgical history on file. PHYSICAL EXAMINATION Vitals: There were no vitals taken for this visit. Body Habitus:no acute distress and alert and oriented Orientation: Normal: Oriented to person, place and time Psych: normal Sensation: sensation to light touch is grossly normal bilaterally Skin: Color, texture, turgor normal. No rashes or lesions Swelling: swelling noted of the ankle Stance: normal cervical posture, shoulder alignment, and no joint deformities or swelling noted Right Ankle Exam Tenderness The patient is experiencing tenderness in the medial malleolus (Patient is tender to palpation overthe anterior joint line.). Swelling: mild Range of Motion Dorsiflexion: 10 Plantar flexion: 20 Eversion: 5 Inversion: 5 Muscle Strength Dorsiflexion: 4/5 Plantar flexion: 5/5 Anterior tibial: 4/5 Posterior tibial: 4/5 Gastrocsoleus: 5/5 Peroneal muscle: 4/5 Tests Anterior drawer: negative Varus tilt: negative Other Erythema: absent Scars: present Sensation: normal Pulse: present Imaging : X-rays of the ankle today show the ankle joint has maintained as previously noted alignment. There is still some mild narrowing of the tibial talar joint but it does not appear to have progressed since his last visit The fibular fracture remains healed and the hardware is in good position. 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 This plan was recommended he continue with Celebrex as needed for pain. If his symptoms progress we could consider a corticosteroid injection although these have had variable results in the past Plan: 1. Continue Celebrex new prescription for tramadol given. He is using this sparingly. 2. Continue independent range of motion exercises and weightbearing as tolerated 3. Follow-up 6 months Aman Stevens M.D. Department of Orthopaedic [facility] Telephone encounter Note * Telephone Encounter - Mo Ramsay PA-C - 06/04/2024 4:08 PM EDT Patient has not been seen in our office for > 3 months. Refill is not appropriate from our office at this time. [facility]10-31-2024 Miscellaneous Notes* Telephone Encounter - Mo Ramsay PA-C - 06/04/2024 4:08 PM EDT Patient has not been seen in our office for > 3 months. Refill is not appropriate from our office at this time. [facility] Telephone encounter Note * Telephone Encounter - Saleem Banks PA-C - 02/21/2024 3:06 PM EDT PDMP website reviewed and validated. Patient has been compliant and taking medication appropriatelywithout evidence of suspicious activity. Will refill Rx. Saleem Banks PA-C [facility]07-19-2024 Miscellaneous Notes* Telephone Encounter - Saleem Banks PA-C - 02/21/2024 3:06 PM EDT PDMP website reviewed and validated. Patient has been compliant and taking medication appropriatelywithout evidence of suspicious activity. Will refill Rx. Saleem Banks PA-C [facility] Telephone encounter Note * Telephone Encounter - Saleem Banks PA-C - 12/25/2023 8:23 AM EDT PDMP website reviewed and validated. Patient has been compliant and taking medication appropriatelywithout evidence of suspicious activity. Will refill Rx. Saleem Banks PA-C [facility]05-22-2024 Miscellaneous Notes* Telephone Encounter - Saleem Banks PA-C - 12/25/2023 8:23 AM EDT [facility] Patient has been compliant and taking medication appropriatelywithout evidence of suspicious activity. Will refill Rx. Saleem Banks PA-C [facility] History of Present illness Narrative* Sanaz Stanford Tech - 12/20/2023 11:40 AM EDT Radiology Service Progress Note PATIENT NAME: Nabeel Pitts DATE OF SERVICE: December 20, 2023 TIME: 8:47 AM PATIENT IDENTITY VERIFICATION COMPLETED USING TWO (2) IDENTIFIERS: Name and Date of confirmedby patient verbally. FALL SCREENING: Has the patient had 2 falls in the last year or 1 fall with injury or currently using an Ambulatory Assistive Device (Walker, Cane, Wheelchair, Crutches, etc.)? No PATIENT GENDER DATA: Male PATIENT RELEVANT IMPLANT DATA REVIEWED: Not Applicable PATIENT PRESENTS WITH AN IMPLANTABLE OR ATTACHED CAGE CLERK: No RADIOLOGY DEPARTMENT: General X-ray: Exam(s) Completed: Lower Extremity X- Ray(s): Ankle, Right and Wt. Bearing PERIPHERAL IV DATA: Not applicable SIGNED BY: Chao Quesada December 20, 2023 8:47 AM documented [facility] History of Present illness Narrative* Aman Stevens MD - 12/20/2023 8:54 AM EDT Images from the original note were not included. REASON FOR VISIT / CHIEF COMPLAINT CHIEF COMPLAINT: Nabeel Pitts is a 44 year old male who presents today for follow up office visit. Patient presents with: Right Ankle - Established Patient, Follow Up, Pain HISTORY OF PRESENT ILLNESS (HPI) PAIN EVALUATION 12/19/2023 1256 12/20/2023 0814 Pain Level: 6 6 Pain Location: Ankle-Right Ankle-Right Description: Aching;Sharp Aching;Sharp Duration Amount of Time: -- -- ongoing Duration Units: Months -- Frequency: Continuous Continuous Intervention/Comfort measure: Medication;Reposition;Cold Medication;Reposition;Cold;Positioning F/u right ankle arthritis s/p fracture dislocation of ankle . He reports that over the last month or so he is had an increase in his ankle pain feels it may be related to activity level and it may berelated to weather changes. He has gone from taking his Celebrex intermittently to taking it on a daily basis. Any new injury, since being seen last: No Is there any overall improvement in your condition? No Does anything make it worse?: Yes, wt bearing Does anything make it better?: Yes, rest REVIEW OF SYMPTOMS: Integumentary: Any recent skin changes or rashes? No Neurologic: Any numbness or tingling in the LOCAL AREA? No Endocrine: Any diagnosis of diabetes? No Hematologic: Any recent bleeding episodes? No ALLERGIES ALLERGIES Allergen Reactions Aspirin Swelling, Anaphylaxis Took with percocet PAST MEDICAL HISTORY No past medical history on file. No past surgical history on file. PHYSICAL EXAMINATION Vitals: There were no vitals taken for this visit. Body Habitus:no acute distress and alert and oriented Orientation: Normal: Oriented to person, place and time Psych: normal Sensation: sensation to light touch is grossly normal bilaterally Skin: Color, texture, turgor normal. No rashes or lesions Swelling: swelling noted of the ankle Stance: normal cervical posture, shoulder alignment, and no joint deformities or swelling noted Right Ankle Exam Tenderness The patient is experiencing tenderness in the medial malleolus (Patient is tender to palpation overthe anterior joint line.). Swelling: mild Range of Motion Dorsiflexion: 10 Plantar flexion: 20 Eversion: 5 Inversion: 5 Muscle Strength Dorsiflexion: 4/5 Plantar flexion: 5/5 Anterior tibial: 4/5 Posterior tibial: 4/5 Gastrocsoleus: 5/5 Peroneal muscle: 4/5 Tests Anterior drawer: negative Varus tilt: negative Other Erythema: absent Scars: present Sensation: normal Pulse: present Imaging : X-rays of the ankle today show the ankle joint has maintained as previously noted alignment. There is still some mild narrowing of the tibial talar joint but it does not appear to have progressed since his last visit The fibular fracture remains healed and the hardware is in good position. 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 This plan was recommended he continue with Celebrex as needed for pain. If his symptoms progress we could consider a corticosteroid injection although these have had variable results in the past Plan: 1. Continue Celebrex 2. Continue independent range of motion exercises and weightbearing as tolerated 3. Follow-up 6 months Aman Stevens M.D. Department of [facility] documented in this encounterDoctors Hospital02-28-2024 Miscellaneous Notes* Telephone Encounter - Saleem Banks PA-C - 10/02/2023 5:13 PM EST PDMP website reviewed and validated. Patient has been compliant and taking medication appropriatelywithout evidence of suspicious activity. Will refill Rx. Saleem Banks PA-C documented in this encounterDoctors Hospital02-16-2024 Miscellaneous Notes* Telephone Encounter - Cristin Farrar - 09/20/2023 1:34 PM EST Patient read MyChart. Called and LVM again letting patient know we had to cancel his appointment on 12/16/23, asked him tocall back to reschedule. 3rd attempt to contact the patient, closing encounter. * Telephone Encounter - Cristin Farrar - 09/16/2023 12:24 PM EST Called and left a message letting patient know we need to reschedule the appointment with on 12/16/23. He will be in surgery on Saturday mornings. Sent MyChart. documented in this encounterDoctors Hospital11-13-2023 History of Present illness Narrative* Aman Stevens MD - 06/17/2023 1:19 PM EST Images from the original note were not included. REASON FOR VISIT / CHIEF COMPLAINT CHIEF COMPLAINT: Nabeel Pitts is a 44 year old male who presents today for follow up office visit. Patient presents with: Right Ankle - Follow Up HISTORY OF PRESENT ILLNESS (HPI) PAIN EVALUATION 06/17/2023 0920 Pain Level: 4 Pain Location: Ankle-Right Description: Aching Duration Amount of Time: -- ongoing Frequency: Continuous Intervention/Comfort measure: Medication;Relaxation;Cold F/u right ankle arthritis s/p fracture dislocation of ankle he has been off of his Celebrex for a little while pending results of his creatinine level. He did have this completed. He reports that hispain is essentially unchanged from previous visits. He is weightbearing as tolerated in the fracture orthosis. Any new injury, since being seen last: No Is there any overall improvement in your condition? No Does anything make it worse?: Yes, wt bearing Does anything make it better?: Yes, rest REVIEW OF SYMPTOMS: Integumentary: Any recent skin changes or rashes? No Neurologic: Any numbness or tingling in the LOCAL AREA? No Endocrine: Any diagnosis of diabetes? No Hematologic: Any recent bleeding episodes? No ALLERGIES ALLERGIES Allergen Reactions Aspirin Swelling, Anaphylaxis Took with percocet PAST MEDICAL HISTORY No past medical history on file. No past surgical history on file. PHYSICAL EXAMINATION Vitals: There were no vitals taken for this visit. Body Habitus:no acute distress and alert and oriented Orientation: Normal: Oriented to person, place and time Psych: normal Sensation: sensation to light touch is grossly normal bilaterally Skin: Color, texture, turgor normal. No rashes or lesions Swelling: swelling noted of the ankle Stance: normal cervical posture, shoulder alignment, and no joint deformities or swelling noted Right Ankle Exam Tenderness The patient is experiencing tenderness in the medial malleolus (Patient is tender to palpation overthe anterior joint line.). 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 Plan: 1. Prescription for Celebrex rewritten 2. Continue independent range of motion exercises and weightbearing as tolerated 3. Follow-up 6 months Aman Stevens M.D. Department of Orth[facility] documented in this encounterDoctors Hospital10-18-2023 Miscellaneous Notes* Telephone Encounter - Saleem Banks PA-C - 05/22/2023 7:10 AM EDT Ronald has not contacted us to say he needs the refill in over a month. I will refuse the refill until Ronald contacts us. Saleem Banks PA-C * Telephone Encounter - Saleem Banks PA-C - 03/25/2023 10:26 AM EDT My chart message has been sent to Ronald asking him to have his creatinine checked. If ok we will refill the celebrex. Saleem Banks PA-C documented in this encounterDoctors Hospital07-18-2023 Miscellaneous Notes* Telephone Encounter - Saleem Banks PA-C - 02/19/2023 1:27 PM EDT PDMP website checked and validated. All prescriptions have been APPROPRIATELY filled. No suspiciousactivity was identified. 02/19/2023 by Saleem Banks PA-C documented in this encounterDoctors Hospital06-07-2023 History of Present illness Narrative* Aman Stevens MD - 01/09/2023 9:34 PM EDT Images from the original note were not included. REASON FOR VISIT / CHIEF COMPLAINT CHIEF COMPLAINT: Nabeel Pitts is a 44 year old male who presents today for follow up office visit. Patient presents with: Right Ankle - Follow Up HISTORY OF PRESENT ILLNESS (HPI) PAIN EVALUATION 12/24/2022 0854 Pain Level: 3 Pain Location: Ankle-Right Description: Dull;Aching Duration Amount of Time: -- ongoing Frequency: Continuous Intervention/Comfort measure: Medication F/u right ankle arthritis s/p fracture dislocation of ankle Any new injury, since being seen last: No Is there any overall improvement in your condition? No Does anything make it worse?: Yes, wt bearing Does anything make it better?: Yes, rest REVIEW OF SYMPTOMS: Integumentary: Any recent skin changes or rashes? No Neurologic: Any numbness or tingling in the LOCAL AREA? No Endocrine: Any diagnosis of diabetes? No Hematologic: Any recent bleeding episodes? No ALLERGIES ALLERGIES Allergen Reactions Aspirin Swelling, Anaphylaxis Took with percocet PAST MEDICAL HISTORY No past medical history on file. No past surgical history on file. PHYSICAL EXAMINATION Vitals: There were no vitals taken for this visit. Body Habitus:no acute distress and alert and oriented Orientation: Normal: Oriented to person, place and time Psych: normal Sensation: sensation to light touch is grossly normal bilaterally Skin: Color, texture, turgor normal. No rashes or lesions Swelling: swelling noted of the ankle Stance: normal cervical posture, shoulder alignment, and no joint deformities or swelling noted Right Ankle Exam Tenderness The patient is experiencing tenderness in the medial malleolus (Patient is tender to palpation overthe anterior joint line.). 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 Plan: 1. Continue tramadol and Celebrex as previously ordered 2. Continue independent range of motion exercises and weightbearing as tolerated 3. Follow-up 6 months Aman Stevens M.D. Department of Orthopaedic [facility] documented in this encounterDoctors Hospital02-14-2023 Miscellaneous Notes* Telephone Encounter - Saleem Banks PA-C - 09/18/2022 3:44 PM EST [facility] website checked and validated. All prescriptions have been APPROPRIATELY filled. No suspiciousactivity was identified. 09/18/2022 by Saleem Banks PA-C * Telephone Encounter - Ximena Rivera MA - 09/18/2022 9:04 AM EST Last OV 07/02/2022- Rodney Next OV 12/24/2022 -Rodney Patient electronically sent a request for the following prescription(s) Requested Prescriptions Pending Prescriptions Disp Refills traMADol (ULTRAM) 50 mg tablet 21 tablet 0 Sig: Take 1 tablet by mouth every 8 hours as needed for pain for up to 7 days. Patient aware RX will be sent to pharmacy. No need to notify patient. Please review. Ximena Rivera MA documented in this encounterDoctors Hospital12-29-2022 Miscellaneous Notes* Telephone Encounter - Saleem Banks PA-C - 08/02/2022 9:55 AM EST [facility] website checked and validated. All prescriptions have been APPROPRIATELY filled. No suspiciousactivity was identified. 08/02/2022 by Saleem Banks PA-C documented in this encounterDoctors Hospital12-05-2022 History of Present illness Narrative* Aman Stevens MD - 07/09/2022 7:47 AM EST Images from the original note were not included. REASON FOR VISIT / CHIEF COMPLAINT CHIEF COMPLAINT: Nabeel Ptits is a 44 year old male who presents today for follow up office visit. Patient presents with: Right Ankle - Follow Up HISTORY OF PRESENT ILLNESS (HPI) PAIN EVALUATION 07/02/2022 0840 Pain Level: 4 Pain Location: Ankle-Right Description: Aching;Dull Duration Amount of Time: -- ongoing Frequency: Continuous Intervention/Comfort measure: Medication;Relaxation;Cold F/u right ankle arthritis s/p fracture dislocation of ankle Any new injury, since being seen last: No Is there any overall improvement in your condition? No Does anything make it worse?: Yes, wt bearing Does anything make it better?: Yes, rest REVIEW OF SYMPTOMS: Integumentary: Any recent skin changes or rashes? No Neurologic: Any numbness or tingling in the LOCAL AREA? No Endocrine: Any diagnosis of diabetes? No Hematologic: Any recent bleeding episodes? No ALLERGIES ALLERGIES Allergen Reactions Aspirin Swelling, Anaphylaxis Took with percocet PAST MEDICAL HISTORY No past medical history on file. No past surgical history on file. PHYSICAL EXAMINATION Vitals: There were no vitals taken for this visit. Body Habitus:no acute distress and alert and oriented Orientation: Normal: Oriented to person, place and time Psych: normal Sensation: sensation to light touch is grossly normal bilaterally Skin: Color, texture, turgor normal. No rashes or lesions Swelling: swelling noted of the ankle Stance: normal cervical posture, shoulder alignment, and no joint deformities or swelling noted Right Ankle Exam Tenderness The patient is experiencing tenderness in the medial malleolus (Patient is tender to palpation overthe anterior joint line.). 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 Plan: 1. Continue tramadol and Celebrex as previously ordered 2. Continue independent range of motion exercises and weightbearing as tolerated 3. Follow-up 6 months Aman Stevens M.D. Department of Orthopa[facility] documented in this encounterDoctors Hospital07-14-2022 Miscellaneous Notes* Telephone Encounter - Mo Ramsay PA-C - 02/15/2022 2:47 PM EDT PDMP website reviewed and validated. Patient has been compliant and taking medication appropriatelywithout evidence of suspicious activity. Will refill rx. Mo Ramsay PA-C February 15, 2022 2:47 PM documented in this encounterDoctors Hospital06-02-2022 History of Present illness Narrative* Aman Stevens MD - 01/04/2022 10:41 AM EDT Images from the original note were not included. REASON FOR VISIT / CHIEF COMPLAINT CHIEF COMPLAINT: Nabeel Pitts is a 44 year old male who presents today for follow up office visit. Patient presents with: Right Ankle - Follow Up HISTORY OF PRESENT ILLNESS (HPI) PAIN EVALUATION 12/25/2021 0942 Pain Level: 4 Pain Location: Ankle-Right Description: Stabbing Duration Amount of Time: ongoing Frequency: Continuous Intervention/Comfort measure: Medication;Cold;Relaxation;Other: See comment brace F/u right ankle arthritis s/p fracture dislocation of ankle Any new injury, since being seen last: No Is there any overall improvement in your condition? No Does anything make it worse?: Yes, wt bearing Does anything make it better?: Yes, rest REVIEW OF SYMPTOMS: Integumentary: Any recent skin changes or rashes? No Neurologic: Any numbness or tingling in the LOCAL AREA? No Endocrine: Any diagnosis of diabetes? No Hematologic: Any recent bleeding episodes? No ALLERGIES ALLERGIES Allergen Reactions Aspirin Swelling, Anaphylaxis Took with percocet PAST MEDICAL HISTORY No past medical history on file. No past surgical history on file. PHYSICAL EXAMINATION Vitals: There were no vitals taken for this visit. Body Habitus:no acute distress and alert and oriented Orientation: Normal: Oriented to person, place and time Psych: normal Sensation: sensation to light touch is grossly normal bilaterally Skin: Color, texture, turgor normal. No rashes or lesions Swelling: swelling noted of the ankle Stance: normal cervical posture, shoulder alignment, and no joint deformities or swelling noted Right Ankle Exam Tenderness The patient is experiencing tenderness in the medial malleolus (Patient is tender to palpation overthe anterior joint line.). Swelling: mild Range of Motion Dorsiflexion: 10 Plantar flexion: 20 Eversion: 5 Inversion: 5 Muscle Strength Dorsiflexion: 4/5 Plantar flexion: 5/5 Anterior tibial: 4/5 Posterior tibial: 4/5 Gastrocsoleus: 5/5 Peroneal muscle: 4/5 Tests Anterior drawer: negative Varus tilt: negative Other Erythema: absent Scars: present Sensation: normal Pulse: present Imaging : XR ANKLE GENERAL 3V AP/LAT/OBL RIGHT Narrative: * * *Final Report* * * DATE OF EXAM: Dec 25 2021 10:20AM FUNMILAYO [id number] - XR ANKLE 3V AP/LAT/OBL RT / PROCEDURE REASON: multiple diagnoses * * * * Physician Interpretation * * * * EXAMINATION / TECHNIQUE: XR ANKLE 3V AP/LAT/OBL RT PATIENT/TECHNOLOGIST PROVIDED HISTORY: EVAL FX CLINICAL INFORMATION ( PROVIDED BY ORDERING CLINICIAN) : Post-traumatic arthritis of ankle, right Chronic pain of right ankle Chronic pain of right ankle COMPARISON: 04/02/2016 RESULT: Lateral distal fibular plate and screw construct are unchanged in appearance without evidence of complication or failure. Remote healed distal fibular fracture. Ankle mortise is maintained. Talar dome is unremarkable. Chronic appearing ossicles along the medial aspect of the talus, unchanged. No acute fracture or dislocation. No other significant abnormality. Impression: IMPRESSION: Post-operative changes. No significant change from prior. 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 Plan: 1. New prescription for tramadol 2. Continue independent range of motion exercises and weightbearing as tolerated 3. Follow-up 6 months Aman Stevens M.D. Department of Orthopa[facility] documented in this encounterDoctors Hospital05-23-2022 Miscellaneous Notes* [facility] Portillo) - 12/25/2021 11:20 AM EDT Radiology Service Progress Note PATIENT NAME: Nabeel Pitts DATE OF SERVICE: December 25, 2021 TIME: 10:21 AM PATIENT IDENTITY VERIFICATION COMPLETED USING TWO (2) IDENTIFIERS: Name and Date of confirmedby patient verbally. FALL SCREENING: Has the patient had 2 falls in the last year or 1 fall with injury or currently using an Ambulatory Assistive Device (Walker, Cane, Wheelchair, Crutches, etc.)? No PATIENT GENDER DATA: Male PATIENT RELEVANT IMPLANT DATA REVIEWED: Not Applicable RADIOLOGY DEPARTMENT: General X-ray: Exam(s) Completed: Lower Extremity X- Ray(s): Ankle, Right PERIPHERAL IV DATA: Not applicable SIGNED BY: RT Bandar(Akin) December 25, 2021 10:21 AM documented in this encounterDoctors Hospital04-20-2022 Miscellaneous Notes* Telephone Encounter - Mo Ramsay PA-C - 11/22/2021 3:37 PM EDT PDMP website reviewed and validated. Patient has been compliant and taking medication appropriatelywithout evidence of suspicious activity. Will refill rx. Mo Ramsay PA-C November 22, 2021 3:37 PM * Telephone Encounter - Fatimah Hernandez - 11/22/2021 1:51 PM EDT Patient has been identified by name and date of : Yes Pending Prescriptions Disp Refills TRAMADOL 50 MG TABLET 21 tablet 0 Sig: Take 1 tablet by mouth every 8 hours as needed for pain for up to 7 days. PRABHU Class: C-IV LORNA: No RX INSTRUCTIONS: Patient aware RX will be sent to pharmacy. No need to notify patient. Fatimah Hernandez documented in this encounterDo[facility] HospitalEval[facility]aint [facility]* Diagnosis Chronic pain of right ankle Post-traumatic arthritis of ankle, right [facility]* Diagnosis Post-traumatic arthritis of ankle, right Chronic pain of right ankle [facility]* Diagnosis Post-traumatic arthritis of ankle, right- Primary Chronic pain of right ankle [facility]* Diagnosis Post-traumatic arthritis of ankle, right Chronic pain of right ankle [facility] Diagnosis Post-traumatic arthritis of ankle, right- Primary Chronic pain of right ankle [facility] Diagnosis Post-traumatic arthritis of ankle, right Chronic pain of right ankle [facility]* Diagnosis Post-traumatic arthritis of ankle, right Chronic pain of right ankle [facility]* Diagnosis Post-traumatic arthritis of ankle, right Chronic pain of right ankle [facility]* 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)- Primary Encounter for long-term (current) use of non-steroidal anti-inflammatories [facility] Diagnosis Post-traumatic arthritis of ankle, right- Primary [facility]* Diagnosis Post-traumatic arthritis of ankle, right Chronic pain of right ankle [facility] Diagnosis Post-traumatic arthritis of ankle, right- Primary [facility]* Diagnosis Post-traumatic arthritis of ankle, right Chronic pain of right ankle [facility]* Diagnosis Post-traumatic arthritis of ankle, right Chronic pain of right ankle Ankle arthritis Unspecified arthropathy, ankle and foot Post-traumatic arthritis of ankle, right- Primary Chronic pain of right ankle- Primary Post-traumatic arthritis of ankle, right Post-traumatic arthritis of ankle, right [facility]* Diagnosis Post-traumatic arthritis of ankle, right Chronic pain of right ankle Ankle arthritis Unspecified arthropathy, ankle and foot Post-traumatic arthritis of ankle, right- Primary Chronic pain of right ankle- Primary Post-traumatic arthritis of ankle, right Post-traumatic arthritis of ankle, right Chronic pain of right ankle [facility] Diagnosis Post-traumatic arthritis of ankle, right Chronic pain of right ankle Ankle arthritis Unspecified arthropathy, ankle and foot Post-traumatic arthritis of ankle, right- Primary Chronic pain of right ankle- Primary Post-traumatic arthritis of ankle, right Post-traumatic arthritis of ankle, right Chronic pain of right ankle [facility] Diagnosis Post-traumatic arthritis of ankle, right Chronic pain of right ankle Ankle arthritis Unspecified arthropathy, ankle and foot Post-traumatic arthritis of ankle, right- Primary Chronic pain of right ankle- Primary Post-traumatic arthritis of ankle, right Post-traumatic arthritis of ankle, right Chronic pain of right ankle [facility] Diagnosis Post-traumatic arthritis of ankle, right Chronic pain of right ankle Ankle arthritis Unspecified arthropathy, ankle and foot Post-traumatic arthritis of ankle, right- Primary Chronic pain of right ankle- Primary Post-traumatic arthritis of ankle, right Post-traumatic arthritis of ankle, right Chronic pain of right ankle [facility]* Diagnosis Post-traumatic arthritis of ankle, right Chronic pain of right ankle Ankle arthritis Unspecified arthropathy, ankle and foot Post-traumatic arthritis of ankle, right- Primary Chronic pain of right ankle- Primary Post-traumatic arthritis of ankle, right Post-traumatic arthritis of ankle, right Chronic pain of right ankle [facility] Diagnosis Post-traumatic arthritis of ankle, right Chronic pain of right ankle Ankle arthritis Unspecified arthropathy, ankle and foot Post-traumatic arthritis of ankle, right- Primary Chronic pain of right ankle- Primary Post-traumatic arthritis of ankle, right Post-traumatic arthritis of ankle, right- Primary Post-traumatic arthritis of ankle, right [facility] Additional Instructions You have an appointment at the ophthalmology office at [address] Verma at the address above. Please arrive 10 minutes early.[facility] Work Phone: [facility] ([facility] Diagnostic Procedure Only (Routine) - Pending Review Specialty Diagnoses / Procedures Referred By Roosevelt son Referred To Contact XR IMAGING Diagnoses Post-traumatic arthritis of ankle, right Chronic pain of right ankle Procedures XR ANKLE GENERAL 3V AP/LAT/OBL RIGHT RADEX ANKLE COMPLETE MINIMUM 3 VIEWS Aman Stevens MD [address] [place] [address] Xr Imaging Referral ID Status Reason Start Date Expiration Date Visits Requested Visits Authorized [id number] Pending Review Auto-Generat ed Referral 12/25/2021 01/24/2023 1 1 [facility] for referral (narrative)* Diagnostic Procedure Only (Routine) - Closed Specialty Diagnoses / Procedures Referred By Roosevelt son Referred To Contact XR IMAGING Diagnoses Post-traumatic arthritis of ankle, right Procedures XR ANKLE GENERAL 3V AP/LAT/OBL RIGHT RADEX ANKLE COMPLETE MINIMUM 3 VIEWS Aman Stevens MD [address] [phone] [place] [address] Referral ID Status Reason Start Date Expiration Date V isits Requested Visits Authorized [id number] Closed Auto-Generate d Referral 12/20/2023 01/18/2025 1 1 [facility] for referral (narrative)* Diagnostic Procedure Only (Routine) - Closed Specialty Diagnoses / Procedures Referred By Contac t Referred To Contact XR IMAGING Diagnoses Post-traumatic arthritis of ankle, right Procedures XR ANKLE GENERAL 3V AP/LAT/OBL RIGHT RADEX ANKLE COMPLETE MINIMUM 3 VIEWS Aman Stevens MD [address] [place] [address] [place] [address] Referral ID Status Reason Start Date Expiration Date V isits Requested Visits Authorized [id number] Closed Auto-Generate d Referral 12/20/2023 01/18/2025 1 1 [facility] for referral (narrative)No reason for referral information availableWBarnesville [facility] Work Phone: [facility] for visit Narrative* Diagnostic Procedure Only (Routine) - Pending Review Specialty Diagnoses / Procedures Referred By Contac t Referred To Contact XR IMAGING Diagnoses Post-traumatic arthritis of ankle, right Chronic pain of right ankle Procedures XR ANKLE GENERAL 3V AP/LAT/OBL RIGHT RADEX ANKLE COMPLETE MINIMUM 3 VIEWS Aman Stevens MD [address] [phone] Xr Imaging Referral ID Status Reason Start Date Expiration Date Visits Requested Visits Authorized [id number] Pending Review Auto-Generat ed Referral 12/25/2021 01/24/2023 1 1 [facility] for visit Narrative* Diagnostic Procedure Only (Routine) - Closed Specialty Diagnoses / Procedures Referred By Contac t Referred To Contact XR IMAGING Diagnoses Post-traumatic arthritis of ankle, right Procedures XR ANKLE GENERAL 3V AP/LAT/OBL RIGHT RADEX ANKLE COMPLETE MINIMUM 3 VIEWS Aman Stevens MD [address] [address] [place] [address] Referral ID Status Reason Start Date Expiration Date V isits Requested Visits Authorized [id number] Closed Auto-Generate d Referral 12/20/2023 01/18/2025 1 1 [facility] Reason for Referral Specialty Diagnoses / Procedures Referred By Roosevelt t Referred To Contact XR IMAGING Diagnoses Post-traumatic arthritis of ankle, right Chronic pain of right ankle Procedures XR ANKLE GENERAL 3V AP/LAT/OBL RIGHT RADEX ANKLE COMPLETE MINIMUM 3 VIEWS Aman Stevens MD [address] [address] Xr Imaging Referral ID Status Reason Start Date Expiration Date Visits Re quested Visits Authorized [id number] Closed 12/25/2021 01/24/2023 1 1 Chief Complaint and Reason for Visit Chief Complaint Admit Date Re-establish CITLALLI August 25, 2024 3 :02pm Vision changes November 16, 2024 10: 22am Reason for Visit Admit Date Morbid obesity August 25, 2024 3 :02pm CITLALLI (obstructive sleep apnea) August 252024 3:02pm Family History No Family History Records Found Relationship Condition Age at Onset Recorded Date/T gui father Cardiac disease Unknown Myocardial infarction Unknown Malignant neoplasm Unknown Advance Directives No Advanced Directives Records Found Advance Directive Response Recorded Date/ Time Living Will No December 06, 2018 4: 23am Do you have a Healthcare Power of Manager Intelligence? No December 06, 2018 4:23am Living Will No November 16, 2024 11:34am Do you have a Healthcare Power of Manager Intelligence? No November 16, 2024 11:34am Summary Purpose Additional Source Comments Source Comments (unrecognize d section and content) In the event this informatio n is protected by the Federal Confidentiality of Alcohol and Drug Abuse Patient Records regulations: The Federal rules restrict any use of the information to criminally investigate or prosecute any alcohol or drug abuse patient.[facility] HospitalIn the event this information is protected by the Federal Confidentiality of Alcohol and Drug Abuse Patient Records regulations: The Federal rules restrict any use of the information to criminally investigate or prosecute any alcohol or drug abuse patient.[facility] HospitalIn the event this information is protected by the Federal Confidentiality of Alcohol and Drug Abuse Patient Records regulations: The Federal rules restrict any use of the information to criminally investigate or prosecute any alcohol or drug abuse patient.[facility] HospitalIn the event this information is protected by the Federal Confidentiality of Alcohol and Drug Abuse Patient Records regulations: The Federal rules restrict any use of the information to criminally investigate or prosecute any alcohol or drug abuse patient.[facility] HospitalIn the event this information is protected by the Federal Confidentiality of Alcohol and Drug Abuse Patient Records regulations: The Federal rules restrict any use of the information to criminally investigate or prosecute any alcohol or drug abuse patient.[facility] HospitalIn the event this information is protected by the Federal Confidentiality of Alcohol and Drug Abuse Patient Records regulations: The Federal rules restrict any use of the information to criminally investigate or prosecute any alcohol or drug abuse patient.[facility] HospitalIn the event this information is protected by the Federal Confidentiality of Alcohol and Drug Abuse Patient Records regulations: The Federal rules restrict any use of the information to criminally investigate or prosecute any alcohol or drug abuse patient.[facility] HospitalIn the event this information is protected by the Federal Confidentiality of Alcohol and Drug Abuse Patient Records regulations: The Federal rules restrict any use of the information to criminally investigate or prosecute any alcohol or drug abuse patient.[facility] HospitalIn the event this information is protected by the Federal Confidentiality of Alcohol and Drug Abuse Patient Records regulations: The Federal rules restrict any use of the information to criminally investigate or prosecute any alcohol or drug abuse patient.[facility] HospitalIn the event this information is protected by the Federal Confidentiality of Alcohol and Drug Abuse Patient Records regulations: The Federal rules restrict any use of the information to criminally investigate or prosecute any alcohol or drug abuse patient.[facility] HospitalIn the event this information is protected by the Federal Confidentiality of Alcohol and Drug Abuse Patient Records regulations: The Federal rules restrict any use of the information to criminally investigate or prosecute any alcohol or drug abuse patient.[facility] HospitalIn the event this information is protected by the Federal Confidentiality of Alcohol and Drug Abuse Patient Records regulations: The Federal rules restrict any use of the information to criminally investigate or prosecute any alcohol or drug abuse patient.[facility] HospitalIn the event this information is protected by the Federal Confidentiality of Alcohol and Drug Abuse Patient Records regulations: The Federal rules restrict any use of the information to criminally investigate or prosecute any alcohol or drug abuse patient.[facility] HospitalIn the event this information is protected by the Federal Confidentiality of Alcohol and Drug Abuse Patient Records regulations: The Federal rules restrict any use of the information to criminally investigate or prosecute any alcohol or drug abuse patient.[facility] HospitalIn the event this information is protected by the Federal Confidentiality of Alcohol and Drug Abuse Patient Records regulations: The Federal rules restrict any use of the information to criminally investigate or prosecute any alcohol or drug abuse patient.[facility] HospitalIn the event this information is protected by the Federal Confidentiality of Alcohol and Drug Abuse Patient Records regulations: The Federal rules restrict any use of the information to criminally investigate or prosecute any alcohol or drug abuse patient.[facility] HospitalIn the event this information is protected by the Federal Confidentiality of Alcohol and Drug Abuse Patient Records regulations: The Federal rules restrict any use of the information to criminally investigate or prosecute any alcohol or drug abuse patient.[facility] HospitalIn the event this information is protected by the Federal Confidentiality of Alcohol and Drug Abuse Patient Records regulations: The Federal rules restrict any use of the information to criminally investigate or prosecute any alcohol or drug abuse patient.[facility] HospitalIn the event this information is protected by the Federal Confidentiality of Alcohol and Drug Abuse Patient Records regulations: The Federal rules restrict any use of the information to criminally investigate or prosecute any alcohol or drug abuse patient.[facility] HospitalIn the event this information is protected by the Federal Confidentiality of Alcohol and Drug Abuse Patient Records regulations: The Federal rules restrict any use of the information to criminally investigate or prosecute any alcohol or drug abuse patient.[facility] HospitalIn the event this information is protected by the Federal Confidentiality of Alcohol and Drug Abuse Patient Records regulations: The Federal rules restrict any use of the information to criminally investigate or prosecute any alcohol or drug abuse patient.[facility] HospitalIn the event this information is protected by the Federal Confidentiality of Alcohol and Drug Abuse Patient Records regulations: The Federal rules restrict any use of the information to criminally investigate or prosecute any alcohol or drug abuse patient.[facility] HospitalIn the event this information is protected by the Federal Confidentiality of Alcohol and Drug Abuse Patient Records regulations: The Federal rules restrict any use of the information to criminally investigate or prosecute any alcohol or drug abuse patient.[facility] HospitalIn the event this information is protected by the Federal Confidentiality of Alcohol and Drug Abuse Patient Records regulations: The Federal rules restrict any use of the information to criminally investigate or prosecute any alcohol or drug abuse patient.[facility] HospitalIn the event this information is protected by the Federal Confidentiality of Alcohol and Drug Abuse Patient Records regulations: The Federal rules restrict any use of the information to criminally investigate or prosecute any alcohol or drug abuse patient.[facility] HospitalIn the event this information is protected by the Federal Confidentiality of Alcohol and Drug Abuse Patient Records regulations: The Federal rules restrict any use of the information to criminally investigate or prosecute any alcohol or drug abuse patient.[facility] HospitalIn the event this information is protected by the Federal Confidentiality of Alcohol and Drug Abuse Patient Records regulations: The Federal rules restrict any use of the information to criminally investigate or prosecute any alcohol or drug abuse patient.[facility] HospitalIn the event this information is protected by the Federal Confidentiality of Alcohol and Drug Abuse Patient Records regulations: The Federal rules restrict any use of the information to criminally investigate or prosecute any alcohol or drug abuse patient.[facility] HospitalIn the event this information is protected by the Federal Confidentiality of Alcohol and Drug Abuse Patient Records regulations: The Federal rules restrict any use of the information to criminally investigate or prosecute any alcohol or drug abuse patient.[facility] Reason for Visit (unrecogniz ed section and content) Reason Onset Date Comments Refill Request 11/22/2021 Reason Comments Follow Up Specialty Diagnoses / Procedures Referred By Contact Referred To Contact Orthopedics / ORTHOPAEDIC SURGERY Diagnoses FOLLOW UP ANKLE PAIN RT Procedures GEGE Aman Gonzalez MD [address] [place] [address] Aman Stevens MD [address] [place] [address] Referral ID Status Reason Start Date Expiration Date Visits Re quested Visits Authorized [id number] Closed 12/25/2021 12/25/2021 1 1 Reason Onset Date Comments Refill Request 02/15/2022 Reason Onset Date Comments Refill Request 03/16/2022 Reason Comments Follow Up Specialty Diagnoses / Procedures Referred By Contact Referred To Contact Orthopedics / ORTHOPAEDIC SURGERY Diagnoses Ankle Pain Follow up Procedures REFERRAL TO [facility] COUNSEL[facility] Aman Dyer MD [address] [place] [address] Aman Stevens MD [address] [place] [address] Referral ID Status Reason Start Date Expiration Date Visits Re quested Visits Authorized [id number] Closed 07/02/2022 08/31/2022 1 1 Reason Onset Date Comments Refill Request 08/02/2022 Reason Onset Date Comments Refill Request 09/18/2022 Specialty Diagnoses / Procedures Referred By Contac t Referred To Contact Orthopedics / ORTHOPAEDIC SURGERY Diagnoses 6 month f/u R ankle Procedures GEGE ESTABLISH Self Aman Stevens MD [address] [place] [address] Referral ID Status Reason Start Date Expiration Date V isits Requested Visits Authorized [id number] Outside PCP 12/24/2022 03/24/2023 1 1 Reason Onset Date Comments Refill Request 02/19/2023 Reason Comments Refill Request Reason Onset Date Comments Refill Request 03/25/2023 Specialty Diagnoses / Procedures Referred By Contact Referred To Contact Orthopedics / ORTHOPAEDIC SURGERY Diagnoses 6 m f/u, right ankle BWC Procedures GEGE ESTABLISH Aman Stevens MD [address] [place] [address] Aman Stevens MD [address] [place] [address] Referral ID Status Reason Start Date Expiration Date Visits Re quested Visits Authorized [id number] Closed 06/17/2023 06/17/2023 1 1 Reason Comments Appointment Cancelled Reason Onset Date Comments Refill Request 10/02/2023 Reason Comments Established Patient Follow Up Pain Specialty Diagnoses / Procedures Referred By Contac t Referred To Contact Orthopedics / ORTHOPAEDIC SURGERY Diagnoses right ankle 6 month followup BWC Procedures GEGE ESTABLISH Aman Fitzgerald MD [address] [place] [address] Referral ID Status Reason Start Date Expiration Date Visits Re quested Visits Authorized [id number] Closed 12/20/2023 12/20/2023 1 1 Reason Onset Date Comments Refill Request 12/24/2023 Reason Onset Date Comments Refill Request 02/20/2024 Reason Onset Date Comments Refill Request 06/03/2024 Reason Comments Established Patient Follow Up Pain Specialty Diagnoses / Procedures Referred By Contac t Referred To Contact Orthopedics / ORTHOPAEDIC SURGERY Diagnoses 6 month follow up, right ankle, BWC Procedures GEGE ESTABLISH Self Aman Stevens MD [address] [place] [address] Referral ID Status Reason Start Date Expiration Date Visits Re quested Visits Authorized [id number] Closed 06/24/2024 06/24/2024 1 1 Reason Onset Date Comments Refill Request 11/21/2024 Reason Onset Date Comments Refill Request 11/23/2024 Reason Onset Date Comments Refill Request 01/04/2025 Reason Comments Follow Up Pain Specialty Diagnoses / Procedures Referred By Contact Referred To Contact Orthopedics / ORTHOPAEDIC SURGERY Diagnoses 6 month follow up, right ankle, C Procedures GEGE ESTABLISH Aman Stevens MD [address] [address] Phone: tel: fax: Aman Stevens MD [address] [address] Phone: tel: fax: Referral ID Status Reason Start Date Expiration Date Visits Re quested Visits Authorized [id number] Closed 12/23/2024 12/23/2024 1 1 Care Teams (unrecognized sec tion and content) Plumber Cub Relationship Specialty Start Date End Date Jewels Encarnacion MD [address] [place], [place] [id number] PCP - General Family Practice 10/07/17 Plumber Cub Relationship Specialty Start Date End Date Jewels Encarnacion MD [address] [place], [place] [address] PCP - General Family Practice 10/07/17 Plumber Cub Relationship Specialty Start Date End Date Jewels Encarnacion MD [address] [place], [place] [address] PCP - General Family Practice 10/07/17 Plumber Cub Relationship Specialty Start Date End Date Jewels Encarnacion MD [address] [place], [place] [id number] PCP - General Family Practice 10/07/17 Plumber Cub Relationship Specialty Start Date End Date Jewels Encarnacion MD [address] [place] [address] PCP - General Family Practice 10/07/17 Plumber Cub Relationship Specialty Start Date End Date Jewels Encarnacion MD [address] [place] [address] PCP - General Family Medicine 10/07/17 Plumber Cub Relationship Specialty Start Date End Date Jewels Encarnacion MD [address] [place] [address] PCP - General Family Medicine 10/07/17 Plumber Cub Relationship Specialty Start Date End Date Jewels Encarnacion MD [address] [place] [address] PCP - General Family Medicine 10/07/17 Plumber Cub Relationship Specialty Start Date End Date Jewels Encarnacion MD [address] [place] [address] PCP - General Family Medicine 10/07/17 Plumber Cub Relationship Specialty Start Date End Date Jewels Encarnacion MD [address] [place] [address] PCP - General Family Medicine 10/07/17 Plumber Cub Relationship Specialty Start Date End Date Jewels Encarnacion MD [address] [place] [address] PCP - General Family Medicine 10/07/17 Plumber Cub Relationship Specialty Start Date End Date Jewels Encarnacion MD [address] [place] [address] PCP - General Family Medicine 10/07/17 Plumber Cub Relationship Specialty Start Date End Date Jewels Encarnacion MD [address] [place] [address] PCP - General Family Medicine 10/07/17 Plumber Cub Relationship Specialty Start Date End Date Jewels Encarnacion MD [address] [place] [address] PCP - General Family Medicine 10/07/17 Plumber Cub Relationship Specialty Start Date End Date Jewels Encarnacion MD [address] [place] [address] PCP - General Family Medicine 10/07/17 Plumber Cub Relationship Specialty Start Date End Date Jewels Encarnacion MD [address] [place] [address] PCP - General Family Medicine 10/07/17 Plumber Cub Relationship Specialty Start Date End Date Jewels Encarnacion MD [address] [place] [address] PCP - General Family Medicine 10/07/17 Plumber Cub Relationship Specialty Start Date End Date Jewels Encarnacion MD [address] [place] [address] PCP - General Family Medicine 10/07/17 Plumber Cub Relationship Specialty Start Date End Date Jewels Encarnacion MD [address] [place] [address] PCP - General Family Medicine 10/07/17 Plumber Cub Relationship Specialty Start Date End Date Jewels Encarnacion MD [address] [place] [address] PCP - General Family Medicine 10/07/17 Plumber Cub Relationship Specialty Start Date End Date Jewels Encarnacion MD [address] [place], [place] [address] PCP - General Family Medicine 10/07/17 Team Status: Active Member Role Status Dates Dr. Jewels Encarnacion MD Primary Care Provider Acti ve Team Status: Inactive Member Role Status Dates Dr. Jewels Encarnacion MD Primary Care Provider Acti ve Start: August 25, 2024 End: August 25, 2024 Dr. Jewels Encarnacion MD Referring Provider Active Start: August 25, 2024 End: August 25, 2024 Shala Foster WEATHERIZATION DIRECTOR, WEATHERIZATION DIRECTOR-C Attending Provider Active Start: August 25, 2024 End: August 25, 2024 Team Status: Inactive Member Role Status Dates Dr. Jewels Encarnacion MD Primary Care Provider Acti ve Start: November 16, 2024 End: November 16, 2024 Dr. Jose L Gan DO Emergency Provider Active S tart: November 16, 2024 End: November 16, 2024 Plumber Cub Relationship Specialty Start Date End Date Jewels Encarnacion MD [address] [facility] [place] [address] PCP - General Family Medicine 10/07/17 Plumber Cub Relationship Specialty Start Date End Date Jewels Encarnacion MD [address] [place], [place] [id number] PCP - General Family Medicine 10/07/17 Plumber Cub Relationship Specialty Start Date End Date Jewels Encarnacion MD [address] [facility] [facility] [address] [place] [place], [place] [id number] PCP - General Family Medicine 10/07/17 Plumber Cub Relationship Specialty Start Date End Date Jewels Encarnacion MD [address] [place] [address] PCP - General Family Medicine 10/07/17 Plumber Cub Relationship Specialty Start Date End Date Jewels Encarnacion MD [address] [place] [address] PCP - General Family Medicine 10/07/17 Goals (unrecognized section and content) Goals may be documented in a n alternate section (unrecognized sect ion and content) No Status Records FoundNo Status Records FoundNo Status Records Found INFORMATION SOURCE (unrecogn ized section and content) DATE CREATED AUTHOR 12/29/2024 [facility] DATE CREATED AUTHOR AUTHOR'S ORGANIZ ATION 01/19/2025 [facility] DATE CREATED AUTHOR AUTHOR'S ORGANIZ ATION 05/16/2025 [facility] FOR RECORDS PERTAINING TO PATIENTS WHO ARE OR HAVE BEEN ENROLLED IN A CHEMICAL DEPENDENCY/SUBSTANCEABUSE PROGRAM, SOME INFORMATION MAY BE OMITTED. This clinical summary was aggregated from multiple sources. Caution should be exercised in using it in the provision of clinical care. This summary normalizes information from multiple sources, and as a consequence, information in this document may materially change the coding, format and clinical context of patient data. In addition, data may be omitted in some cases. CLINICAL DECISIONS SHOULD BE BASED ON THE PRIMARY CLINICAL RECORDS. [facility]. provides no warranty or guarantee of the accuracy or completeness of information in this document.
[2025-05-26 12:08] LABS: Hematocrit 45.0 % (40-54); Hemoglobin 15.3 g/dL (13.0-16.5); Immature Granulocytes Count 0.030 X10^3/uL (0.0-0.0); Mean Corp Hgb Conc 34.0 g/dL (32-36); Mean Corpuscular Volume 92.8 fL (80-94); Mean Platelet Vol. 11.3 fl (6.2-12.0); NRBC Flagged by Analyzer 0 % (0-5); Platelet Count 255 K/mm3 (150-450); RBC Distribution Width CV 12.0 % (11.6-14.6); RBC Distribution Width SD 40.9 fl (35.1-43.9); Red Blood Count 4.85 M/mm3 (4.6-6.2); White Blood Count 8.9 K/mm3 (4.4-11.0)
[2025-05-26 13:16] LABS: AST(SGOT) 19 U/L (<=37); Alanine Aminotransfer ALT/SGPT 17 U/L (<=46); Albumin, Serum 4.6 g/dL (3.5-5.0); Alkaline Phosphatase 87 U/L (40-129); Anion Gap 11 (5-15); BUN 14 mg/dL (4-19); BUN/Creat Ratio 12.6 RATIO (10-20); Calcium,Total 9.7 mg/dL (7.6-11.0); Carbon Dioxide 26.5 mmol/L (21.0-32.0); Chloride 103 mmol/L (98-108); Cholesterol 169 mg/dL (<=200); Globulin 2.8 g/dL (2.2-4.2); Glucose 89 mg/dL (70-99); Low Density Lipoprotein Calc. 107 mg/dL; Potassium 4.4 mmol/L (3.3-5.1); Triglycerides 105 mg/dL; Very Low Density Lipoprotein 21 mg/dL (5-40); Vitamin B12 400 pg/mL (180-914); Vitamin D,25 Hydroxy 25.6 ng/mL (30-100); cholesterol:hdl ratio screen 3.91
[2025-06-01 12:08] LABS: Testosterone, % Free 2.74 % (1.50-4.20); Testosterone, Free 8.06 ng/dL (5.00-21.00)
== END | disposition home or self-care (01) ==
LOC: LAB 11:27
PROVIDERS: PCP Nurse Practitioner Family; Referring Provider Nurse Practitioner Family; Visit Provider Nurse Practitioner Family
DX: Z13.1 Encounter for screening for diabetes mellitus (principal); Z13.220 Encounter for screening for lipoid disorders; R53.83 Other fatigue
CPT/HCPCS: 36415; 80053; 80061; 82306; 82607; 83036; 84402; 84403; 85025